=== PATIENT | male | born 1940 | race Caucasian/White ===

== ENCOUNTER → 2016-02-22 | Outpatient (CLI) | payer OTHER, MEDICARE ==
[~2016-02-22] MED LIST: ASP81CT PO; ATEN25TA PO; ATOR80TA PO; CLOP75TA PO; ESZO3TAB30 PO; FENO135C PO; FINA5TAB PO; HYDR-3583 PO; LEVO500T69 PO; LISI20TA PO; METR500T PO; MTF500T PO; MULT1TAB34 PO; OMEP-10 PO; OMEP40CA36 PO; PGLT30T PO
--- OUTSIDE RECORDS SUMMARY | 2016-02-22 10:11 | XMS REPORT | Continuity of Care Document ---
Author Author [facility] Organization [facility] Address Unknown Phone Unavailable Care Team Providers Care Sales Engineer Name Role Phone PCP Unavailable Source Comments Some departments are not documenting in the electronic medical record. If you do not see the information that you expected, contact Release of Information in the Health Information Management department at [phone] for further assistance in locating additional records.[facility] Active Allergies and Adverse Reactions Allergen Noted Date Severity Reactions Comments Lovaza 02/17/2016 Low STOMACH UPSET Motrin 02/17/2016 Low STOMACH UPSET Current Medications Prescription Sig. Disp. Refills Start End Date Status Date atorvastatin (LIPITOR) 80 Take 80 mg by mouth Active mg tablet daily. chlorthalidone (HYGROTON) Take 12.5 mg by mouth Active 25 mg tablet daily. clopiDOGrel (PLAVIX) 75 Take 75 mg by mouth Active mg tablet daily. eszopiclone(+) (LUNESTA) Take by mouth. Active 3 mg tablet glimepiride (AMARYL) 4 mg Take 4 mg by mouth daily Active tablet with breakfast. lisinopril (PRINIVIL; Take 20 mg by mouth Active ZESTRIL) 20 mg tablet daily. metFORMIN (GLUCOPHAGE) Take 1,000 mg by mouth Active 1,000 mg tablet twice daily with meals. nebivolol (BYSTOLIC) 5 mg Take 5 mg by mouth daily. Active tablet nitroglycerin Take 1 [place] by mouth Active (NITROLINGUAL) 400 every 5 minutes as needed mcg/spray translingual (for chest pain). spray omeprazole DR(+) Take 40 mg by mouth daily Active (PRILOSEC) 40 mg capsule before breakfast. tamsulosin (FLOMAX) 0.4 Take 0.4 mg by mouth Active mg capsule daily. Do not crush, chew or open capsules. Take 30 minutes following the same meal each day. vitamins, B complex tab Take 1 Tab by mouth Active daily. aspirin 81 mg chewable Chew 81 mg by mouth Active tablet daily. Take with food. finasteride (PROSCAR) 5 Take 5 mg by mouth daily. Active mg tablet buPROPion XL (WELLBUTRIN Take 150 mg by mouth Active XL) 150 mg tablet every morning. Do not crush or chew. Active Problems Problem Noted Date Weakness 02/17/2016 Most Recent Encounters Date Type Specialty Providers Description 02/17/2016 Clinical Neurology Weakness (Primary Dx); Support Lumbar radiculopathy, chronic 02/17/2016 Office Visit Neurology Evon Hogluin MD Weakness ( Primary Dx) 02/17/2016 Orders Only Neurology Evon Holguin MD Social History Tobacco Use Types Packs/Day Years Used Date Never Smoker Smokeless Tobacco: Never Used Alcohol Use Drinks/Week oz/Week Comments No Last Filed Vital Signs Vital Sign Reading Time Taken Blood Pressure 157/82 02/17/2016 9:52 AM DEVULCANIZER TENDER Pulse 82 02/17/2016 9:52 AM DEVULCANIZER TENDER Temperature - - Respiratory Rate - - Height 1.778 m (5' 10") 02/17/2016 9:52 AM DEVULCANIZER TENDER Weight 95.6 kg (210 lb 12.2 oz) 02/17/2016 9:52 AM DEVULCANIZER TENDER Body Mass Index 30.24 02/17/2016 9:52 AM DEVULCANIZER TENDER Oxygen Saturation - - Plan of Care Date Type Specialty Providers Description 11/09/2016 Appointment Neurology Evon Holguin MD [address] [facility] [address] [place] [address] [phone] (Fax) Health Maintenance Due Date Last Done Comments Physical (Comprehensive) 1947 Exam Pertussis Vaccine 1951 Tetanus Vaccine 04/15/1959 Colorectal Cancer 1992 Screening Shingles Vaccine 2002 Prevnar/Pneumovax (#1) 04/15/2007 Influenza Vaccine 10/07/2015 Results from Last 3 Months QUANTIFERON TB (02/17/2016 1:40 PM) Component Value Range Quantiferon TB NEGATIVEComment: NEGATIVE Negative test result. M. tuberculosis complex infection unlikely. NIL 0.00 IU/mL Mitogen-NIL 7.33 IU/mL TB-NIL 0.00Comment: IU/mL The Nil tube value is used to determine if the patient has a preexisting immune response which could cause a false-positive reading on the test. In order for a test to be valid, the Nil tube must have a value of less than or equal to 8.0 IU/mL. The mitogen control tube is used to assure the patient has a healthy immune status and also serves as a control for correct blood handling and incubation. It is used to detect false-negative readings. The mitogen tube must have a gamma interferon value of greater than or equal to 0.5 IU/mL higher than the value of the Nil tube. The TB antigen tube is coated with the M. tuberculosis specific antigens. For a test to be considered positive, the TB antigen tube value minus the Nil tube value must be greater than or equal to 0.35 IU/mL. For additional information, please refer to http://education.MobGold/faq/QFT (This link is being provided for informational/ educational purposes only.) REPORT COMMENT: FASTING:NO Test Performed at: [facility] [address] [place] [address] ERAN PÉREZ DO,MPH COPPER (02/17/2016 1:40 PM) Component Value Range Copper, Serum 102Comment: 70-175 mcg/dL Test Performed at: [facility] [address] [address] WIL CORTEZ MD,FCAP VITAMIN B12 (02/17/2016 1:40 PM) Component Value Range Vitamin B12 424Comment: 200-1100 pg/mL Test Performed at: [facility] [address] [place] [address] ERAN PÉREZ DO,MPH THYROID STIMULATING HORMONE-TSH (02/17/2016 1:40 PM) Component Value Range TSH 3rd Generation 2.05Comment: 0.40-4.50 mIU/L Test Performed at: [facility] [address] [place] [address] ERAN PÉREZ DO,MPH CBC AND DIFF (02/17/2016 1:40 PM) Component Value Range White Blood Cells 7.2 3.8-10.8 Thousand/uL RBC 4.77 4.20-5.80 Million/uL Hemoglobin 14.6 13.2-17.1 g/dL Hematocrit 43.9 38.5-50.0 % MCV 91.9 80.0-100.0 fL MCH 30.6 27.0-33.0 pg MCHC 33.3 32.0-36.0 g/dL RDW 13.7 11.0-15.0 % Platelet Count 166 140-400 Thousand/uL MPV 9.7 7.5-11.5 fL Absolute Neutrophil Count 5767 4661-2261 cells/uL Absolute Lymph Count 814 (L) 850-3900 cells/uL Absolute Monocyte Count 518 200-950 cells/uL Absolute Eosinophil Count 43 15-500 cells/uL Absolute Basophil Count 58 0-200 cells/uL Neutrophils 80.1 % Lymphocytes 11.3 % Monocytes 7.2 % Eosinophils 0.6 % Basophils 0.8Comment: % Test Performed at: [facility] [place] [address] [place] [address] ERAN PÉREZ DO,MPH ACETYLCHOL HISTORICAL INTERPRETER AB BINDING (02/17/2016 1:40 PM) Component Value Range Acetylcholine binding AB <0.30Comment: nmol/L Reference Ranges for Acetylcholine Receptor Binding Antibody: Negative: < or=0.30 nmol/L Equivocal: 0.31-0.49 nmol/L Positive: > or=0.50 nmol/L Test Performed at: [facility] [address] [place] [address] ANDRE GARDNER MD PHD SYPHILIS AB SCREEN (02/17/2016 1:40 PM) Component Value Range Syphilis AB, Total NegativeComment: Negative No antibodies to T. pallidum (the agent causing syphilis) were detected in the specimen. This result, however, does not exclude very recent T. pallidum infection; testing of a second specimen, collected 2-4 weeks after this specimen, is recommended if the index of suspicion for recent infection is high. Test Performed at: [facility] [address] [address] KESHAV PARKS MD,PHD METHYLMALONIC ACID, SERUM (02/17/2016 1:40 PM) Component Value Range Methylmalonic Acid 215Comment: 87-318 nmol/L Test Performed at: [facility] [address] [place] [address] KESHAV PARKS MD,PHD CREATINE KINASE-CPK (02/17/2016 1:40 PM) Component Value Range Creatine Kinase 376 (H)Comment: 44-196 U/L Test Performed at: [facility] [address] [place] [address] ERAN PÉREZ DO,MPH
--- NOTE | 2016-02-22 11:10 | Diagnostic Imaging Report ---
PROCEDURE: MRI lumbar spine. TECHNIQUE: Multiplanar, multisequence MRI of the lumbar spine was performed without contrast. INDICATION: Bilateral leg weakness. COMPARISON: Comparison made with prior examination from 11/02/2011. FINDINGS: The alignment of the lumbar spine is normal. The vertebral body heights are well maintained. There is no spondylolysis or spondylolisthesis. No fractures are identified. Conus medullaris is seen at L1 and is normal in appearance. The T12-L1 disc is unremarkable. The L1-2 disc is unremarkable. The L2-3 disc is unremarkable. At L3-4, there is loss of disc height and signal intensity. There is broad-based annular bulging, facet disease, and thickening of the ligamentum flavum. There is moderate central spinal stenosis with encroachment upon the lateral recesses bilaterally as well as moderately severe bilateral neural foraminal encroachment. At L4-5, there is almost complete loss of disc height and signal intensity. There is broad-based annular bulging, facet disease, and thickening of the ligamentum flavum. There is moderately severe trefoil spinal stenosis resulting in encroachment upon the lateral recess bilaterally as well as moderately severe bilateral neural foraminal encroachment. At L5-S1, there is broad-based annular bulging resulting in slight effacement of the ventral thecal sac and some mild left neural foraminal encroachment. The abdominal aorta is nonaneurysmal. There are no other focal soft tissue abnormalities. IMPRESSION: Moderately severe lower lumbar spondylosis and degenerative disc disease as described. There is fairly significant spinal stenosis at L3-4 and L4-5 again as discussed above. Dictated by: Dictated on workstation # [id number]
== END ==
LOC: RAD 10:03
PROVIDERS: ATTEND Psychiatry & Neurology Neuromuscular Medicine
DX: M48.06 Spinal stenosis, lumbar region (principal)
CPT/HCPCS: 72148

== ENCOUNTER → 2016-04-19 | Outpatient (CLI) | payer OTHER, MEDICARE ==
--- OUTSIDE RECORDS SUMMARY | 2016-04-19 07:43 | XMS REPORT | Continuity of Care Document ---
Author Author [facility] Organization [facility] Address Unknown Phone Unavailable Care Team Providers Care Bolt Man Name Role Phone PCP Unavailable Source Comments Some departments are not documenting in the electronic medical record. If you do not see the information that you expected, contact Release of Information in the Health Information Management department at [phone] for further assistance in locating additional records.[facility] Active Allergies and Adverse Reactions Allergen Noted [...] mouth daily. Active tablet nitroglycerin Take 1 [place] by mouth Active (NITROLINGUAL) 400 every 5 [...] Recent Encounters Date Type Specialty Providers Description 03/03/2016 Orders Only Neurology Evon Holguin MD Lumbar radiculopathy, chronic (Primary Dx); Weakness; Abnormal MRI, lumbar spine 03/03/2016 Orders Only Neurology Hasmukh Shahid LPN Weakness 02/28/2016 Scan Only Neurology Evon Holguin MD 02/17/2016 Clinical Neurology Weakness (Primary Dx); Support Lumbar radiculopathy, chronic 02/17/2016 Office Visit Neurology Evon Holguin MD Weakness ( Primary Dx) 02/17/2016 Orders Only Neurology Evon Holguin MD Social History Tobacco Use Types Packs/Day Years Used Date Never Smoker Smokeless Tobacco: Never Used Alcohol Use Drinks/Week oz/Week Comments No Last Filed Vital Signs Vital Sign Reading Time Taken Blood Pressure 157/82 02/17/2016 9:52 AM MANAGER MERCHANDISING Pulse 82 02/17/2016 9:52 AM MANAGER MERCHANDISING Temperature - - Respiratory Rate - - Height 1.778 m (5' 10") 02/17/2016 9:52 AM MANAGER MERCHANDISING Weight 95.6 kg (210 lb 12.2 oz) 02/17/2016 9:52 AM MANAGER MERCHANDISING Body Mass Index 30.24 02/17/2016 9:52 AM MANAGER MERCHANDISING Oxygen Saturation - - Plan of Care Date Type Specialty Providers Description 11/09/2016 Appointment Neurology Evon Holguin MD [address] [facility] [address] [place] [address] [phone] (Fax) Health Maintenance Due Date Last Done Comments Physical (Comprehensive) 1947 Exam Pertussis Vaccine 1953 Tetanus Vaccine 04/15/1959 Colorectal Cancer 1992 Screening Shingles Vaccine 2002 Prevnar/Pneumovax (#1) 04/15/2007 Influenza Vaccine 10/06/2016 Results from Last 3 Months MRI L-SPINE WO CONTRAST (02/22/2016)QUANTIFERON TB (02/17/2016 1:40 PM) Component Value Range [...] IU/mL. For additional information, please refer to http://education.[employer]/faq/QFT (This link is being provided for informational/ educational purposes only.) REPORT COMMENT: FASTING:NO Test Performed at: [facility] [address] [place] [address] ERAN PÉREZ DO,MPH COPPER (02/17/2016 1:40 PM) Component Value Range Copper, Serum 102Comment: 70-175 mcg/dL Test Performed at: [facility] [address] [address] WIL CORTEZ MD,FCAP VITAMIN B12 (02/17/2016 1:40 PM) Component Value Range Vitamin B12 424Comment: 200-1100 pg/mL Test Performed at: [facility] [address] [place] [address] ERAN PÉREZ DO,MPH THYROID STIMULATING HORMONE-TSH (02/17/2016 1:40 PM) Component Value Range TSH 3rd Generation 2.05Comment: 0.40-4.50 mIU/L Test Performed at: [facility] [address] [place] [address] ERAN PÉREZ DO,MPH CBC AND DIFF (02/17/2016 1:40 PM) Component Value Range White Blood Cells 7.2 3.8-10.8 Thousand/uL RBC 4.77 4.20-5.80 Million/uL Hemoglobin 14.6 13.2-17.1 g/dL Hematocrit 43.9 38.5-50.0 % MCV 91.9 80.0-100.0 fL MCH 30.6 27.0-33.0 pg MCHC 33.3 32.0-36.0 g/dL RDW 13.7 11.0-15.0 % Platelet Count 166 140-400 Thousand/uL MPV 9.7 7.5-11.5 fL Absolute Neutrophil Count 5767 4600-3724 cells/uL Absolute Lymph Count 814 (L) 850-3900 cells/uL Absolute Monocyte Count 518 200-950 cells/uL Absolute Eosinophil Count 43 15-500 cells/uL Absolute Basophil Count 58 0-200 cells/uL Neutrophils 80.1 % Lymphocytes 11.3 % Monocytes 7.2 % Eosinophils 0.6 % Basophils 0.8Comment: % Test Performed at: [facility] [address] [place] [address] ERAN PÉREZ DO,MPH ACETYLCHOL PER DIEM INTERPRETER AB BINDING (02/17/2016 1:40 PM) Component Value Range Acetylcholine binding AB <0.30Comment: nmol/L Reference Ranges for Acetylcholine Receptor Binding Antibody: Negative: < or=0.30 nmol/L Equivocal: 0.31-0.49 nmol/L Positive: > or=0.50 nmol/L Test Performed at: [facility] [address] [place] [address] ANDRE GARDNER MD PHD SYPHILIS AB SCREEN [...] recent infection is high. Test Performed at: [facility]/[employer] [address] KESHAV PARKS MD,PHD METHYLMALONIC ACID, SERUM (02/17/2016 1:40 PM) Component Value Range Methylmalonic Acid 215Comment: 87-318 nmol/L Test Performed at: [facility] [id number] [place] [address] KESHAV PARKS MD,PHD CREATINE KINASE-CPK (02/17/2016 1:40 PM) Component Value Range Creatine Kinase 376 (H)Comment: 44-196 U/L Test Performed at: [facility] [address] [place] [address] ERAN PÉREZ DO,MPH EMG ORDER (02/17/2016)MISCELLANEOUS LAB TEST (02/17/2016) Specimen Blood
--- NOTE | 2016-04-19 09:26 | Diagnostic Imaging Report ---
CLINICAL INDICATION: Patient has bilateral arm/leg weakness x2 years. No known injury. EXAM: MRI of the cervical spine performed without IV contrast. Sequences include sagittal T1, sagittal T2, sagittal T2 fat-sat, and axial T2. COMPARISON: None. FINDINGS: Cervical spine has normal alignment with no fracture or dislocation. There is normal craniocervical and anterior atlanto-odontoid alignment. Besides the areas of tight central canal stenosis at the C5-C6 and C6-C7 levels, the cervical spinal cord has normal anatomic appearance with no abnormal cord signal. Limited visualization of the posterior fossa is unremarkable. There is no paraspinal soft tissue abnormality. There are hypertrophic and flowing osteophytes seen anteriorly throughout cervical spine which may be related to DISH. C1-C2: There are degenerative spurs involving the atlantoodontoid anteriorly. There is a small periodontal pannus. C2-C3: There is a small posterior disc bulge. C3-C4: There is a mild diffuse disc bulge, minimal ligament flavum buckling and bilateral facet arthropathy. There is moderate central canal narrowing and mild bilateral neural foramen narrowing. C4-C5: There is a diffuse disc bulge and mild bilateral facet arthropathy. There is mild central canal narrowing. There is mild loss of intervertebral disc height. C5-C6: There is a diffuse disc bulge with a moderate sized left paracentral disc osteophyte complex, mild loss of intervertebral disc height, mild bilateral facet arthropathy. There is moderate to severe central canal narrowing and severe bilateral neural foramen narrowing. C6-C7: There is a diffuse disc bulge with a moderate-sized broad posterior disc extrusion/herniation. There is ligamentum flavum buckling and mild facet arthropathy. There is severe central canal narrowing with near complete effacement of the thecal sac. There is severe bilateral neural foramen narrowing. C7-T1: Unremarkable. IMPRESSION: 1: There is multilevel cervical spine degenerative disease including hypertrophic anterior flowing osteophytes which may be seen with DISH. 2: There is kxbnjxoi-ti-vsjjaj multilevel cervical spine degenerative disc disease which is worse at the C5-C6 and C6-C7 levels. 3: There is a diffuse disc bulge with broad posterior disc herniation component, ligamentum flavum buckling, and facet arthropathy which causes severe central canal narrowing and severe bilateral neural foramen narrowing. 4: There is a C5-C6 diffuse disc bulge with moderate left paracentral disc osteophyte complex which causes ibszantq-pd-kvptvw central canal narrowing and severe bilateral neural foramen narrowing. Dictated by: Dictated on workstation # [id number]
== END ==
LOC: RAD 07:39
PROVIDERS: ATTEND Nurse Practitioner
DX: M50.322 Other cervical disc degeneration at C5-C6 level (principal); M62.81 Muscle weakness (generalized); M48.06 Spinal stenosis, lumbar region
CPT/HCPCS: 72141

== ENCOUNTER → 2016-06-19 | Outpatient (CLI) | payer OTHER, MEDICARE ==
--- NOTE | 2016-06-19 09:49 | Diagnostic Imaging Report ---
INDICATION: Followup right renal cell carcinoma. COMPARISON: 06/11/[address] of the abdomen 09/13/2015. DISCUSSION: Status post partial right nephrectomy, stable. The right kidney measures 8.4 cm. The left kidney measures 10.3 cm. No hydronephrosis or suspicious renal mass identified. No shadowing stone identified. The right ureteral jet was visualized during the exam. The left ureteral jet was not visualized. Urinary bladder is unremarkable. The liver parenchyma is hyperechoic, consistent with diffuse fatty infiltration. There is a 2.3 cm hypoechoic nodule within the right hepatic lobe which is indeterminate and malignancy is not excluded. This was not seen with certainty on the previous CT exam. Recommend multiphase contrast-enhanced CT of the abdomen and pelvis for further evaluation and to exclude the presence of metastatic disease. IMPRESSION: 1. Status post partial right nephrectomy. 2. Indeterminate 2.3 cm nodule within the right hepatic lobe. Recommend pre-and postcontrast enhanced CT images of the abdomen and pelvis for further evaluation. 3. Fatty infiltration of liver. Dictated by: Dictated on workstation # [id number]
== END ==
LOC: RAD 09:01
PROVIDERS: ATTEND Specialist
DX: N40.1 Benign prostatic hyperplasia with lower urinary tract symptoms (principal); C64.9 Malignant neoplasm of unspecified kidney, except renal pelvis
CPT/HCPCS: 76770

== ENCOUNTER → 2016-11-03 | Outpatient (CLI) | payer OTHER, MEDICARE ==
--- NOTE | 2016-11-03 17:50 | Diagnostic Imaging Report ---
INDICATION: Neck surgery three months ago. Continued weakness of the upper extremity. FINDINGS: Three views show good alignment of the vertebral bodies. Anterior fusion is present at C5 through C7. Bilateral pedicle screws appear intact in good position. Anterior plate is intact. Interbody bone grafts are in good alignment. There is no encroachment noted upon the canal. Bony spondylosis with anterior bridging is noted at C4 and C5. The atlantoaxial joint appears normal. IMPRESSION: 1. Anterior cervical fusion with interbody bone graft appearing in good alignment and no evidence of hardware complications from C5 through C7. 2. Bony spondylosis with anterior bridging C4 and C5. Dictated by: Dictated on workstation # [id number]
== END ==
LOC: RAD 13:34
PROVIDERS: ATTEND Neurological Surgery
DX: M47.812 Spondylosis without myelopathy or radiculopathy, cervical region (principal); Z98.1 Arthrodesis status
CPT/HCPCS: 72040

== ENCOUNTER → 2017-07-24 | Outpatient (CLI) | payer MEDICARE, OTHER ==
[~2017-07-24] MED LIST changes: +CATHETER FLUSH 10 ML SYR IV PRN; +IOHEXOL 350 MG/ML 100 ML (OMNIPAQUE 350) VIAL IV ONE; +NS 100 ML (IVPB) BAG IV ONE
[2017-07-24 09:54] LABS: CREATININE SERUM 1.29 MG/DL (0.60-1.30)
--- NOTE | 2017-07-24 12:52 | Diagnostic Imaging Report ---
PROCEDURE: CT abdomen and pelvis with contrast. TECHNIQUE: Multiple contiguous axial images were obtained through the abdomen and pelvis after administration of intravenous contrast. INDICATION: Low pelvic pain, right groin pain. History of right renal cell carcinoma. CORRELATION STUDY: 09/13/2015, 06/13/2009. FINDINGS: LOWER THORAX: Minimal dependent atelectasis and/or scarring. Calcified granuloma in the left infrahilar region. There does appear to be likely significant coronary artery calcification with a normal sized heart. EG junction unremarkable. LIVER: Enlarged at greater than 20 cm craniocaudal length and with diffuse hepatic steatosis. GALLBLADDER: Absent with clips in the fossa. No significant bile duct dilatation. SPLEEN: Unremarkable. PANCREAS: Unremarkable. ADRENAL GLANDS: Unremarkable. KIDNEYS: Surgical change of a partial right nephrectomy. Otherwise, normal enhancement of the remaining renal parenchyma. Small nonobstructing stone inferior pole left kidney. Contrast is present in the distal ureters. ABDOMINAL AORTA: Mild to moderate wall calcification. This includes calcification at the origin of bilateral renal arteries as well as celiac trunk. Early, mild narrowing of the renal arteries not excluded. Nonaneurysmal. Moderate calcification of the iliac arteries as well. GASTROINTESTINAL TRACT: Stomach decompressed resulting in likely gastric wall thickening. Few disproportionate areas of small bowel wall thickening and slight distention of low pelvis present. This appears to be likely peristaltic. No transition point or findings to suggest obstruction. Colon relatively decompressed and contains some contrast throughout the entirety. Normal appendix present. Few colon diverticuli are noted. No abdominal ascites or free air. No pathologically enlarged abdominal pelvic lymphadenopathy. URINARY BLADDER: Unremarkable. REPRODUCTIVE: Prostate gland very mildly prominent with a few calcifications. OSSEOUS STRUCTURES: Multilevel decompressive laminectomies at L3-L5. Advanced degenerative changes are present. Marked disc space narrowing at L4-5 and L5-S1 levels. There is some degree of foraminal narrowing at these levels as well as L3-L4 level. No acute bony abnormality or marisol bony destructive change. Degenerative change of bilateral hips. OTHER: Very slight unchanged stranding of the right inguinal region. There does appear to be small fat-containing inguinal hernias. No significant bowel inclusion. IMPRESSION: 1. Negative for acute abnormality of the abdomen or pelvis. Perhaps very small fat-containing inguinal hernias but overall appear unremarkable. 2. Partial right nephrectomy appearing unchanged. 3. Hepatomegaly with hepatic steatosis. Dictated by: Dictated on workstation # [id number]
== END ==
LOC: RAD 09:21
PROVIDERS: ATTEND Surgery
DX: K40.90 Unilateral inguinal hernia, without obstruction or gangrene, not specified as recurrent (principal); K76.0 Fatty (change of) liver, not elsewhere classified; Z90.5 Acquired absence of kidney; Z85.528 Personal history of other malignant neoplasm of kidney
CPT/HCPCS: 36415; 74177; 82565; 84520

== ENCOUNTER → 2017-09-07 | Outpatient (CLI) | payer MEDICARE, OTHER ==
[~2017-09-07] MED LIST changes: -CATHETER FLUSH 10 ML SYR IV PRN; -IOHEXOL 350 MG/ML 100 ML (OMNIPAQUE 350) VIAL IV ONE; -NS 100 ML (IVPB) BAG IV ONE
--- NOTE | 2017-09-07 16:51 | Diagnostic Imaging Report ---
PROCEDURE: US Renal Bilateral. TECHNIQUE: Multiple Real-time grayscale images were obtained over the kidneys in various projections bilaterally. INDICATION: Renal cell carcinoma. FINDINGS: The right kidney measures 8.7 x 4.8 x 4.2 cm. The left kidney measures 11.3 x 6.1 x 4.9 cm. Both kidneys demonstrate normal renal cortical thickness and echogenicity. There is no hydronephrosis, calculus, or mass. Bilateral ureteral jets are seen within the bladder. The bladder is normal. The IVC was not imaged. IMPRESSION: Unremarkable sonographic appearance of both kidneys. Dictated by: Dictated on workstation # [id number]
== END ==
LOC: RAD 14:54
PROVIDERS: ATTEND Specialist
DX: C64.9 Malignant neoplasm of unspecified kidney, except renal pelvis (principal); N40.1 Benign prostatic hyperplasia with lower urinary tract symptoms
CPT/HCPCS: 76770

== ENCOUNTER → 2018-02-01 | Outpatient (CLI) | payer MEDICARE, OTHER ==
--- NOTE | 2018-02-01 20:53 | Diagnostic Imaging Report ---
PROCEDURE: CT head without contrast. TECHNIQUE: Multiple contiguous axial images were obtained through the brain without the use of intravenous contrast. DATE: February 01, 2018. COMPARISON: None. INDICATION: 77-year-old male, altered mental status. Arm and leg weakness. FINDINGS: The ventricles and cerebral spinal fluid spaces are of normal size and configuration for the patient's age. There is no mass effect or midline shift. There is no acute intracranial hemorrhage. There is no abnormal extra-axial fluid collection. There is nonspecific partial opacification of the right sphenoid sinus. The mastoid air cells and middle ears are well aerated bilaterally. IMPRESSION: 1. No identified acute intracranial abnormality. 2. Nonspecific partial opacification within the right sphenoid sinus. Dictated by: Dictated on workstation # [id number]
== END ==
LOC: RAD 15:21
PROVIDERS: ATTEND Family Medicine
DX: J34.89 Other specified disorders of nose and nasal sinuses (principal); R41.82 Altered mental status, unspecified; Z85.528 Personal history of other malignant neoplasm of kidney
CPT/HCPCS: 70450

== ENCOUNTER 2018-05-16 15:00 | Outpatient (CLI) | payer MEDICARE, OTHER ==
[~2018-05-16] VITALS: Ht 177.8 cm; Wt 93.9 kg
[2018-05-16] MEDS ORDERED: ATOR80TA76 PO (15:59)
[2018-05-16] MEDS ORDERED: FINA5TAB6 PO (15:59)
[2018-05-16] MEDS ORDERED: BUPR150T20 PO (15:59)
[2018-05-16] MEDS ORDERED: ESZO3TAB39 PO (15:59)
[2018-05-16] MEDS ORDERED: CLOP75TA69 PO (15:59)
[2018-05-16] MEDS ORDERED: LISI-552 PO (15:59)
[2018-05-16] MEDS ORDERED: NEBI5TAB8 PO (15:59)
[2018-05-16] MEDS ORDERED: GLIM4TAB PO (15:59)
[2018-05-16] MEDS ORDERED: TAMS0.4C98 PO (15:59)
[2018-05-16] MEDS ORDERED: METF-399 PO (15:59)
[2018-05-16] MEDS ORDERED: ASPI-999 PO (15:59)
[2018-05-16] MEDS ORDERED: OMEP40CA36 PO (15:59)
[2018-05-16] MEDS ORDERED: CHLO25TA22 PO (15:59)
== END 2018-05-16 16:00 ==
LOC: PREOP 15:00
PROVIDERS: ATTEND Surgery
DX: Z01.818 Encounter for other preprocedural examination (principal)

== ENCOUNTER 2018-05-22 09:17 | Day surgery (SDC) | payer MEDICARE, OTHER ==
[~2018-05-22] VITALS: Ht 177.8 cm; Wt 93.9 kg
[~2018-05-22 09:17] MED LIST changes: +ASPI-999 PO; +ATOR80TA76 PO; +BUPR150T20 PO; +CHLO25TA22 PO; +CLOP75TA69 PO; +ESZO3TAB39 PO; +FINA5TAB6 PO; +GLIM4TAB PO; +LISI-552 PO; +METF-399 PO; +NEBI5TAB8 PO; +TAMS0.4C98 PO
[2018-05-22] MEDS ORDERED: NS IV 500 ML 500 ML ONE (09:20)
[2018-05-22] MEDS ORDERED: NS IV 500 ML 500 ML IV PRN (09:33)
[2018-05-22 09:35] VITALS: BP 148/77
--- NOTE | 2018-05-22 09:42 | Conscious Sedation/ASA ---
Conscious Sedation Pre-Proced Time 09:30 ASA Score 2 For ASA 3 and 4: Consider anesthesia and medical clearance. Also, for patients with a history of failed moderate sedation consider anesthesia. Airway Lungs Heart ASA score ASA 1: a normal healthy patient ASA 2: a patient with a mild systemic disease (mid diabetes, controlled hypertension, obesity ASA 3: a patient with a severe systemic disease that limits activity (angina , COPD, prior Myocardial infarction) ASA 4: a patient with an incapacitating disease that is a constant threat to life (CHF, renal failure) ASA 5: a moribund patient not expected to survive 24 hrs. (ruptured aneurysm) ASA 6: a declared brain- patient whose organs are being harvested. For emergent operations, add the letter E after the classification Mallampati Classification Grade 2 Sedation Plan Analgesia, Amnesia, Plan communicated to team members, Discussed options with patient/fam, Discussed risks with patient/fam The patient is an appropriate candidate to undergo the planned procedure, sedation, and anesthesia. The patient immediately re-assessed prior to indication. VIINTA SIDDIQI MD May 22, 2018 09:42
--- NOTE | 2018-05-22 09:43 | Progress Note-Pre Operative ---
Pre-Operative Progress Note H&P Reviewed The H&P was reviewed, patient examined and no changes noted. Date Seen by Provider: May 22, 2018 Time Seen by Provider: : Date H&P Reviewed: May 22, 2018 Time H&P Reviewed: :30 Pre-Operative Diagnosis: screening colonoscopy VINITA SIDDIQI MD May 22, 2018 09:43
--- NOTE | 2018-05-22 09:44 | Discharge Inst-Surgical ---
D/C Lap Instructions-NEERU Follow Up Activity as tolerated High Fiber Diet 25g or more per day Avoid Alcohol, Caffeine, Spicy [place] and Acid foods. Drink 64 fluid oz or more of fluids per day. Symptoms to Report: Fever over 101 degree F, Nausea/Vomiting If any problems/questions: Contact your physician or go to Emergency Room VINITA SIDDIQI MD May 22, 2018 09:44
[2018-05-22] MEDS ORDERED: ACETAMINOPHEN 325 MG TABLET PO PRN (09:45)
[2018-05-22] MEDS ORDERED: HYDROcodone/APAP 5 MG/325 MG (LORTAB) TAB PO PRN (09:45)
[2018-05-22] MEDS ORDERED: LIDOCAINE JELLY 2% 6 ML SYRINGE MM PRN (09:45)
[2018-05-22] MEDS ORDERED: MIDAZOLAM 2 MG/2 ML (VERSED) VIAL IVP ONE (09:45)
[2018-05-22] MEDS ORDERED: ONDANSETRON 4 MG/2 ML (SDV) Z0FRAN IV PRN (09:45)
[2018-05-22] MEDS ORDERED: morphine INJ 10 MG/ML 1ML (SYR OR VIAL) IV PRN (09:45)
[2018-05-22] MEDS ORDERED: fentaNYL INJECTION 100 MCG/2 ML AMP IVP ONE (09:45)
[2018-05-22] MEDS ORDERED: fentaNYL INJECTION 100 MCG/2 ML AMP ONE (10:34)
[2018-05-22] MEDS ORDERED: MIDAZOLAM 2 MG/2 ML (VERSED) VIAL ONE ×4 (10:34→10:35)
[2018-05-22] MEDS ORDERED: LIDOCAINE JELLY 2% 6 ML SYRINGE ONE (10:36)
--- NOTE | 2018-05-22 11:22 | Progress Note-Post Operative ---
Post-Operative Progess Note Surgeon (s)/Black Topper (s) Surgeon VINITA SIDDIQI MD Black Topper: none Pre-Operative Diagnosis screening colonoscopy Post-Operative Diagnosis chronic mild stage 1 ext and int hemorrhoids, small pedunculated polyp desc and trans colon. Procedure & Operative Findings Date of Procedure 05/22/18 Procedure Performed/Findings Colonoscopy with bx. Anesthesia Type CS Estimated Blood Loss Estimated blood loss (mL): minimal Specimens/Packing Specimens Removed desc and trans colon polyps VINITA SIDDIQI MD May 22, 2018 11:22
[2018-05-22 11:25] VITALS: BP 115/65
[2018-05-22 11:55] VITALS: BP 124/74
[2018-05-22 12:03] VITALS: BP 124/74
--- NOTE | 2018-05-22 15:12 | OPERATIVE REPORT ---
DATE OF SERVICE: 05/22/2018 ATTENDING PRIMARY CARE PHYSICIAN: Dr. Grant. PREOPERATIVE DIAGNOSIS: Screening colonoscopy. POSTOPERATIVE DIAGNOSES: Mild stage I external and internal hemorrhoids, small polyp of the descending colon and transverse colon, both approximately 2 to 3 mm in size. PROCEDURE: Colonoscopy with biopsy. SURGEON: Vinita Siddiqi MD ANESTHESIA: Conscious sedation. ESTIMATED BLOOD LOSS: Minimal. FINDINGS: Mild chronic stage I external and internal hemorrhoids, not actively edematous nor inflamed and no bleeding. Prostate gland was palpable and appeared normal. There was a small polyp of the descending colon as well as the transverse colon, both pedunculated and small approximately 2 mm in size. These were both biopsied and destroyed using forceps and electrocautery. DISPOSITION: The patient tolerated the procedure well. INDICATIONS: The patient is a 78-year-old male in need of a screening colonoscopy. His last colonoscopy was in 2004 and he believes this to be normal. He states that he is otherwise doing well. Does not report any major issues with diarrhea nor constipation as well as no red blood per rectum nor any dark tarry stools. He also does not report any family history of colon cancer. DESCRIPTION OF PROCEDURE: The patient was brought to the endoscopy suite, laid in the left lateral decubitus position. After adequate IV pain and sedative medications and conscious sedation anesthesia, a digital rectal examination was performed. Mild stage I external and internal hemorrhoids were identified, which were not actively edematous nor inflamed and no bleeding. Normal sphincter tone was felt and there were no palpable masses. Prostate gland was palpable and appeared normal. The endoscope was then intubated to the anus and rectum was gently insufflated. The endoscope was then advanced to the valves of [place] of rectum with no polyps or any neoplasms identified. Through the sigmoid colon, there was no diverticulosis identified. At the level of the descending colon, a small polyp approximately 2 to 3 mm in size was identified, which was pedunculated. This was biopsied and destroyed using forceps and electrocautery with visualization of good hemostasis. The endoscope was then advanced through the transverse colon where a similar polyp was identified, biopsied and destroyed as well. The endoscope was then advanced to the remainder of the descending, transverse, ascending colon and then to the cecum. These segments were normal. The endoscope was then slowly withdrawn while taking a second look and suctioning of residual air with no additional findings. The patient tolerated the procedure well. We will recommend medical management with high fiber diet with at least 30 grams of fiber daily as well as significant amounts of water as well to promote soft stools on a daily basis. We will await the biopsy results. If these are hyperplastic polyps or tubular adenomas, he may wait another 10 years for next colonoscopy. However, if there is a villous component, we will recommend a followup colonoscopy in 3 years. Job ID: [id number] DocumentID: [id number] Dictated Date: 05/22/2018 11:19:48 [employer]els Technology Development Manager Date: 05/22/2018 15:11:27 Dictated By: VINITA SIDDIQI MD
== END 2018-05-22 12:03 | disposition home or self-care (01) ==
LOC: ENDO 09:17
PROVIDERS: ATTEND Surgery
DX: Z12.11 Encounter for screening for malignant neoplasm of colon (principal); D12.4 Benign neoplasm of descending colon; K64.0 First degree hemorrhoids; E11.9 Type 2 diabetes mellitus without complications; E78.00 Pure hypercholesterolemia, unspecified; I25.10 Atherosclerotic heart disease of native coronary artery without angina pectoris; I10 Essential (primary) hypertension; K21.9 Gastro-esophageal reflux disease without esophagitis; N40.0 Benign prostatic hyperplasia without lower urinary tract symptoms; F41.9 Anxiety disorder, unspecified; R53.82 Chronic fatigue, unspecified; Z79.899 Other long term (current) drug therapy; Z79.84 Long term (current) use of oral hypoglycemic drugs; Z79.82 Long term (current) use of aspirin
CPT/HCPCS: 82962

== ENCOUNTER 2018-08-23 18:52 | Observation (INO) | payer MEDICARE, OTHER ==
[~2018-08-23] VITALS: Ht 177.8 cm; Wt 94.5 kg
[2018-08-23 19:11] LABS: BASOPHILS % (AUTO) 0 % (0-10); EOSINOPHILS # (AUTO) 0.1 10^3/uL (0.0-0.3); EOSINOPHILS % (AUTO) 2 % (0-10); HEMATOCRIT 43 % (40-54); HEMOGLOBIN 14.5 G/DL (13.3-17.7); LYMPHOCYTES # (AUTO) 1.1 X 10^3 (1.0-4.0); LYMPHOCYTES % (AUTO) 17 % (12-44); MEAN CORPUSCULAR HEMOGLOBIN 30 PG (25-34); MEAN CORPUSCULAR HGB CONC 34 G/DL (32-36); MEAN CORPUSCULAR VOLUME 89 FL (80-99); MEAN PLATELET VOLUME 10.4 FL (7.4-10.4); MONOCYTES # (AUTO) 0.6 X 10^3 (0.0-1.0); MONOCYTES % (AUTO) 10 % (0-12); NEUTROPHILS # (AUTO) 4.6 X 10^3 (1.8-7.8); NEUTROPHILS % (AUTO) 71 % (42-75); PLATELET COUNT 168 10^3/uL (130-400); RED CELL DISTRIBUTION WIDTH 13.2 % (10.0-14.5); WHITE BLOOD COUNT 6.5 10^3/uL (4.3-11.0)
[2018-08-23] MEDS ORDERED: ASPIRIN 81 MG CHEW (CHILDREN'S ASA) PO ONE (19:15)
[2018-08-23 19:17] LABS: INR 0.9 (0.8-1.4); PROTHROMBIN TIME PATIENT 12.7 SEC (12.2-14.7)
[2018-08-23 19:25] LABS: ALANINE AMINOTRANSFERASE 71 U/L (0-55); ALBUMIN 4.3 GM/DL (3.2-4.5); ALKALINE PHOSPHATASE 66 U/L (40-136); BILIRUBIN,TOTAL 0.4 MG/DL (0.1-1.0); BUN/CREATININE RATIO 11; CALCIUM 9.5 MG/DL (8.5-10.1); CARBON DIOXIDE 27 MMOL/L (21-32); CHLORIDE 99 MMOL/L (98-107); CREATININE SERUM 1.38 MG/DL (0.60-1.30); GFR ESTIMATED 50; GLUCOSE 113 MG/DL (70-105); MAGNESIUM 1.4 MG/DL (1.8-2.4); POTASSIUM 3.7 MMOL/L (3.6-5.0); SODIUM 136 MMOL/L (135-145); TOTAL PROTEIN 7.1 GM/DL (6.4-8.2)
--- NOTE | 2018-08-23 19:43 | Diagnostic Imaging Report ---
Examination: AP upright chest Indication: Chest pain. Comparison: Chest radiograph performed on 11/16/2015. Findings: The lungs are clear and the pulmonary vasculature is normal. No pneumothorax or large pleural effusion. The cardiomediastinal silhouette is unchanged. No acute osseous abnormality is appreciated. Partially visualized cervical fusion hardware is demonstrated. IMPRESSION: No radiographic evidence of acute chest disease. No significant change from prior. Dictated by: Dictated on workstation # [id number]
[2018-08-23] MEDS ORDERED: MAGNESIUM 1 GM/100 ML IVPB 100 ML IV ONE (20:00)
--- NOTE | 2018-08-23 20:11 | ED Chest Pain ---
General Chief Complaint: Chest Pain Stated Complaint: CP Nursing Triage Note: AMBULATORY TO ED ROOM 5 WITH C/O CHEST FULLNESS. STARTED 2 DAYS AGO. DOES NOT RADIATE AND NO PAIN. 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 Nursing Sepsis Screen: No Definite Risk Source: patient, family Exam Limitations: no limitations History of Present Illness Date Seen by Provider: Aug 23, 2018 Time Seen by Provider: 18:53 Initial Comments This 78 gentleman presents to the emergency room with complaints of chest pain intermittently for the past few days. He had chest pain described as a pain and fullness for a few hours this afternoon. He believes his pain might be a little worse with exertion. He denies any pain on arrival. He took aspirin 81 mg one hour prior to arrival. He had a skin lesion removed from his chest on August 19. He has some minor inflammation around this incision and sutures but he denies any pain directly associated with this. Patient has a history of numerous stents placed at [facility] and [place] in [place]. He previously was a patient of Dr. Barbosa but has transferred his care to Dr. Boyd since Dr. Barbosa retired. His primary care provider is Dr. CONTRERAS. He reports having a cardiac angiogram performed about 2 years ago in preparation for back surgery. He reports no abnormal findings at that time. He did not try nitroglycerin spray that he has at home for the most recent episodes of chest pain. He has hypertensive on arrival. Allergies and Home Medications Allergies Coded Allergies: Sulfa (Sulfonamide Antibiotics) (Unverified Allergy, Unknown, 07/24/17) Home Medications Aspirin 81 Mg Tab.chew, 81 MG PO DAILY, (Reported) Atorvastatin Calcium 80 Mg Tablet, 80 MG PO HS, (Reported) Bupropion HCl 150 Mg Tablet.er, 150 MG PO DAILY, (Reported) Chlorthalidone 25 Mg Tablet, 12.5 MG PO DAILY, (Reported) take 1/2 of 25mg tab Clopidogrel Bisulfate 75 Mg Tablet, 75 MG PO DAILY, (Reported) Eszopiclone 3 Mg Tablet, 3 MG PO HS, (Reported) Finasteride 5 Mg Tablet, 5 MG PO DAILY, (Reported) Glimepiride 4 Mg Tablet, 4 MG PO DAILY, (Reported) Lisinopril 20 Mg Tablet, 20 MG PO DAILY, (Reported) Metformin HCl 1,000 Mg Tablet, 1,000 MG PO BID, (Reported) Nebivolol HCl 5 Mg Tablet, 5 MG PO DAILY, (Reported) Omeprazole 40 Mg Capsule.dr, 40 MG PO DAILY, (Reported) Tamsulosin HCl 0.4 Mg Cap, 0.4 MG PO DAILY, (Reported) Patient Home Medication List Home Medication List Reviewed: Yes Review of Systems Review of Systems Constitutional: no symptoms reported EENTM: No Symptoms Reported Respiratory: Shortness of Air (chronic and stated is unchanged) Cardiovascular: See HPI Gastrointestinal: No Symptoms Reported Genitourinary: No Symptoms Reported Musculoskeletal: see HPI Skin: see HPI Psychiatric/Neurological: No Symptoms Reported Endocrine: No Symptoms Reported Hematologic/Lymphatic: No Symptoms Reported Past Bnarpad-Leqiba-Atiftq Hx Past Med/Social Hx: Reviewed and Corrections made Patient Social History Alcohol Use: Occasionally Uses Recreational Drug Use: No Smoking Status: Never a Smoker 2nd Hand Smoke Exposure: No Recent Foreign Travel: No Contact w/Someone Who Travel: No Recent Infectious Disease Expo: No Recent Hopitalizations: No Physical Abuse: No Sexual Abuse: No Mistreated: No Fear: No Immunizations Up To Date Date of Pneumonia Vaccine: May 16, 2012 Date of Influenza Vaccine: Nov 05, 2017 Seasonal Allergies Seasonal Allergies: No Past Medical History Surgeries: Yes (R kidney tumor removed, stents x8 total, neck sx, back sx) Coronary Stent, Gallbladder Respiratory: No Cardiac: Yes (stents x8) Coronary Artery Disease, High Cholesterol, Hypertension, Irregular Heartbeat Neurological: No Reproductive Disorders: No Genitourinary: Yes (hx benign kidney tumor removed) Benign Prostatic Hyperpl Gastrointestinal: Yes Gastroesophageal Reflux Musculoskeletal: Yes (chronic lower extremity weakness) Chronic Back Pain Endocrine: Yes Diabetes, Non-Insulin dep HEENT: Yes Cataract Cancer: Yes Kidney Did You Recieve Any Treatments: Yes What Type of Treatment Did You: Surgical Intervention Psychosocial: Yes (chronic fatique) Anxiety Integumentary: No Blood Disorders: No Physical Exam Vital Signs Vital Signs - First Documented 08/23/18 18:53 Temp 97.5 Pulse 96 Resp 18 B/P (MAP) 195/91 (125) O2 Delivery Room Air Capillary Refill : Less Than 3 Seconds Height, Weight, BMI Height: 5'10.00" Weight: 205lbs. 0oz. 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 Mild erythema. No drainage or evidence of infection. Nontender.) Progress/Results/Core Measures Results/Orders Lab Results Laboratory Tests Test 08/23/18 18:58 08/23/18 21:00 Range/Units White Blood Count 6.5 4.3-11.0 10^3/uL Red Blood Count 4.79 4.35-5.85 10^6/uL Hemoglobin 14.5 13.3-17.7 G/DL Hematocrit 43 40-54 % Mean Corpuscular Volume 89 80-99 FL Mean Corpuscular Hemoglobin 30 25-34 PG Mean Corpuscular Hemoglobin Concent 34 32-36 G/DL Red Cell Distribution Width 13.2 10.0-14.5 % Platelet Count 168 130-400 10^3/uL Mean Platelet Volume 10.4 7.4-10.4 FL Neutrophils (%) (Auto) 71 42-75 % Lymphocytes (%) (Auto) 17 12-44 % Monocytes (%) (Auto) 10 0-12 % Eosinophils (%) (Auto) 2 0-10 % Basophils (%) (Auto) 0 0-10 % Neutrophils # (Auto) 4.6 1.8-7.8 X 10^3 Lymphocytes # (Auto) 1.1 1.0-4.0 X 10^3 Monocytes # (Auto) 0.6 0.0-1.0 X 10^3 Eosinophils # (Auto) 0.1 0.0-0.3 10^3/uL Basophils # (Auto) 0.0 0.0-0.1 10^3/uL Prothrombin Time 12.7 12.2-14.7 SEC INR Comment 0.9 0.8-1.4 Activated Partial Thromboplast Time 27 24-35 SEC Sodium Level 136 135-145 MMOL/L Potassium Level 3.7 3.6-5.0 MMOL/L Chloride Level 99 98-107 MMOL/L Carbon Dioxide Level 27 21-32 MMOL/L Anion Gap 10 5-14 MMOL/L Blood Urea Nitrogen 15 7-18 MG/DL Creatinine 1.38 H 0.60-1.30 MG/DL Estimat Glomerular Filtration Rate 50 BUN/Creatinine Ratio 11 Glucose Level 113 H 70-105 MG/DL Calcium Level 9.5 8.5-10.1 MG/DL Corrected Calcium 9.3 8.5-10.1 MG/DL Magnesium Level 1.4 L 1.8-2.4 MG/DL Total Bilirubin 0.4 0.1-1.0 MG/DL Aspartate Amino Transf (AST/SGOT) 39 H 5-34 U/L Alanine Aminotransferase (ALT/SGPT) 71 H 0-55 U/L Alkaline Phosphatase 66 40-136 U/L Myoglobin 113.0 H 10.0-92.0 NG/ML Troponin I < 0.028 < 0.028 <0.028 NG/ML B-Type Natriuretic Peptide 56.5 <100.0 PG/ML Total Protein 7.1 6.4-8.2 GM/DL Albumin 4.3 3.2-4.5 GM/DL My Orders Orders - ANITHA MORALES MD Cbc With Automated Diff (08/23/18 19:04) Magnesium (08/23/18 19:04) Chest 1 View, Ap/Pa Only (08/23/18 19:04) Ekg Tracing (08/23/18 19:04) Cardiac Profile 1 (08/23/18 19:04) Comprehensive Metabolic Panel (08/23/18 19:04) Myoglobin Serum (08/23/18 19:04) Protime With Inr (08/23/18 19:04) Partial Thromboplastin Time (08/23/18 19:04) O2 (08/23/18 19:04) Monitor-Rhythm Ecg Trace Only (08/23/18 19:04) Lipid Panel (08/24/18 06:00) Ed Iv/Invasive Line Start (08/23/18 19:04) Aspirin Chewable Tablet (Baby Aspirin Ch (08/23/18 19:15) BNP (08/23/18 19:06) Magnesium 1 Gm/100 Ml Ivpb (Magnesium Moreno (08/23/18 20:00) Troponin I (08/23/18 21:00) Magnesium Oxide Tablet (Mag Ox Tablet) (08/23/18 21:00) Cho 60g/M 3snack (16-2000 Cesar) (08/23/18 Dinner) Medications Given in ED Current Medications Medications Dose Ordered Sig/Osbaldo Route Start Time Stop Time Status Last Admin Dose Admin Magnesium Oxide 400 mg ONCE ONCE PO 08/23/18 21:00 08/23/18 21:01 DC 08/23/18 20:59 400 MG Magnesium Sulfate/ Dextrose 100 ml @ 100 mls/hr ONCE ONCE IV 08/23/18 20:00 08/23/18 20:59 DC 08/23/18 20:09 100 MLS/HR Vital Signs/I&O 08/23/18 08/23/18 18:53 18:53 Temp 97.5 Pulse 96 Resp 18 B/P (MAP) 195/91 (125) O2 Delivery Room Air 08/24/18 00:00 Intake Total 1000 ml Balance 1000 ml Blood Pressure Mean: 125 Progress Progress Note #1: Time: 20:09 Progress Note Patient is denying any pain since arrival. Labs were reviewed. Troponin was negative. Magnesium was low at 1.4. We are administering a gram of magnesium sulfate by IV route. This will be followed by an oral dose of mag ox. A 2 hour troponin will be obtained and then we will discuss disposition. He reports jessica ng on magnesium supplementation previously in an attempt to treat chronic leg weakness. He ran out of this medication about 2 weeks ago. Blood pressure has been improving without any particular treatment. Progress Note #2: Progress Note Magnesium was replaced. Repeat troponin was negative. Case was discussed with Dr. Stafford. Although patient has remained free of pain and the repeat troponin was negative, Dr. Stafford has reservations about this patient returning home with having significant coronary artery disease and diabetes. He would like the patient admitted and observed. Case was also discussed with Dr. Funez. Initial ECG Impression Date: Aug 23, 2018 Initial ECG Impression Time: 18:55 Initial ECG Rate: 88 Initial ECG Rhythm: Normal Sinus Initial ECG Impression: Normal Comment Normal sinus rhythm with no ST elevation or depression. No abnormal intervals or axis deviation. Diagnostic Imaging Diagonstic Imaging: Xray Plain Films/CT/US/NM/MRI: chest Comments Chest x-ray viewed by me and report reviewed. See report below: NAME: CHARO FRANCO [facility] REC#: [id number] PT STATUS: REG ER : 1940 PHYSICIAN: ANITHA MORALES MD ADMIT DATE: 08/23/18/ER Draft Date of Exam:08/23/18 CHEST 1 VIEW, AP/PA ONLY Examination: AP upright chest Indication: Chest pain. Comparison: Chest radiograph performed on 11/16/2015. Findings: The lungs are clear and the pulmonary vasculature is normal. No pneumothorax or large pleural effusion. The cardiomediastinal silhouette is unchanged. No acute osseous abnormality is appreciated. Partially visualized cervical fusion hardware is demonstrated. IMPRESSION: No radiographic evidence of acute chest disease. No significant change from prior. Dictated on workstation # [id number] Dict: 08/23/181938 Trans: 08/23/181941 [facility] [id number] Interpreted by: DAMON CHOWDARY DO Departure Communication (Admissions) Time/Spoke to Admitting Phy: 22:10 Dr. Funez Time/Spoke to Consulting Phy: 21:50 Dr. Stafford Impression Primary Impression: Chest pain Qualified Codes: R07.9 - Chest pain, unspecified Disposition: ADMITTED INPATIENT Condition: Improved Admissions Decision to Admit Reason: Admit from ER (General) Decision to Admit/Date: Aug 23, 2018 Time/Decision to Admit Time: 21:50 Departure-Patient Inst. Referrals: MARIA FERNANDA CONTRERAS DO (PCP/Family) Primary Care Physician ANITHA MORALES MD Aug 23, 2018 20:11
[2018-08-23] MEDS ORDERED: MAGNESIUM OXIDE (MAG-OX)400 MG TAB PO ONE (21:00)
--- OUTSIDE RECORDS SUMMARY | 2018-08-23 21:56 | XMS REPORT | Clinical Summary ---
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 If you d o not see the information that you expected, contact Release of Information in [facility] Mobile Multimedia Information Management department at [phone] for further assistan ce in locating additional records.[facility] Allergies Comments Active Allergy Reactions Severity Noted Date Rawson-3 Acid Ethyl Esters STOMACH UPSET Low 02/17/2016 Ibuprofen STOMACH UPSET Low 02/17/2016 Medications End Date Status Medication Sig Dispensed Refills Start Date Active atorvastatin (LIPITOR) 80 Take 80 mg by 0 mg tablet mouth daily. Active chlorthalidone (HYGROTON) Take 12.5 mg 0 25 mg tablet by mouth daily. Active clopiDOGrel (PLAVIX) 75 Take 75 mg by 0 mg tablet mouth daily. Active eszopiclone(+) (LUNESTA) Take by 0 3 mg tablet mouth. Active glimepiride (AMARYL) 4 mg Take 4 mg by 0 tablet mouth daily with breakfast. Active lisinopril (PRINIVIL; Take 20 mg by 0 ZESTRIL) 20 mg tablet mouth daily. Active metFORMIN (GLUCOPHAGE) Take 1,000 mg 0 1,000 mg tablet by mouth twice daily with meals. Active nebivolol (BYSTOLIC) 5 mg Take 5 mg by 0 tablet mouth daily. Active nitroglycerin Take 1 [place] 0 (NITROLINGUAL) 400 by mouth mcg/spray translingual every 5 spray minutes as needed (for chest pain). Active omeprazole DR(+) Take 40 mg by 0 (PRILOSEC) 40 mg capsule mouth daily before breakfast. Active tamsulosin (FLOMAX) 0.4 Take 0.4 mg 0 mg capsule by mouth daily. Do not crush, chew or open capsules. Take 30 minutes following the same meal each day. Active vitamins, B complex tab Take 1 Tab by 0 mouth daily. Active aspirin 81 mg chewable Chew 81 mg by 0 tablet mouth daily. Take with food. Active finasteride (PROSCAR) 5 Take 5 mg by 0 mg tablet mouth daily. Active buPROPion XL (WELLBUTRIN Take 150 mg 0 XL) 150 mg tablet by mouth every morning. Do not crush or chew. Active Problems Problem Noted Date Weakness 02/17/2016 Social History Date Tobacco Use Types Packs/Day Years Used Never Smoker Smokeless Tobacco: Never Used Drinks/Week oz/Week Comments Alcohol Use No Sex Assigned at Date Recorded Not on file Industry Job Start Date Occupation Not on file Not on file Not on file Travel End Travel History Travel Start No recent travel history available. 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
--- OUTSIDE RECORDS SUMMARY | 2018-08-23 21:57 | XMS REPORT | Continuity of Care Document ---
Author Organization Unknown Address Unknown Allergies Active Description Code Type Severity Reaction Onset Reported/Identified Relationship to Patient Clinical Status Yes Sulfa (Sulfonamide Antibiotics) [id number] Drug Allergy Unknown N/A 07/24/2017 Medications There is no data. Problems Date Dx Coded Attending Type Code Diagnosis Diagnosed By 01/25/2010 Ot 250.00 01/25/2010 Ot 272.0 01/25/2010 Ot 401.9 01/25/2010 Ot 414.01 01/25/2010 Ot 530.81 01/25/2010 Ot 574.00 01/25/2010 Ot 724.00 01/25/2010 Ot V45.82 05/12/2015 Ot 722.52 05/12/2015 EMERY CHAND, LINA Garcia Ot 189.0 05/12/2015 LINA LAND MD Ot 189.0 05/18/2015 Ot 722.52 05/18/2015 LINA LAND MD Ot 189.0 05/18/2015 LINA LAND MD Ot 189.0 05/18/2015 JAMEEL BOWSER APRN Ot G47.33 OBSTRUCTIVE SLEEP APNEA (ADULT) (PEDIATR 05/26/2015 JAMEEL BOWSER APRN Ot G47.33 OBSTRUCTIVE SLEEP APNEA (ADULT) (PEDIATR 09/15/2015 ZHANG PHILLIPS MD Ot C64.1 MALIGNANT NEOPLASM OF RIGHT KIDNEY, EXCE 10/21/2015 ZHANG PHILLIPS MD Ot C64.1 MALIGNANT NEOPLASM OF RIGHT KIDNEY, EXCE 11/16/2015 BERTHA ESTEVES MD Ot E11.9 TYPE 2 DIABETES MELLITUS WITHOUT COMPLIC 11/16/2015 BERTHA ESTEVES MD Ot I10 ESSENTIAL (PRIMARY) HYPERTENSION 11/16/2015 BERTHA ESTEVES MD Ot R07.9 CHEST PAIN, UNSPECIFIED 11/16/2015 BERTHA ESTEVES MD Ot Z79.82 CARE HOME (CURRENT) USE OF ASPIRIN 11/16/2015 BERTHA ESTEVES MD Ot Z79.84 CARE HOME (CURRENT) USE OF ORAL HYPOGLYC 11/16/2015 LINN CHAND, BERTHA Parada Ot Z79.899 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 THERAPY 11/16/2015 LINN CHAND, BERTHA Parada Ot Z95.5 PRESENCE OF CORONARY ANGIOPLASTY IMPLANT 11/16/2015 Ot 722.52 LUMB/LUMBOSAC DISC DEGEN 11/16/2015 EMERY CHAND, LINA Garcia Ot 189.0 MALIG NEOPL KIDNEY 11/16/2015 LINA LAND MD Ot 189.0 MALIG NEOPL KIDNEY 11/16/2015 ZHANG PHILLIPS MD Ot D47.2 MONOCLONAL GAMMOPATHY 11/16/2015 ZHANG PHILLIPS MD Ot 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 11/16/2015 ZHANG PHILLIPS MD Ot E66.9 OBESITY, UNSPECIFIED 11/16/2015 ZHANG PHILLIPS MD Ot G47.33 OBSTRUCTIVE SLEEP APNEA (ADULT) (PEDIATR 11/16/2015 ZHANG PHILLIPS MD Ot I12.9 HYPERTENSIVE CHRONIC KIDNEY DISEASE W ST 11/16/2015 ZHANG PHILLIPS MD Ot N18.9 CHRONIC KIDNEY DISEASE, UNSPECIFIED 11/16/2015 ZHANG PHILLIPS MD Ot Z80.51 FAMILY HISTORY OF MALIGNANT NEOPLASM OF 11/16/2015 ZHNAG PHILLIPS MD Ot C64.1 MALIGNANT NEOPLASM OF RIGHT KIDNEY, EXCE 11/16/2015 Ot 722.52 LUMB/LUMBOSAC DISC DEGEN 11/16/2015 EMREY CHAND, LINA Garcia Ot 189.0 MALIG NEOPL KIDNEY 11/16/2015 LINA LAND MD Ot 189.0 MALIG NEOPL KIDNEY 11/16/2015 ZHANG PHILLIPS MD Ot D47.2 MONOCLONAL GAMMOPATHY 11/16/2015 ZHANG PHILLIPS MD Ot 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 11/16/2015 ZHANG PHILLIPS MD Ot E66.9 OBESITY, UNSPECIFIED 11/16/2015 ZHANG PHILLIPS MD Ot G47.33 OBSTRUCTIVE SLEEP APNEA (ADULT) (PEDIATR 11/16/2015 ZHANG PHILLIPS MD Ot I12.9 HYPERTENSIVE CHRONIC KIDNEY DISEASE W ST 11/16/2015 ZHANG PHILLIPS MD Ot N18.9 CHRONIC KIDNEY DISEASE, UNSPECIFIED 11/16/2015 ZHANG PHILLIPS MD Ot Z80.51 FAMILY HISTORY OF MALIGNANT NEOPLASM OF 11/16/2015 ZHANG PHILLIPS MD Ot C64.1 MALIGNANT NEOPLASM OF RIGHT KIDNEY, EXCE 11/17/2015 BERTHA ESTEVES MD, Ot E11.9 TYPE 2 DIABETES MELLITUS WITHOUT COMPLIC 11/17/2015 BERTHA ESTEVES MD, Ot I10 ESSENTIAL (PRIMARY) HYPERTENSION 11/17/2015 BERTHA ESTEVES MD, Ot R07.9 CHEST PAIN, UNSPECIFIED 11/17/2015 BERTHA ESTEVES MD, Ot Z79.82 CARE HOME (CURRENT) USE OF ASPIRIN 11/17/2015 BERTHA ESTEVES MD, Ot Z79.84 CARE HOME (CURRENT) USE OF ORAL HYPOGLYC 11/17/2015 BERTHA ESTEVES MD, Ot Z79.899 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 THERAPY 11/17/2015 BERTHA ESTEVES MD, Ot Z95.5 PRESENCE OF CORONARY ANGIOPLASTY IMPLANT 12/05/2015 ZHANG PHILLIPS MD, Ot D47.2 MONOCLONAL GAMMOPATHY 12/05/2015 ZHANG PHILLIPS MD, Ot 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 12/05/2015 ZHANG PHILLIPS MD, Ot E66.9 OBESITY, UNSPECIFIED 12/05/2015 ZHANG PHILLIPS MD, Ot G47.33 OBSTRUCTIVE SLEEP APNEA (ADULT) (PEDIATR 12/05/2015 ZHANG PHILLIPS MD Ot I12.9 HYPERTENSIVE CHRONIC KIDNEY DISEASE W ST 12/05/2015 ZHANG PHILLIPS MD Ot N18.9 CHRONIC KIDNEY DISEASE, UNSPECIFIED 12/05/2015 ZHANG PHILLIPS MD Ot R53.83 OTHER FATIGUE 12/05/2015 ZHANG PHILLIPS MD Ot Z80.51 FAMILY HISTORY OF MALIGNANT NEOPLASM OF 12/06/2015 ZHANG PHILLIPS MD, Ot D47.2 MONOCLONAL GAMMOPATHY 12/06/2015 ZHANG PHILLIPS MD, Ot 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 12/06/2015 ZHANG PHILLIPS MD, Ot E66.9 OBESITY, UNSPECIFIED 12/06/2015 ZHANG PHILLIPS MD Ot G47.33 OBSTRUCTIVE SLEEP APNEA (ADULT) (PEDIATR 12/06/2015 ZHANG PHILLIPS MD Ot I12.9 HYPERTENSIVE CHRONIC KIDNEY DISEASE W ST 12/06/2015 ZHANG PHILLIPS MD Ot N18.9 CHRONIC KIDNEY DISEASE, UNSPECIFIED 12/06/2015 ZHANG PHILLIPS MD Ot R53.83 OTHER FATIGUE 12/06/2015 ZHANG PHILLIPS MD Ot Z80.51 FAMILY HISTORY OF MALIGNANT NEOPLASM OF 12/11/2015 JACQUELINE MD, ZHANG K Ot D47.2 MONOCLONAL GAMMOPATHY 12/11/2015 ZHANG PHILLIPS MD Ot 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 12/11/2015 ZHANG PHILLIPS MD Ot E66.9 OBESITY, UNSPECIFIED 12/11/2015 ZHANG PHILLIPS MD Ot G47.33 OBSTRUCTIVE SLEEP APNEA (ADULT) (PEDIATR 12/11/2015 ZHANG PHILLIPS MD Ot I12.9 HYPERTENSIVE CHRONIC KIDNEY DISEASE W ST 12/11/2015 ZHANG PHILLIPS MD Ot N18.9 CHRONIC KIDNEY DISEASE, UNSPECIFIED 12/11/2015 ZHANG PHILLIPS MD Ot R53.83 OTHER FATIGUE 12/11/2015 ZHANG PHILLIPS MD Ot Z80.51 FAMILY HISTORY OF MALIGNANT NEOPLASM OF 01/30/2016 Ot 722.52 LUMB/LUMBOSAC DISC DEGEN 01/30/2016 LINA LAND MD Ot 189.0 MALIG NEOPL KIDNEY 01/30/2016 LINA LAND MD Ot 189.0 MALIG NEOPL KIDNEY 01/30/2016 ZHANG PHILLIPS MD Ot C64.1 MALIGNANT NEOPLASM OF RIGHT KIDNEY, EXCE 01/30/2016 ZHANG PHILLIPS MD Ot D47.2 MONOCLONAL GAMMOPATHY 01/30/2016 ZHANG PHILLIPS MD Ot 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 01/30/2016 ZHANG PHILLIPS MD Ot E66.9 OBESITY, UNSPECIFIED 01/30/2016 ZHANG PHILLIPS MD Ot G47.33 OBSTRUCTIVE SLEEP APNEA (ADULT) (PEDIATR 01/30/2016 ZHANG PHILLIPS MD Ot I12.9 HYPERTENSIVE CHRONIC KIDNEY DISEASE W ST 01/30/2016 ZHANG PHILLIPS MD Ot N18.9 CHRONIC KIDNEY DISEASE, UNSPECIFIED 01/30/2016 ZHANG PHILLIPS MD Ot Z80.51 FAMILY HISTORY OF MALIGNANT NEOPLASM OF 02/01/2016 Ot 722.52 LUMB/LUMBOSAC DISC DEGEN 02/01/2016 LINA LAND MD S Ot 189.0 MALIG NEOPL KIDNEY 02/01/2016 LINA LAND MD S Ot 189.0 MALIG NEOPL KIDNEY 02/01/2016 ZHANG PHILLIPS MD Ot C64.1 MALIGNANT NEOPLASM OF RIGHT KIDNEY, EXCE 02/01/2016 ZHANG PHILLIPS MD Ot D47.2 MONOCLONAL GAMMOPATHY 02/01/2016 ZHANG PHILLIPS MD Ot 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 02/01/2016 ZHANG PHILLIPS MD Ot E66.9 OBESITY, UNSPECIFIED 02/01/2016 ZHANG PHILLIPS MD Ot G47.33 OBSTRUCTIVE SLEEP APNEA (ADULT) (PEDIATR 02/01/2016 ZHANG PHILLIPS MD Ot I12.9 HYPERTENSIVE CHRONIC KIDNEY DISEASE W ST 02/01/2016 ZHANG PHILLIPS MD Ot N18.9 CHRONIC KIDNEY DISEASE, UNSPECIFIED 02/01/2016 ZHANG PHILLIPS MD Ot Z80.51 FAMILY HISTORY OF MALIGNANT NEOPLASM OF 02/02/2016 Ot 722.52 LUMB/LUMBOSAC DISC DEGEN 02/02/2016 EMERY HCAND, LINA S Ot 189.0 MALIG NEOPL KIDNEY 02/02/2016 LINA LAND MD S Ot 189.0 MALIG NEOPL KIDNEY 02/02/2016 ZHANG PHILLIPS MD Ot C64.1 MALIGNANT NEOPLASM OF RIGHT KIDNEY, EXCE 02/02/2016 ZHANG PHILLIPS MD Ot D47.2 MONOCLONAL GAMMOPATHY 02/02/2016 ZHANG PHILLIPS MD Ot 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 02/02/2016 ZHANG PHILLIPS MD Ot E66.9 OBESITY, UNSPECIFIED 02/02/2016 ZHANG PHILLIPS MD Ot G47.33 OBSTRUCTIVE SLEEP APNEA (ADULT) (PEDIATR 02/02/2016 ZHANG PHILLIPS MD Ot I12.9 HYPERTENSIVE CHRONIC KIDNEY DISEASE W ST 02/02/2016 ZHANG PHILLIPS MD Ot N18.9 CHRONIC KIDNEY DISEASE, UNSPECIFIED 02/02/2016 ZHANG PHILLIPS MD Ot Z80.51 FAMILY HISTORY OF MALIGNANT NEOPLASM OF 02/21/2016 Ot 722.52 LUMB/LUMBOSAC DISC DEGEN 02/21/2016 LINA LAND MD S Ot 189.0 MALIG NEOPL KIDNEY 02/21/2016 LINA LAND MD Ot 189.0 MALIG NEOPL KIDNEY 02/21/2016 ZHANG PHILLIPS MD Ot C64.1 MALIGNANT NEOPLASM OF RIGHT KIDNEY, EXCE 02/21/2016 ZHANG PHILLIPS MD Ot D47.2 MONOCLONAL GAMMOPATHY 02/21/2016 ZHANG PHILLIPS MD Ot 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 02/21/2016 ZHANG PHILLIPS MD Ot E66.9 OBESITY, UNSPECIFIED 02/21/2016 ZHANG PHILLIPS MD Ot G47.33 OBSTRUCTIVE SLEEP APNEA (ADULT) (PEDIATR 02/21/2016 ZHANG PHILLIPS MD Ot I12.9 HYPERTENSIVE CHRONIC KIDNEY DISEASE W ST 02/21/2016 ZHANG PHILLIPS MD Ot N18.9 CHRONIC KIDNEY DISEASE, UNSPECIFIED 02/21/2016 ZHANG PHILLIPS MD Ot Z80.51 FAMILY HISTORY OF MALIGNANT NEOPLASM OF 02/22/2016 Ot 722.52 LUMB/LUMBOSAC DISC DEGEN 02/22/2016 EMERY CHAND, LINA Garcia Ot 189.0 MALIG NEOPL KIDNEY 02/22/2016 LINA LAND MD Ot 189.0 MALIG NEOPL KIDNEY 02/22/2016 ZHANG PHILLIPS MD Ot C64.1 MALIGNANT NEOPLASM OF RIGHT KIDNEY, EXCE 02/22/2016 ZHANG PHILLIPS MD Ot D47.2 MONOCLONAL GAMMOPATHY 02/22/2016 ZHANG PHILLIPS MD Ot 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 02/22/2016 ZHANG PHILLIPS MD Ot E66.9 OBESITY, UNSPECIFIED 02/22/2016 ZHANG PHILLIPS MD Ot G47.33 OBSTRUCTIVE SLEEP APNEA (ADULT) (PEDIATR 02/22/2016 ZHANG PHILLIPS MD Ot I12.9 HYPERTENSIVE CHRONIC KIDNEY DISEASE W ST 02/22/2016 ZHANG PHILLIPS MD Ot N18.9 CHRONIC KIDNEY DISEASE, UNSPECIFIED 02/22/2016 ZHANG PHILLIPS MD Ot Z80.51 FAMILY HISTORY OF MALIGNANT NEOPLASM OF 02/23/2016 GONZALO CHAND, ERIK Deshpande Ot M48.06 SPINAL STENOSIS, LUMBAR REGION 02/24/2016 Ot 722.52 LUMB/LUMBOSAC DISC DEGEN 02/24/2016 LINA LAND MD Ot 189.0 MALIG NEOPL KIDNEY 02/24/2016 LINA LAND MD Ot 189.0 MALIG NEOPL KIDNEY 02/24/2016 ZHANG PHILLIPS MD Ot C64.1 MALIGNANT NEOPLASM OF RIGHT KIDNEY, EXCE 02/24/2016 ZHANG PHILLIPS MD Ot D47.2 MONOCLONAL GAMMOPATHY 02/24/2016 ZHANG PHILLIPS MD Ot 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 02/24/2016 ZHANG PHILLIPS MD Ot E66.9 OBESITY, UNSPECIFIED 02/24/2016 ZHAGN PHILLIPS MD Ot G47.33 OBSTRUCTIVE SLEEP APNEA (ADULT) (PEDIATR 02/24/2016 ZHANG PHILLIPS MD Ot I12.9 HYPERTENSIVE CHRONIC KIDNEY DISEASE W ST 02/24/2016 ZHANG PHILLIPS MD Ot N18.9 CHRONIC KIDNEY DISEASE, UNSPECIFIED 02/24/2016 JACQUELINE CHAND, ZHANG Parada Ot Z80.51 FAMILY HISTORY OF MALIGNANT NEOPLASM OF 02/24/2016 GONZALO CHAND, ERIK Deshpande Ot M48.06 SPINAL STENOSIS, LUMBAR REGION 03/10/2016 ERIK SÁNCHEZ MD, Ot M48.06 SPINAL STENOSIS, LUMBAR REGION 03/27/2016 JACQUELINE CHAND, ZHANG Parada Ot D47.2 MONOCLONAL GAMMOPATHY 03/27/2016 ZHANG PHILLIPS MD Ot 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 03/27/2016 JACQUELINE CHAND, ZHANG Parada Ot E66.9 OBESITY, UNSPECIFIED 03/27/2016 JACQUELINE CHAND, ZHANG Parada Ot G47.33 OBSTRUCTIVE SLEEP APNEA (ADULT) (PEDIATR 03/27/2016 ZHANG PHILLIPS MD Ot I12.9 HYPERTENSIVE CHRONIC KIDNEY DISEASE W ST 03/27/2016 JACQUELINE CHAND, ZHANG Parada Ot N18.9 CHRONIC KIDNEY DISEASE, UNSPECIFIED 03/27/2016 JACQUELINE CHAND, ZHANG Parada Ot Z80.51 FAMILY HISTORY OF MALIGNANT NEOPLASM OF 04/03/2016 GONZALO CHAND, ERIK Deshpande Ot M48.06 SPINAL STENOSIS, LUMBAR REGION 04/20/2016 ARACELI (BESSY), JOSE RAFAEL Parada Ot M48.06 SPINAL STENOSIS, LUMBAR REGION 04/20/2016 ARACELI (BESSY), JOSE RAFAEL Parada Ot M50.322 OTHER CERVICAL DISC DEGENERATION AT C5-C 04/20/2016 ARACELI (BESSY), JOSE RAFAEL K Ot M62.81 MUSCLE WEAKNESS (GENERALIZED) 04/20/2016 ARACELI (BESSY), JOSE RAFAEL Parada Ot M48.06 SPINAL STENOSIS, LUMBAR REGION 04/20/2016 ARACELI (BESSY), JOSE RAFAEL K Ot M50.322 OTHER CERVICAL DISC DEGENERATION AT C5-C 04/20/2016 ARACELI (BESSY), JOSE RAFAEL K Ot M62.81 MUSCLE WEAKNESS (GENERALIZED) 04/20/2016 JACQUELINE CHAND, ZHANG Parada Ot C64.1 MALIGNANT NEOPLASM OF RIGHT KIDNEY, EXCE 06/14/2016 ARACELI (BESSY), JOSE RAFAEL Parada Ot M48.06 SPINAL STENOSIS, LUMBAR REGION 06/14/2016 ARACELI (BESSY), JOSE RAFAEL Tal Ot M50.322 OTHER CERVICAL DISC DEGENERATION AT C5-C 06/14/2016 ARACELI (BESSY), JOSE RAFAEL Parada Ot M62.81 MUSCLE WEAKNESS (GENERALIZED) 06/25/2016 LINA LAND MD Ot C64.9 MALIGNANT NEOPLASM OF UNSP KIDNEY, EXCEP 06/25/2016 EMERY CHAND, LINA Garcia Ot N40.1 BENIGN PROSTATIC HYPERPLASIA WITH LOWER 11/07/2016 SWEANISHA DOANITHA Ot M47.812 SPONDYLOSIS W/O MYELOPATHY OR RADICULOPA 11/07/2016 PATY DONAITHA C Ot Z98.1 ARTHRODESIS STATUS 12/01/2016 SWEANEY DO, ANITHA C Ot M47.812 SPONDYLOSIS W/O MYELOPATHY OR RADICULOPA 12/01/2016 SWEANETed DOANITHA C Ot Z98.1 ARTHRODESIS STATUS 12/01/2016 PATY DO, ANITHA Pablo Ot M47.812 SPONDYLOSIS W/O MYELOPATHY OR RADICULOPA 12/01/2016 ANITHA NEWMAN DO C Ot Z98.1 ARTHRODESIS STATUS 07/17/2017 EMERY CHAND, LINA Garcia Ot 189.0 MALIG NEOPL KIDNEY 07/17/2017 LINA LAND MD Ot 189.0 MALIG NEOPL KIDNEY 07/17/2017 JACQUELINE CHAND, ZHANG Parada Ot C64.1 MALIGNANT NEOPLASM OF RIGHT KIDNEY, EXCE 07/17/2017 JACQUELINE CHAND, ZHANG Parada Ot D47.2 MONOCLONAL GAMMOPATHY 07/17/2017 JACQUELINE CHAND, ZHANG Parada Ot 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 07/17/2017 JACQUELINE CHAND, ZHANG Parada Ot E66.9 OBESITY, UNSPECIFIED 07/17/2017 JACQUELINE CHAND, ZHANG Parada Ot G47.33 OBSTRUCTIVE SLEEP APNEA (ADULT) (PEDIATR 07/17/2017 JACQUELINE CHAND, ZHANG Parada Ot I12.9 HYPERTENSIVE CHRONIC KIDNEY DISEASE W ST 07/17/2017 ZHANG PHILLIPS MD Ot N18.9 CHRONIC KIDNEY DISEASE, UNSPECIFIED 07/17/2017 JACQUELINE CHAND, ZHANG Parada Ot Z80.51 FAMILY HISTORY OF MALIGNANT NEOPLASM OF 07/17/2017 GONZALO CHAND, ERIK Deshpande Ot M48.06 SPINAL STENOSIS, LUMBAR REGION 07/17/2017 ARACELI (BESSY), JOSE RAFAEL Parada Ot M48.06 SPINAL STENOSIS, LUMBAR REGION 07/17/2017 ARACELI (BESSY), JOSE RAFAEL Parada Ot M50.322 OTHER CERVICAL DISC DEGENERATION AT C5-C 07/17/2017 ARACELI (BESSY), JOSE RAFAEL Parada Ot M62.81 MUSCLE WEAKNESS (GENERALIZED) 07/17/2017 EMERY CHAND, LINA Garcia Ot C64.9 MALIGNANT NEOPLASM OF UNSP KIDNEY, EXCEP 07/17/2017 EMERY CHAND, LINA Garcia Ot N40.1 BENIGN PROSTATIC HYPERPLASIA WITH LOWER 07/17/2017 ANITHA NEWMAN DO Ot M47.812 SPONDYLOSIS W/O MYELOPATHY OR RADICULOPA 07/17/2017 ANITHA NEWMAN DO Ot Z98.1 ARTHRODESIS STATUS 07/20/2017 EMERY CHAND, LINA Garcia Ot 189.0 MALIG NEOPL KIDNEY 07/20/2017 EMERY CHAND, LINA Garcia Ot 189.0 MALIG NEOPL KIDNEY 07/20/2017 JACQUELINE CHAND, ZHANG Parada Ot C64.1 MALIGNANT NEOPLASM OF RIGHT KIDNEY, EXCE 07/20/2017 JACQUELINE CHAND, ZHANG Parada Ot D47.2 MONOCLONAL GAMMOPATHY 07/20/2017 JACQUELINE CHAND, ZHANG Parada Ot 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 07/20/2017 JACQUELINE CHAND, ZHANG Parada Ot E66.9 OBESITY, UNSPECIFIED 07/20/2017 JACQUELINE CHAND, ZHANG Parada Ot G47.33 OBSTRUCTIVE SLEEP APNEA (ADULT) (PEDIATR 07/20/2017 JACQUELINE CHAND, ZHANG Parada Ot I12.9 HYPERTENSIVE CHRONIC KIDNEY DISEASE W ST 07/20/2017 JACQUELINE CHAND, ZHANG Parada Ot N18.9 CHRONIC KIDNEY DISEASE, UNSPECIFIED 07/20/2017 JACQUELINE CHAND, ZHANG Parada Ot Z80.51 FAMILY HISTORY OF MALIGNANT NEOPLASM OF 07/20/2017 GONZALO CHAND, ERIK Deshpande Ot M48.06 SPINAL STENOSIS, LUMBAR REGION 07/20/2017 ARACELI (BESSY), JOSE RAFAEL Parada Ot M48.06 SPINAL STENOSIS, LUMBAR REGION 07/20/2017 ARACELI (BESSY), JOSE RAFAEL Parada Ot M50.322 OTHER CERVICAL DISC DEGENERATION AT C5-C 07/20/2017 ARACELI (BESSY), JOSE RAFAEL Parada Ot M62.81 MUSCLE WEAKNESS (GENERALIZED) 07/20/2017 LINA LAND MD Ot C64.9 MALIGNANT NEOPLASM OF UNSP KIDNEY, EXCEP 07/20/2017 EMERY CHAND, LINA Garcia Ot N40.1 BENIGN PROSTATIC HYPERPLASIA WITH LOWER 07/20/2017 SWEANEY DO, ANITHA Pablo Ot M47.812 SPONDYLOSIS W/O MYELOPATHY OR RADICULOPA 07/20/2017 ANITHA NEWMAN DO Ot Z98.1 ARTHRODESIS STATUS 07/20/2017 EMERY CHAND, LINA Garcia Ot 189.0 MALIG NEOPL KIDNEY 07/20/2017 LINA LAND MD Ot 189.0 MALIG NEOPL KIDNEY 07/20/2017 ZHANG PHILLIPS MD Ot C64.1 MALIGNANT NEOPLASM OF RIGHT KIDNEY, EXCE 07/20/2017 ZHANG PHILLIPS MD Ot D47.2 MONOCLONAL GAMMOPATHY 07/20/2017 ZHANG PHILLIPS MD Ot 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 07/20/2017 ZHANG PHILLIPS MD Ot E66.9 OBESITY, UNSPECIFIED 07/20/2017 ZHANG PHILLIPS MD Ot G47.33 OBSTRUCTIVE SLEEP APNEA (ADULT) (PEDIATR 07/20/2017 ZHANG PHILLIPS MD Ot I12.9 HYPERTENSIVE CHRONIC KIDNEY DISEASE W ST 07/20/2017 ZHANG PHILLIPS MD Ot N18.9 CHRONIC KIDNEY DISEASE, UNSPECIFIED 07/20/2017 ZHANG PHILLIPS MD Ot Z80.51 FAMILY HISTORY OF MALIGNANT NEOPLASM OF 07/20/2017 GONZALO CHAND, ERIK Deshpande Ot M48.06 SPINAL STENOSIS, LUMBAR REGION 07/20/2017 ARACELI (BESSY), JOSE RAFAEL Parada Ot M48.06 SPINAL STENOSIS, LUMBAR REGION 07/20/2017 ARACELI (BESSY), JOSE RAFAEL Parada Ot M50.322 OTHER CERVICAL DISC DEGENERATION AT C5-C 07/20/2017 ARACELI (BESSY), JOSE RAFAEL Parada Ot M62.81 MUSCLE WEAKNESS (GENERALIZED) 07/20/2017 LINA LAND MD Ot C64.9 MALIGNANT NEOPLASM OF UNSP KIDNEY, EXCEP 07/20/2017 LINA LAND MD Ot N40.1 BENIGN PROSTATIC HYPERPLASIA WITH LOWER 07/20/2017 SWEANEY DO, ANITHA Pablo Ot M47.812 SPONDYLOSIS W/O MYELOPATHY OR RADICULOPA 07/20/2017 ANITHA NEWMAN DO Ot Z98.1 ARTHRODESIS STATUS 07/24/2017 ZHANG PHILLIPS MD Ot D47.2 MONOCLONAL GAMMOPATHY 07/24/2017 ZHANG PHILLIPS MD Ot 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 07/24/2017 ZHANG PHILLIPS MD Ot E66.9 OBESITY, UNSPECIFIED 07/24/2017 ZHANG PHILLIPS MD Ot G47.33 OBSTRUCTIVE SLEEP APNEA (ADULT) (PEDIATR 07/24/2017 ZHANG PHILLIPS MD Ot I12.9 HYPERTENSIVE CHRONIC KIDNEY DISEASE W ST 07/24/2017 ZHANG PHILLIPS MD Ot N18.9 CHRONIC KIDNEY DISEASE, UNSPECIFIED 07/24/2017 ZHANG PHILLIPS MD Ot Z80.51 FAMILY HISTORY OF MALIGNANT NEOPLASM OF 07/25/2017 COY DO, ALONDRA Balaji Ot K40.90 UNIL INGUINAL HERNIA, W/O OBST OR GANGR, 07/25/2017 COY DO, ALONDRA B Ot K76.0 FATTY (CHANGE OF) LIVER, NOT ELSEWHERE C 07/25/2017 COY DO, ALONDRA B Ot Z85.528 PERSONAL HISTORY OF OTHER MALIGNANT NEOP 07/25/2017 COY DO, ALONDRA B Ot Z90.5 ACQUIRED ABSENCE OF KIDNEY 08/14/2017 COY DO, ALONDRA B Ot K40.90 UNIL INGUINAL HERNIA, W/O OBST OR GANGR, 08/14/2017 COY DO, ALONDRA B Ot K76.0 FATTY (CHANGE OF) LIVER, NOT ELSEWHERE C 08/14/2017 COY DO, ALONDRA B Ot Z85.528 PERSONAL HISTORY OF OTHER MALIGNANT NEOP 08/14/2017 COY DO, ALONDRA B Ot Z90.5 ACQUIRED ABSENCE OF KIDNEY 09/27/2017 LINA LAND MD Ot C64.9 MALIGNANT NEOPLASM OF UNSP KIDNEY, EXCEP 09/27/2017 LINA LAND MD Ot N40.1 BENIGN PROSTATIC HYPERPLASIA WITH LOWER 02/01/2018 LINA LAND MD Ot 189.0 MALIG NEOPL KIDNEY 02/01/2018 ZHANG PHILLIPS MD Ot C64.1 MALIGNANT NEOPLASM OF RIGHT KIDNEY, EXCE 02/01/2018 ZHANG PHILLIPS MD Ot D47.2 MONOCLONAL GAMMOPATHY 02/01/2018 ZHANG PHILLIPS MD Ot 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 02/01/2018 ZHANG PHILLIPS MD Ot E66.9 OBESITY, UNSPECIFIED 02/01/2018 ZHANG PHILLIPS MD Ot G47.33 OBSTRUCTIVE SLEEP APNEA (ADULT) (PEDIATR 02/01/2018 ZHANG PHILLIPS MD Ot I12.9 HYPERTENSIVE CHRONIC KIDNEY DISEASE W ST 02/01/2018 JACQUELINE CHAND, ZHANG Parada Ot N18.9 CHRONIC KIDNEY DISEASE, UNSPECIFIED 02/01/2018 JACQUELINE CHAND, ZHANG Parada Ot Z80.51 FAMILY HISTORY OF MALIGNANT NEOPLASM OF 02/01/2018 GONZALO CHAND, ERIK Deshpande Ot M48.06 SPINAL STENOSIS, LUMBAR REGION 02/01/2018 ARACELI (BESSY), JOSE RAFAEL Parada Ot M48.06 SPINAL STENOSIS, LUMBAR REGION 02/01/2018 ARACELI (BESSY), JOSE RAFAEL Parada Ot M50.322 OTHER CERVICAL DISC DEGENERATION AT C5-C 02/01/2018 ARACELI (BESSY), JOSE RAFAEL Parada Ot M62.81 MUSCLE WEAKNESS (GENERALIZED) 02/01/2018 LINA LAND MD Ot C64.9 MALIGNANT NEOPLASM OF UNSP KIDNEY, EXCEP 02/01/2018 LINA LAND MD Ot N40.1 BENIGN PROSTATIC HYPERPLASIA WITH LOWER 02/01/2018 ANITHA NEWMAN DO Ot M47.812 SPONDYLOSIS W/O MYELOPATHY OR RADICULOPA 02/01/2018 ANITHA NEWMAN DO Ot Z98.1 ARTHRODESIS STATUS 02/01/2018 ALONDRA CHRISTENSEN DO Ot K40.90 UNIL INGUINAL HERNIA, W/O OBST OR GANGR, 02/01/2018 ALONDRA CHRISTENSEN DO Ot K76.0 FATTY (CHANGE OF) LIVER, NOT ELSEWHERE C 02/01/2018 ALONDRA CHRISTENSEN DO Ot Z85.528 PERSONAL HISTORY OF OTHER MALIGNANT NEOP 02/01/2018 ALONDRA CHRISTENSEN DO Ot Z90.5 ACQUIRED ABSENCE OF KIDNEY 02/01/2018 LINA LAND MD Ot C64.9 MALIGNANT NEOPLASM OF UNSP KIDNEY, EXCEP 02/01/2018 LINA LAND MD Ot N40.1 BENIGN PROSTATIC HYPERPLASIA WITH LOWER 02/04/2018 ORENDER DOCATERINA Ot J34.89 OTHER SPECIFIED DISORDERS OF NOSE AND NA 02/04/2018 ZACHNDCATERINA BECK DO Ot R41.82 ALTERED MENTAL STATUS, UNSPECIFIED 02/04/2018 ZACHNDER CATERINA WOODRUFF Ot Z85.528 PERSONAL HISTORY OF OTHER MALIGNANT NEOP 02/22/2018 CATERINA GRANT DO Ot J34.89 OTHER SPECIFIED DISORDERS OF NOSE AND NA 02/22/2018 CATERINA GRANT DO S Ot R41.82 ALTERED MENTAL STATUS, UNSPECIFIED 02/22/2018 CATERINA GRANT DO Ot Z85.528 PERSONAL HISTORY OF OTHER MALIGNANT NEOP 05/16/2018 VINITA SIDDIQI MD, Ot Z01.818 ENCOUNTER FOR OTHER PREPROCEDURAL EXAMIN 05/16/2018 VINITA SIDDIQI MD, Ot Z01.818 ENCOUNTER FOR OTHER PREPROCEDURAL EXAMIN 05/22/2018 VINITA SIDDIQI MD, Ot Z01.818 ENCOUNTER FOR OTHER PREPROCEDURAL EXAMIN 05/22/2018 VINITA SIDDIQI MD, Ot D12.4 BENIGN NEOPLASM OF DESCENDING COLON 05/22/2018 VINITA SIDDIQI MD, Ot E11.9 TYPE 2 DIABETES MELLITUS WITHOUT COMPLIC 05/22/2018 VINITA SIDDIQI MD, Ot E78.00 PURE HYPERCHOLESTEROLEMIA, UNSPECIFIED 05/22/2018 VINITA SIDDIQI MD, Ot F41.9 ANXIETY DISORDER, UNSPECIFIED 05/22/2018 VINITA SIDDIQI MD Ot I10 ESSENTIAL (PRIMARY) HYPERTENSION 05/22/2018 VINITA SIDDIQI MD, Ot I25.10 ATHSCL HEART DISEASE OF [place] CORONARY 05/22/2018 VINITA SIDDIQI MD, Ot K21.9 GASTRO-ESOPHAGEAL REFLUX DISEASE WITHOUT 05/22/2018 VINITA SIDDIQI MD, Ot K64.0 FIRST DEGREE HEMORRHOIDS 05/22/2018 VINITA SIDDIQI MD, Ot N40.0 BENIGN PROSTATIC HYPERPLASIA WITHOUT LOW 05/22/2018 VINITA SIDDIQI MD, Ot R53.82 CHRONIC FATIGUE, UNSPECIFIED 05/22/2018 VINITA SIDDIQI MD, Ot Z12.11 ENCOUNTER FOR SCREENING FOR MALIGNANT NE 05/22/2018 VINITA SIDDIQI MD, Ot Z79.82 REHABILITATION SERVICES COUNSELOR (CURRENT) USE OF ASPIRIN 05/22/2018 VINITA SIDDIQI MD, Ot Z79.84 REHABILITATION SERVICES COUNSELOR (CURRENT) USE OF ORAL HYPOGLYC 05/22/2018 VINITA SIDDIQI MD, Ot Z79.899 OTHER CARE HOME (CURRENT) DRUG THERAPY 05/24/2018 VINITA SIDDIQI MD, Ot D12.4 BENIGN NEOPLASM OF DESCENDING COLON 05/24/2018 KIDO MD, TAKAAKI Ot E11.9 TYPE 2 DIABETES MELLITUS WITHOUT COMPLIC 05/24/2018 VINITA SIDDIQI MD Ot E78.00 PURE HYPERCHOLESTEROLEMIA, UNSPECIFIED 05/24/2018 VINITA SIDDIQI MD Ot F41.9 ANXIETY DISORDER, UNSPECIFIED 05/24/2018 VINITA SIDDIQI MD Ot I10 ESSENTIAL (PRIMARY) HYPERTENSION 05/24/2018 VINIAT SIDDIQI MD Ot I25.10 ATHSCL HEART DISEASE OF [place] CORONARY 05/24/2018 IVNITA SIDDIQI MD Ot K21.9 GASTRO-ESOPHAGEAL REFLUX DISEASE WITHOUT 05/24/2018 VINITA SIDDIQI MD Ot K64.0 FIRST DEGREE HEMORRHOIDS 05/24/2018 VINITA SIDDIQI MD, Ot N40.0 BENIGN PROSTATIC HYPERPLASIA WITHOUT LOW 05/24/2018 VINITA SIDDIQI MD, Ot R53.82 CHRONIC FATIGUE, UNSPECIFIED 05/24/2018 VINITA SIDDIQI MD Ot Z12.11 ENCOUNTER FOR SCREENING FOR MALIGNANT NE 05/24/2018 VINITA SIDDIQI MD Ot Z79.82 CARE HOME (CURRENT) USE OF ASPIRIN 05/24/2018 VINITA SIDDIQI MD Ot Z79.84 REHABILITATION SERVICES COUNSELOR (CURRENT) USE OF ORAL HYPOGLYC 05/24/2018 VINITA SIDDIQI MD Ot Z79.899 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 THERAPY 05/24/2018 VINITA SIDDIQI MD Ot D12.4 BENIGN NEOPLASM OF DESCENDING COLON 05/24/2018 VINITA SIDDIQI MD Ot E11.9 TYPE 2 DIABETES MELLITUS WITHOUT COMPLIC 05/24/2018 VINITA SIDDIQI MD Ot E78.00 PURE HYPERCHOLESTEROLEMIA, UNSPECIFIED 05/24/2018 VINITA SIDDIQI MD Ot F41.9 ANXIETY DISORDER, UNSPECIFIED 05/24/2018 VINITA SIDDIQI MD Ot I10 ESSENTIAL (PRIMARY) HYPERTENSION 05/24/2018 VINITA SIDDIQI MD Ot I25.10 ATHSCL HEART DISEASE OF [place] CORONARY 05/24/2018 VINITA SIDDIQI MD Ot K21.9 GASTRO-ESOPHAGEAL REFLUX DISEASE WITHOUT 05/24/2018 VINITA SIDDIQI MD Ot K64.0 FIRST DEGREE HEMORRHOIDS 05/24/2018 VINITA SIDDIQI MD Ot N40.0 BENIGN PROSTATIC HYPERPLASIA WITHOUT LOW 05/24/2018 VINITA SIDDIQI MD Ot R53.82 CHRONIC FATIGUE, UNSPECIFIED 05/24/2018 VINITA SIDDIQI MD, Ot Z12.11 ENCOUNTER FOR SCREENING FOR MALIGNANT NE 05/24/2018 VINITA SIDDIQI MD, Ot Z79.82 CARE HOME (CURRENT) USE OF ASPIRIN 05/24/2018 VINITA SIDDIQI MD, Ot Z79.84 REHABILITATION SERVICES COUNSELOR (CURRENT) USE OF ORAL HYPOGLYC 05/24/2018 VINITA SIDDIQI MD, Ot Z79.899 OTHER CARE HOME (CURRENT) DRUG THERAPY 05/27/2018 VINITA SIDDIQI MD, Ot D12.4 BENIGN NEOPLASM OF DESCENDING COLON 05/27/2018 VINITA SIDDIQI MD, Ot E11.9 TYPE 2 DIABETES MELLITUS WITHOUT COMPLIC 05/27/2018 VINITA SIDDIQI MD, Ot E78.00 PURE HYPERCHOLESTEROLEMIA, UNSPECIFIED 05/27/2018 VINITA SIDDIQI MD, Ot F41.9 ANXIETY DISORDER, UNSPECIFIED 05/27/2018 VINITA SIDDIQI MD Ot I10 ESSENTIAL (PRIMARY) HYPERTENSION 05/27/2018 VINITA SIDDIQI MD, Ot I25.10 ATHSCL HEART DISEASE OF [place] CORONARY 05/27/2018 VINITA SIDDIQI MD, Ot K21.9 GASTRO-ESOPHAGEAL REFLUX DISEASE WITHOUT 05/27/2018 VINITA SIDDIQI MD, Ot K64.0 FIRST DEGREE HEMORRHOIDS 05/27/2018 VINITA SIDDIQI MD, Ot N40.0 BENIGN PROSTATIC HYPERPLASIA WITHOUT LOW 05/27/2018 VINITA SIDDIQI MD, Ot R53.82 CHRONIC FATIGUE, UNSPECIFIED 05/27/2018 VINITA SIDDIQI MD, Ot Z12.11 ENCOUNTER FOR SCREENING FOR MALIGNANT NE 05/27/2018 VINITA SIDDIQI MD, Ot Z79.82 CARE HOME (CURRENT) USE OF ASPIRIN 05/27/2018 VINITA SIDDIQI MD, Ot Z79.84 REHABILITATION SERVICES COUNSELOR (CURRENT) USE OF ORAL HYPOGLYC 05/27/2018 VINITA SIDDIQI MD, Ot Z79.899 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 THERAPY Procedures There is no data. Results Test Result Range Complete blood count (CBC) with automated white blood cell (WBC) differential - 11/16/15 14:18 Blood leukocytes automated count (number/volume) 8.5 10*3/uL 4.3-11.0 Blood erythrocytes automated count (number/volume) 4.62 10*6/uL 4.35-5.85 Venous blood hemoglobin measurement (mass/volume) 14.6 g/dL 13.3-17.7 Blood hematocrit (volume fraction) 42 % 40-54 Automated erythrocyte mean corpuscular volume 92 [foz_us] 80-99 Automated erythrocyte mean corpuscular hemoglobin (mass per erythrocyte) 32 pg 25-34 Automated erythrocyte mean corpuscular hemoglobin concentration measurement (mass/volume) 35 g/dL 32-36 Automated erythrocyte distribution width ratio 12.8 % 10.0- 14.5 Automated blood platelet count (count/volume) 151 10*3/uL 130-400 Automated blood platelet mean volume measurement 10.9 [foz_us] 7.4-10.4 Automated blood neutrophils/100 leukocytes 73 % 42-75 Automated blood lymphocytes/100 leukocytes 15 % 12-44 Blood monocytes/100 leukocytes 10 % 0-12 Automated blood eosinophils/100 leukocytes 1 % 0-10 Automated blood basophils/100 leukocytes 1 % 0-10 Blood neutrophils automated count (number/volume) 6.2 10*3 1.8-7.8 Blood lymphocytes automated count (number/volume) 1.3 10*3 1.0-4.0 Blood monocytes automated count (number/volume) 0.9 10*3 0.0- 1.0 Automated eosinophil count 0.1 10*3/uL 0.0-0.3 Automated blood basophil count (count/volume) 0.0 10*3/uL 0.0-0.1 Comprehensive metabolic panel - 11/16/15 14:18 Serum or plasma sodium measurement (moles/volume) 136 mmol/L 135-145 Serum or plasma potassium measurement (moles/volume) 4.2 mmol/L 3.6-5.0 Serum or plasma chloride measurement (moles/volume) 102 mmol/L 98-107 Carbon dioxide 19 mmol/L 21-32 Serum or plasma anion gap determination (moles/volume) 15 mmol/L 5-14 Serum or plasma urea nitrogen measurement (mass/volume) 27 mg/dL 7-18 Serum or plasma creatinine measurement (mass/volume) 1.63 mg/dL 0.60-1.30 Serum or plasma urea nitrogen/creatinine mass ratio 17 NRG Serum or plasma creatinine measurement with calculation of estimated glomerular filtration rate 42 NRG Serum or plasma glucose measurement (mass/volume) 168 mg/dL 70-105 Serum or plasma calcium measurement (mass/volume) 9.5 mg/dL 8.5-10.1 Serum or plasma total bilirubin measurement (mass/volume) 0.6 mg/dL 0.1-1.0 Serum or plasma alkaline phosphatase measurement (enzymatic activity/volume) 71 U/L 40-136 Serum or plasma aspartate aminotransferase measurement (enzymatic activity/volume) 36 U/L 5-34 Serum or plasma alanine aminotransferase measurement (enzymatic activity/volume) 56 U/L 0-55 Serum or plasma protein measurement (mass/volume) 6.5 g/dL 6.4-8.2 Serum or plasma albumin measurement (mass/volume) 4.1 g/dL 3.2-4.5 Serum or plasma troponin i.cardiac measurement (mass/volume) - 11/16/15 14:18 Serum or plasma troponin i.cardiac measurement (mass/volume) < ng/mL <0.30 [id number] - 07/24/17 09:29 Serum or plasma urea nitrogen measurement (mass/volume) 16 mg/dL 7-18 Serum or plasma creatinine measurement (mass/volume) 1.29 mg/dL 0.60-1.30 Serum or plasma urea nitrogen/creatinine mass ratio 12 NRG Serum or plasma creatinine measurement with calculation of estimated glomerular filtration rate 54 NRG Capillary blood glucose measurement by glucometer (mass/volume) - 05/22/18 09:43 Capillary blood glucose measurement by glucometer (mass/volume) 253 mg/dL 70-110 Complete blood count (CBC) with automated white blood cell (WBC) differential - 08/23/18 18:58 Blood leukocytes automated count (number/volume) 6.5 10*3/uL 4.3-11.0 Blood erythrocytes automated count (number/volume) 4.79 10*6/uL 4.35-5.85 Venous blood hemoglobin measurement (mass/volume) 14.5 g/dL 13.3-17.7 Blood hematocrit (volume fraction) 43 % 40-54 Automated erythrocyte mean corpuscular volume 89 [foz_us] 80-99 Automated erythrocyte mean corpuscular hemoglobin (mass per erythrocyte) 30 pg 25-34 Automated erythrocyte mean corpuscular hemoglobin concentration measurement (mass/volume) 34 g/dL 32-36 Automated erythrocyte distribution width ratio 13.2 % 10.0- 14.5 Automated blood platelet count (count/volume) 168 10*3/uL 130-400 Automated blood platelet mean volume measurement 10.4 [foz_us] 7.4-10.4 Automated blood neutrophils/100 leukocytes 71 % 42-75 Automated blood lymphocytes/100 leukocytes 17 % 12-44 Blood monocytes/100 leukocytes 10 % 0-12 Automated blood eosinophils/100 leukocytes 2 % 0-10 Automated blood basophils/100 leukocytes 0 % 0-10 Blood neutrophils automated count (number/volume) 4.6 10*3 1.8-7.8 Blood lymphocytes automated count (number/volume) 1.1 10*3 1.0-4.0 Blood monocytes automated count (number/volume) 0.6 10*3 0.0- 1.0 Automated eosinophil count 0.1 10*3/uL 0.0-0.3 Automated blood basophil count (count/volume) 0.0 10*3/uL 0.0-0.1 PT panel in platelet poor plasma by coagulation assay - 08/23/18 18:58 Prothrombin time (PT) in platelet poor plasma by coagulation assay 12.7 s 12.2-14.7 INR in platelet poor plasma or blood by coagulation assay 0.9 0.8-1.4 Activated partial thromboplastin time (aPTT) in platelet poor plasma bycoagulation assay - 08/23/18 18:58 Activated partial thromboplastin time (aPTT) in platelet poor plasma bycoagulation assay 27 s 24-35 Comprehensive metabolic panel - 08/23/18 18:58 Serum or plasma sodium measurement (moles/volume) 136 mmol/L 135-145 Serum or plasma potassium measurement (moles/volume) 3.7 mmol/L 3.6-5.0 Serum or plasma chloride measurement (moles/volume) 99 mmol/L 98-107 Carbon dioxide 27 mmol/L 21-32 Serum or plasma anion gap determination (moles/volume) 10 mmol/L 5-14 Serum or plasma urea nitrogen measurement (mass/volume) 15 mg/dL 7-18 Serum or plasma creatinine measurement (mass/volume) 1.38 mg/dL 0.60-1.30 Serum or plasma urea nitrogen/creatinine mass ratio 11 NRG Serum or plasma creatinine measurement with calculation of estimated glomerular filtration rate 50 NRG Serum or plasma glucose measurement (mass/volume) 113 mg/dL 70-105 Serum or plasma calcium measurement (mass/volume) 9.5 mg/dL 8.5-10.1 Serum or plasma total bilirubin measurement (mass/volume) 0.4 mg/dL 0.1-1.0 Serum or plasma alkaline phosphatase measurement (enzymatic activity/volume) 66 U/L 40-136 Serum or plasma aspartate aminotransferase measurement (enzymatic activity/volume) 39 U/L 5-34 Serum or plasma alanine aminotransferase measurement (enzymatic activity/volume) 71 U/L 0-55 Serum or plasma protein measurement (mass/volume) 7.1 g/dL 6.4-8.2 Serum or plasma albumin measurement (mass/volume) 4.3 g/dL 3.2-4.5 CALCIUM CORRECTED 9.3 mg/dL 8.5-10.1 Magnesium - 08/23/18 18:58 Magnesium 1.4 mg/dL 1.8-2.4 Serum or plasma troponin i.cardiac measurement (mass/volume) - 08/23/18 18:58 Serum or plasma troponin i.cardiac measurement (mass/volume) < ng/mL <0.028 Myoglobin, serum - 08/23/18 18:58 Myoglobin, serum 113.0 ng/mL 10.0-92.0 Serum or plasma lithium measurement (moles/volume) - 08/23/18 18:58 BNP PT 56.5 pg/mL <100.0 Serum or plasma troponin i.cardiac measurement (mass/volume) - 08/23/18 21:00 Serum or plasma troponin i.cardiac measurement (mass/volume) < ng/mL <0.028 Encounters ACCT No. Visit Date/Time Discharge Status Pt. Type Provider Facility Loc./Unit Complaint 09/201608/15/2018 16:38:15 08/15/2018 23:59:59 CLS Outpatient Caterina Grant [id number] 05/22/2018 09:17:00 05/22/2018 12:03:00 DIS Outpatient VINITA SIDDIQI MD [facility] ENDO SCREENING [id number] 05/16/2018 15:00:00 05/16/2018 16:00:00 DIS Outpatient VINITA SIDDIQI MD [facility] PREOP COLONOSCOPY [id number] 02/01/2018 15:21:00 02/01/2018 23:59:59 CLS Outpatient CATERINA GRANT DO [facility] RAD MENTAL STATUS CHANGE,HX OF RENAL CANCER [id number] 08/21/2017 16:46:00 08/21/2017 23:59:59 CLS Outpatient LINA LAND MD [facility] RAD BENIGN PROSTATE HYPERTROPHY WITH OBSTRUCTION [id number] 07/24/2017 09:21:00 07/24/2017 23:59:59 CLS Outpatient ALONDRA CHRISTENSEN DO Bal[facility] RAD GROIN PAIN, RIGHT [id number] 11/03/2016 13:34:00 11/03/2016 23:59:59 CLS Outpatient PATY WOODRUFF ANITHA C [facility] RAD M47.12 [id number] 06/12/2016 11:17:00 06/12/2016 23:59:59 CLS Outpatient LINA LAND MD [facility] RAD N40.1, C64.9 [id number] 04/19/2016 07:39:00 04/19/2016 23:59:59 CLS Outpatient ARACELI (BESSY)JOSE RAFAEL [facility] RAD M48.06 [id number] 02/22/2016 10:03:00 02/22/2016 23:59:59 CLS Outpatient ERIK SÁNCHEZ MD [facility] RAD WEAKNESS [id number] 12/06/2015 00:10:00 12/06/2015 23:59:59 CLS Preadmit ZHANG PHILLIPS MD [facility] ONC [id number] 09/20/2015 16:59:00 12/05/2015 00:01:00 DIS Outpatient ZHANG PHILLIPS MD [facility] ONC [id number] 11/16/2015 14:13:00 11/16/2015 16:40:00 DIS Emergency BERTHA ESTEVES MD [facility] ER FATIGUE CHEST TIGHTNESS [id number] 09/13/2015 08:52:00 09/13/2015 23:59:59 CLS Outpatient ZHANG PHILLIPS MD [facility] RAD RENAL CELL CANCER [id number] 05/17/2015 20:59:00 05/18/2015 06:05:00 DIS Outpatient JAMEEL BOWSER APRN [facility] SLEEP ABNORMAL LIMB MOVEMENT, DAYTIME SLEEPINESS [id number] 06/11/2013 09:29:00 06/11/2013 23:59:59 CLS Outpatient LINA LAND MD [facility] RAD KIDNEY [place] [id number] 06/14/2012 12:08:00 06/14/2012 23:59:59 CLS Outpatient LINA LAND MD [facility] 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
--- OUTSIDE RECORDS SUMMARY | 2018-08-23 22:46 | XMS REPORT | Clinical Summary ---
Author Author [facility] Organization [facility] Address Unknown Phone Unavailable Care Team Providers Care Senior Python Developer Name Role Phone PCP Unavailable Source Comments Some departments are not documenting in the electronic medical record. If you d o not see the information that you expected, contact Release of Information in [facility] [employer] Information Management department at [phone] for further assistan ce in locating additional records.[facility] Allergies Comments Active Allergy Reactions Severity Noted Date Mona-3 Acid Ethyl Esters STOMACH UPSET Low 02/17/2016 [...] tablet mouth daily. Active nitroglycerin Take 1 [place] 0 (NITROLINGUAL) 400 by mouth mcg/spray translingual [...] Comments Vital Sign 157/82 02/17/2016 9:52 AM [facility] Blood Pressure 82 02/17/2016 9:52 AM [facility] Pulse - - Temperature - - Respiratory Rate - - Oxygen Saturation - - Inhaled Oxygen Concentration 95.6 kg (210 lb 12.2 oz) 02/17/2016 9:52 AM [facility] Weight 177.8 cm (5' 10") 02/17/2016 9:52 AM [facility] Height 30.24 02/17/2016 9:52 AM [facility] Body Mass Index Plan of Treatment Health Maintenance Due Date Last Done Comments PHYSICAL (COMPREHENSIVE) 1947 EXAM DTAP/TDAP VACCINES (1 - 1960 Tdap) SHINGLES RECOMBINANT 1992 VACCINE (1 of 2) PNEUMONIA (PCV13/PPSV23) 04/15/2007 VACCINES (1 of 2 - PCV13) INFLUENZA VACCINE 11/05/2018 Results Not on filefrom Last 3 Months
--- OUTSIDE RECORDS SUMMARY | 2018-08-23 22:47 | XMS REPORT | Continuity of Care Document ---
Author Organization Unknown Address Unknown Allergies Active Description Code Type Severity Reaction Onset Reported/Identified Relationship to Patient Clinical Status Yes Sulfa (Sulfonamide Antibiotics) [id number] Drug Allergy Unknown N/A 07/24/2017 Medications There [...] UNSPECIFIED 11/16/2015 BERTHA ESTEVES MD Ot Z79.82 FPC (CURRENT) USE OF ASPIRIN 11/16/2015 BERTHA ESTEVES MD Ot Z79.84 FPC (CURRENT) USE OF ORAL HYPOGLYC 11/16/2015 LINN CHAND, BERTHA Parada Ot Z79.899 OTHER PIPE INSPECTOR (CURRENT) DRUG THERAPY 11/16/2015 LINN CHAND, BERTHA Parada Ot Z95.5 PRESENCE OF CORONARY ANGIOPLASTY IMPLANT 11/16/2015 Ot 722.52 LUMB/LUMBOSAC DISC DEGEN 11/16/2015 EMERY CHAND, LINA Garcia Ot 189.0 MALIG NEOPL KIDNEY 11/16/2015 LINA LAND MD Ot 189.0 MALIG NEOPL KIDNEY 11/16/2015 ZHANG PHILLIPS MD Ot D47.2 MONOCLONAL GAMMOPATHY 11/16/2015 ZHANG PHILLIPS MD Ot 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 11/16/2015 ZHANG PHILLIPS MD Ot E66.9 OBESITY, [...] 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 11/16/2015 ZHANG PHILLIPS MD Ot E66.9 OBESITY, [...] UNSPECIFIED 11/17/2015 BERTHA ESTEVES MD, Ot Z79.82 FPC (CURRENT) USE OF ASPIRIN 11/17/2015 BERTHA ESTEVES MD, Ot Z79.84 FPC (CURRENT) USE OF ORAL HYPOGLYC 11/17/2015 BERTHA ESTEVES MD, Ot Z79.899 OTHER PIPE INSPECTOR (CURRENT) DRUG THERAPY 11/17/2015 BERTHA ESTEVES MD, Ot Z95.5 PRESENCE OF CORONARY ANGIOPLASTY IMPLANT 12/05/2015 ZHANG PHILLIPS MD, Ot D47.2 MONOCLONAL GAMMOPATHY 12/05/2015 ZHANG PHILLIPS MD, Ot 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 12/05/2015 ZHANG PHILLIPS MD, Ot E66.9 OBESITY, [...] 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 12/06/2015 ZHANG PHILLIPS MD, Ot E66.9 OBESITY, [...] 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 12/11/2015 ZHANG PHILLIPS MD Ot E66.9 OBESITY, [...] 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 01/30/2016 ZHANG PHILLIPS MD Ot E66.9 OBESITY, [...] 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 02/01/2016 ZHANG PHILLIPS MD Ot E66.9 OBESITY, UNSPECIFIED 02/01/2016 ZHANG PHILLIPS MD Ot G47.33 OBSTRUCTIVE SLEEP APNEA (ADULT) (PEDIATR 02/01/2016 ZHANG PHILLIPS MD Ot I12.9 HYPERTENSIVE CHRONIC KIDNEY DISEASE W ST 02/01/2016 ZHANG PHILLIPS MD Ot N18.9 CHRONIC KIDNEY DISEASE, UNSPECIFIED 02/01/2016 ZHANG PHILLIPS MD Ot Z80.51 FAMILY HISTORY OF MALIGNANT NEOPLASM OF 02/02/2016 Ot 722.52 LUMB/LUMBOSAC DISC DEGEN 02/02/2016 EMERY CHAND, LINA S Ot 189.0 MALIG NEOPL KIDNEY 02/02/2016 LINA LAND MD S Ot 189.0 MALIG NEOPL KIDNEY 02/02/2016 ZHANG PHILLIPS MD Ot C64.1 MALIGNANT NEOPLASM OF RIGHT KIDNEY, EXCE 02/02/2016 ZHANG PHILLIPS MD Ot D47.2 MONOCLONAL GAMMOPATHY 02/02/2016 ZHANG PHILLIPS MD Ot 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 02/02/2016 ZHANG PHILLIPS MD Ot E66.9 OBESITY, [...] 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 02/21/2016 ZHANG PHILLIPS MD Ot E66.9 OBESITY, [...] 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 02/22/2016 ZHANG PHILLIPS MD Ot E66.9 OBESITY, [...] 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 02/24/2016 ZHANG PHILLIPS MD Ot E66.9 OBESITY, UNSPECIFIED 02/24/2016 ZHANG PHILLIPS MD Ot G47.33 OBSTRUCTIVE SLEEP APNEA (ADULT) (PEDIATR 02/24/2016 ZHANG PHILLIPS MD Ot I12.9 HYPERTENSIVE CHRONIC KIDNEY DISEASE W ST 02/24/2016 ZHAGN PHILLIPS MD Ot N18.9 CHRONIC KIDNEY DISEASE, UNSPECIFIED 02/24/2016 JACQUELINE CHAND, ZHANG Parada Ot Z80.51 FAMILY HISTORY OF MALIGNANT NEOPLASM OF 02/24/2016 GONZALO CHAND, ERIK Deshpande Ot M48.06 SPINAL STENOSIS, LUMBAR REGION 03/10/2016 ERIK SÁNCHEZ MD, Ot M48.06 SPINAL STENOSIS, LUMBAR REGION 03/27/2016 JACQUELINE CHAND, ZHANG Parada Ot D47.2 MONOCLONAL GAMMOPATHY 03/27/2016 ZHANG PHILLIPS MD Ot 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 03/27/2016 JACQUELINE CHAND, ZHANG Parada Ot E66.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 11/07/2016 PATY DOANITHA C Ot Z98.1 ARTHRODESIS STATUS 12/01/2016 SWEANEY [...] 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 07/17/2017 JACQUELINE CHAND, ZHANG Parada Ot E66.9 [...] 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 07/20/2017 JACQUELINE CHAND, ZHANG Parada Ot E66.9 [...] 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 07/20/2017 ZHANG PHILLIPS MD Ot E66.9 OBESITY, [...] 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 07/24/2017 ZHANG PHILLIPS MD Ot E66.9 OBESITY, UNSPECIFIED 07/24/2017 ZHANG PHILLIPS MD Ot G47.33 OBSTRUCTIVE SLEEP APNEA (ADULT) (PEDIATR 07/24/2017 ZHANG PHILLIPS MD Ot I12.9 HYPERTENSIVE CHRONIC KIDNEY DISEASE W ST 07/24/2017 ZHANG PIHLLIPS MD Ot N18.9 CHRONIC KIDNEY DISEASE, UNSPECIFIED [...] 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 02/01/2018 ZHANG PHILLIPS MD Ot E66.9 OBESITY, UNSPECIFIED 02/01/2018 ZHANG PHILLIPS MD Ot G47.33 OBSTRUCTIVE SLEEP APNEA (ADULT) (PEDIATR 02/01/2018 ZHANG PHILLIPS MD Ot I12.9 HYPERTENSIVE CHRONIC KIDNEY DISEASE W ST 02/01/2018 JACQUELINE CHAND, ZHANG Parada Ot N18.9 CHRONIC KIDNEY DISEASE, UNSPECIFIED 02/01/2018 JACQUELINE CHAND, ZHANG Parada Ot Z80.51 FAMILY HISTORY OF MALIGNANT NEOPLASM OF 02/01/2018 GONZALO CAHND, ERIK Deshpande Ot M48.06 SPINAL STENOSIS, LUMBAR [...] MD, Ot I25.10 ATHSCL HEART DISEASE OF [place] CORONARY 05/22/2018 VINITA SIDDIQI MD, Ot K21.9 GASTRO-ESOPHAGEAL REFLUX DISEASE WITHOUT 05/22/2018 VINITA SIDDIQI MD, Ot K64.0 FIRST DEGREE HEMORRHOIDS 05/22/2018 VINITA SIDDIQI MD, Ot N40.0 BENIGN PROSTATIC HYPERPLASIA WITHOUT LOW 05/22/2018 VINITA SIDDIQI MD, Ot R53.82 CHRONIC FATIGUE, UNSPECIFIED 05/22/2018 VINITA SIDDIQI MD, Ot Z12.11 ENCOUNTER FOR SCREENING FOR MALIGNANT NE 05/22/2018 VINITA SIDDIQI MD, Ot Z79.82 PIPE INSPECTOR (CURRENT) USE OF ASPIRIN 05/22/2018 VINITA SIDDIQI MD, Ot Z79.84 PIPE INSPECTOR (CURRENT) USE OF ORAL HYPOGLYC 05/22/2018 VINITA SIDDIQI MD, Ot Z79.899 OTHER FPC (CURRENT) DRUG THERAPY 05/24/2018 VINITA SIDDIQI MD, Ot D12.4 BENIGN NEOPLASM OF DESCENDING COLON 05/24/2018 KIDO MD, TAKAAKI Ot E11.9 TYPE 2 DIABETES MELLITUS WITHOUT COMPLIC 05/24/2018 VINITA SIDDIQI MD Ot E78.00 PURE HYPERCHOLESTEROLEMIA, UNSPECIFIED 05/24/2018 VINITA SIDDIQI MD Ot F41.9 ANXIETY DISORDER, UNSPECIFIED 05/24/2018 VINITA SIDDIQI MD Ot I10 ESSENTIAL (PRIMARY) HYPERTENSION 05/24/2018 VINITA SIDDIQI MD Ot I25.10 ATHSCL HEART DISEASE OF [place] CORONARY 05/24/2018 VINITA SIDDIQI MD Ot K21.9 GASTRO-ESOPHAGEAL REFLUX DISEASE WITHOUT 05/24/2018 VINITA SIDDIQI MD Ot K64.0 FIRST DEGREE HEMORRHOIDS 05/24/2018 VINITA SIDDIQI MD, Ot N40.0 BENIGN PROSTATIC HYPERPLASIA WITHOUT LOW 05/24/2018 VINITA SIDDIQI MD, Ot R53.82 CHRONIC FATIGUE, UNSPECIFIED 05/24/2018 VINITA SIDDIQI MD Ot Z12.11 ENCOUNTER FOR SCREENING FOR MALIGNANT NE 05/24/2018 VINITA SIDDIQI MD Ot Z79.82 FPC (CURRENT) USE OF ASPIRIN 05/24/2018 VINITA SIDDIQI MD Ot Z79.84 PIPE INSPECTOR (CURRENT) USE OF ORAL HYPOGLYC 05/24/2018 VINITA SIDDIQI MD Ot Z79.899 OTHER PIPE INSPECTOR (CURRENT) DRUG THERAPY 05/24/2018 VINITA SIDDIQI MD Ot D12.4 BENIGN NEOPLASM OF DESCENDING COLON 05/24/2018 VINITA SIDDIQI MD Ot E11.9 TYPE 2 DIABETES MELLITUS WITHOUT COMPLIC 05/24/2018 VINITA SIDDIQI MD Ot E78.00 PURE HYPERCHOLESTEROLEMIA, UNSPECIFIED 05/24/2018 VINITA SIDDIQI MD Ot F41.9 ANXIETY DISORDER, UNSPECIFIED 05/24/2018 VINITA SIDDIQI MD Ot I10 ESSENTIAL (PRIMARY) HYPERTENSION 05/24/2018 VINITA SIDDIQI MD Ot I25.10 ATHSCL HEART DISEASE OF [place] CORONARY 05/24/2018 VINITA SIDDIQI MD Ot K21.9 GASTRO-ESOPHAGEAL REFLUX DISEASE WITHOUT 05/24/2018 VINITA SIDDIQI MD Ot K64.0 FIRST DEGREE HEMORRHOIDS 05/24/2018 VINITA SIDDIQI MD Ot N40.0 BENIGN PROSTATIC HYPERPLASIA WITHOUT LOW 05/24/2018 VINITA SIDDIQI MD Ot R53.82 CHRONIC FATIGUE, UNSPECIFIED 05/24/2018 VINITA SIDDIQI MD, Ot Z12.11 ENCOUNTER FOR SCREENING FOR MALIGNANT NE 05/24/2018 VINITA SIDDIQI MD, Ot Z79.82 FPC (CURRENT) USE OF ASPIRIN 05/24/2018 VINITA SIDDIQI MD, Ot Z79.84 PIPE INSPECTOR (CURRENT) USE OF ORAL HYPOGLYC 05/24/2018 VINITA SIDDIQI MD, Ot Z79.899 OTHER FPC (CURRENT) DRUG THERAPY 05/27/2018 VINITA SIDDIQI MD, Ot D12.4 BENIGN NEOPLASM OF DESCENDING COLON 05/27/2018 VINITA SIDDIQI MD, Ot E11.9 TYPE 2 DIABETES MELLITUS WITHOUT COMPLIC 05/27/2018 VINITA SIDDIQI MD, Ot E78.00 PURE HYPERCHOLESTEROLEMIA, UNSPECIFIED 05/27/2018 VINITA SIDDIQI MD, Ot F41.9 ANXIETY DISORDER, UNSPECIFIED 05/27/2018 VINITA SIDDIQI MD Ot I10 ESSENTIAL (PRIMARY) HYPERTENSION 05/27/2018 VINITA SIDDIQI MD, Ot I25.10 ATHSCL HEART DISEASE OF [place] CORONARY 05/27/2018 VINITA SIDDIQI MD, Ot K21.9 GASTRO-ESOPHAGEAL REFLUX DISEASE WITHOUT 05/27/2018 VINITA SIDDIQI MD, Ot K64.0 FIRST DEGREE HEMORRHOIDS 05/27/2018 VINITA SIDDIQI MD, Ot N40.0 BENIGN PROSTATIC HYPERPLASIA WITHOUT LOW 05/27/2018 VINITA SIDDIQI MD, Ot R53.82 CHRONIC FATIGUE, UNSPECIFIED 05/27/2018 VINITA SIDDIQI MD, Ot Z12.11 ENCOUNTER FOR SCREENING FOR MALIGNANT NE 05/27/2018 VINITA SIDDIQI MD, Ot Z79.82 FPC (CURRENT) USE OF ASPIRIN 05/27/2018 VINITA SIDDIQI MD, Ot Z79.84 PIPE INSPECTOR (CURRENT) USE OF ORAL HYPOGLYC 05/27/2018 VINITA SIDDIQI MD, Ot Z79.899 OTHER PIPE INSPECTOR (CURRENT) DRUG THERAPY Procedures There is no [...] troponin i.cardiac measurement (mass/volume) < ng/mL <0.30 [id number] - 07/24/17 09:29 Serum or plasma urea [...] 16:38:15 08/15/2018 23:59:59 CLS Outpatient Caterina Grant [id number] 05/22/2018 09:17:00 05/22/2018 12:03:00 DIS Outpatient VINITA SIDDIQI MD [facility] ENDO SCREENING [id number] 05/16/2018 15:00:00 05/16/2018 16:00:00 DIS Outpatient VINITA SIDDIQI MD [facility] PREOP COLONOSCOPY [id number] 02/01/2018 15:21:00 02/01/2018 23:59:59 CLS Outpatient CATERINA GRANT DO [facility] RAD MENTAL STATUS CHANGE,HX OF RENAL CANCER [id number] 08/21/2017 16:46:00 08/21/2017 23:59:59 CLS Outpatient LINA LAND MD [facility] RAD BENIGN PROSTATE HYPERTROPHY WITH OBSTRUCTION [id number] 07/24/2017 09:21:00 07/24/2017 23:59:59 CLS Outpatient ALONDRA CHRISTENSEN DO Bal[facility] RAD GROIN PAIN, RIGHT [id number] 11/03/2016 13:34:00 11/03/2016 23:59:59 CLS Outpatient PATY WOODRUFF ANITHA C [facility] RAD M47.12 [id number] 06/12/2016 11:17:00 06/12/2016 23:59:59 CLS Outpatient LINA LAND MD [facility] RAD N40.1, C64.9 [id number] 04/19/2016 07:39:00 04/19/2016 23:59:59 CLS Outpatient ARACELI (BESSY)JOSE RAFAEL [facility] RAD M48.06 [id number] 02/22/2016 10:03:00 02/22/2016 23:59:59 CLS Outpatient ERIK SÁNCHEZ MD [facility] RAD WEAKNESS [id number] 12/06/2015 00:10:00 12/06/2015 23:59:59 CLS Preadmit ZHANG PHILLIPS MD [facility] ONC [id number] 09/20/2015 16:59:00 12/05/2015 00:01:00 DIS Outpatient ZHANG PHILLIPS MD [facility] ONC [id number] 11/16/2015 14:13:00 11/16/2015 16:40:00 DIS Emergency BERTHA ESTEVES MD [facility] ER FATIGUE CHEST TIGHTNESS [id number] 09/13/2015 08:52:00 09/13/2015 23:59:59 CLS Outpatient ZHANG PHILLIPS MD [facility] RAD RENAL CELL CANCER [id number] 05/17/2015 20:59:00 05/18/2015 06:05:00 DIS Outpatient JAMEEL BOWSER APRN [facility] SLEEP ABNORMAL LIMB MOVEMENT, DAYTIME SLEEPINESS [id number] 06/11/2013 09:29:00 06/11/2013 23:59:59 CLS Outpatient LINA LAND MD [facility] RAD KIDNEY [place] [id number] 06/14/2012 12:08:00 06/14/2012 23:59:59 CLS Outpatient LINA LAND MD [facility] RAD 189.0,MAGILANT NEOPLASM OF KIDNEY [id number] 08/23/2018 19:12:00 Document Registration [id number] 11/02/2011 14:59:00 Document Registration [id number] 01/24/2010 15:30:00 Document Registration
[2018-08-23 23:30] VITALS: BP 185/72
[2018-08-23] MEDS ORDERED: morphine INJ 4 MG/ML 1 ML (VIAL/SYRINGE) IV PRN (23:30)
[2018-08-23] MEDS ORDERED: CATHETER FLUSH 10 ML SYR IV PRN (23:30)
[2018-08-23] MEDS ORDERED: NITROGLYCERIN 0.4 MG SL TABS BTL 25'S SL PRN (23:30)
[2018-08-23 23:45] VITALS: BP 170/83
[2018-08-24] VITALS (10 sets, daily range): BP systolic 133–171; BP diastolic 80–100
[2018-08-24] MEDS ORDERED: PATIENT MAY USE OWN MEDS, ALL MC SCH (00:15)
[2018-08-24] MEDS ORDERED: CATHETER FLUSH 10 ML SYR IV SCH (06:00)
[2018-08-24 06:43] LABS: BUN/CREATININE RATIO 10; CALCIUM 9.4 MG/DL (8.5-10.1); CARBON DIOXIDE 24 MMOL/L (21-32); CHLORIDE 101 MMOL/L (98-107); CREATINE KINASE 144 U/L (30-200); CREATININE SERUM 1.27 MG/DL (0.60-1.30); GFR ESTIMATED 55; GLUCOSE 125 MG/DL (70-105); MAGNESIUM 1.6 MG/DL (1.8-2.4); POTASSIUM 3.7 MMOL/L (3.6-5.0); SODIUM 139 MMOL/L (135-145)
[2018-08-24 06:44] LABS: CHOLESTEROL 218 MG/DL (< 200); HDL CHOLESTEROL 29 MG/DL (40-60); TRIGLYCERIDES 297 MG/DL (<150); VLDL CHOLESTEROL 59 MG/DL (5-40)
[2018-08-24] MEDS ORDERED: ASPIRIN E.C. 81 MG (ECOTRIN) TAB PO SCH (09:00)
[2018-08-24] MEDS ORDERED: MAGNESIUM OXIDE (MAG-OX)400 MG TAB PO SCH (09:00)
--- NOTE | 2018-08-24 10:30 | Short Stay Summary-Hospitalist ---
History of Present Illness HPI/Chief Complaint Patient is a 78-year-o male with a past medical history of coronary artery disease status post stenting x8, non insulin dependent diabetes, HTN, and hyperlipidemia who presented to the [facility] department with complaint of chest pain. He reports this has been going on or a few days and has been worse with exertion. He describes it as a fullness in his chest and it comes and goes. He denies any precipitating factors or alleviating factors. He does state it feels like when pain he had when he needed stents previously. He state since he arrived his pain as resolved. He ecently switched senior solutions consultant to Dr. Boyd. He states he has a nuclear stress test scheduled for February. Source: patient Date Seen 08/24/18 Time Seen by a Provider: 10:29 Attending Physician Caterina Grant DO PCP Caterina Grant DO Referring Physician Date of Admission Aug 23, 2018 at 22:09 Home Medications & Allergies Home Medications Reviewed patient Home Medication Reconciliation performed by pharmacy medication reconciliations brewery technician and/or nursing. Patients Allergies have been reviewed. Allergies Allergies Coded Allergies Sulfa (Sulfonamide Antibiotics) (Unverified Allergy, Unknown, 07/24/17) Past Dtcbcyz-Qbcgrm-Ipdzpl Hx Past Med/Social Hx: Reviewed and Corrections made Patient Social History Alcohol Use: Occasionally Uses Recreational Drug Use: No Smoking Status: Never a Smoker 2nd Hand Smoke Exposure: No Recent Foreign Travel: No Contact w/other who traveled: No Recent Hopitalizations: No Recent Infectious Disease Expo: No Immunizations Up To Date Date of Pneumonia Vaccine: May 16, 2012 Date of Influenza Vaccine: Nov 05, 2017 Seasonal Allergies Seasonal Allergies: No Past Medical History Surgeries: Coronary Stent, Gallbladder Cardiac: Coronary Artery Disease, High Cholesterol, Hypertension, Irregular Heartbeat Reproductive: No Genitourinary: Benign Prostatic Hyperpl Gastrointestinal: Gastroesophageal Reflux Musculoskeletal: Chronic Back Pain Endocrine: Diabetes, Non-Insulin dep HEENT: Cataract Cancer: Kidney Did You Recieve Any Treatments: Yes What Type of Treatment Did You: Surgical Intervention Psychosocial: Anxiety History of Blood Disorders: No Review of Systems Constitutional: weakness (chronic x5 years) EENTM: no symptoms reported Respiratory: No cough, No orthopnea; short of breath (chronic) Cardiovascular: chest pain; No edema; Hx of Intervention; No palpitations Gastrointestinal: No abdominal pain, No nausea, No vomiting Genitourinary: no symptoms reported Musculoskeletal: muscle weakness Skin: no symptoms reported Psychiatric/Neurological: No Symptoms Reported Physical Exam Physical Exam Vital Signs Vital Signs - First Documented 08/23/18 08/23/18 18:53 22:58 Temp 97.5 Pulse 96 Resp 18 B/P (MAP) 195/91 (125) Pulse Ox 100 O2 Delivery Room Air Capillary Refill : Less Than 3 Seconds Height, Weight, BMI Height: 5'10.00" Weight: 208lbs. 4.0oz. 94.810849qn; 29.9 BMI Method:Stated General Appearance: No Apparent Distress, WD/WN HEENT: Moist Mucous Membranes; No Scleral Icterus (L), No Scleral Icterus (R) Neck: Normal Inspection, Supple; No Thyromegaly Respiratory: Lungs Clear, No Accessory Muscle Use, No Respiratory Distress Cardiovascular: Regular Rate, Rhythm, No Edema, No Murmur Gastrointestinal: Normal Bowel Sounds, Non Tender, Soft Extremity: Non Tender, No Calf Tenderness, No Pedal Edema Neurologic/Psychiatric: Alert, Oriented x3, Normal Mood/Affect; No Aphasia, No Facial Droop Skin: Normal Color, Warm/Dry, Other (incision over the upper sternal area with sutures intact) Results Results/Procedures Labs Laboratory Tests 08/23/18 18:58 08/24/18 05:15 Patient resulted labs reviewed. Imaging: Reviewed Imaging Report Short Stay Diagnosis Discharge Diagnosis-Short Stay Admission Diagnosis Chest Pain Final Discharge Diagnosis Chest Pain Conclusion Plan Chest Pain with history of CAD Dr Stafford consulted Serial troponins were negative Nuclear stress diversion so unable to do today Can DC home if ok with cardiology as serial troponins were negative and no further chest pain Will need to follow up with Dr Grant and his senior solutions consultant (he did say he may switch to cardiology here so will leave that to his discretion) Plan for outpatient stress with Dr Stafford on Diagnosis/Problems Diagnosis/Problems (1) Chest pain Status: Acute Qualifiers: Qualified Codes: R07.9 - Chest pain, unspecified (2) CAD (coronary artery disease) Status: Chronic Qualifiers: Qualified Codes: I25.10 - Atherosclerotic heart disease of [place] coronary artery without angina pectoris (3) HLD (hyperlipidemia) Qualifiers: Qualified Codes: E78.5 - Hyperlipidemia, unspecified (4) Essential (primary) hypertension Status: Chronic (5) Non-insulin dependent type 2 diabetes mellitus Status: Chronic (6) Hypomagnesemia Clinical Quality Measures AMI/AHF: ASA po Prior to arrival: Yes (81 ASA) DVT/VTE Risk/Contraindication: Risk Factor Score Per Nursin RFS Level Per Nursing on Admit: 3=High DASIA LÓPEZ MD Aug 24, 2018 10:30
--- NOTE | 2018-08-24 12:38 | Discharge Inst-Simple/Standard ---
Discharge Inst-Standard Patient Instructions/Follow Up Plan of Care/Instructions/FU: Please continue to take care or medications as written. Please follow-up with Dr. CONTRERAS and with your preformer impregnated fabrics in the 1 next 1-2 weeks. Activity as Tolerated: Yes Discharge Diet: Cardiac Diet Return to The Hospital For: chest pain, short of breath, palpitations, if you feel you are getting worse. DASIA LÓPEZ MD Aug 24, 2018 12:38
--- NOTE | 2018-08-24 14:05 | NUR ---
CHARO FRANCO demonstrates understanding of discharge instructions and accurately returns instructions upon questioning. Copy of Post-Discharge Instructions and Medication Discharge Instructions given to PATIENT. CHARO FRANCO is able to manage continuing needs after discharge. Patients belongings returned to [facility]. Skin dry and intact; no breakdown noted. Patient discharged from [facility] on 08/24/18 at 1405. CHARO FRANCO left floor via WHEELCHAIR, accompanied by STAFF AND .
--- NOTE | 2018-08-24 14:19 | Consultation-Cardiology ---
HPI-Cardiology Cardiology Consultation: Date of Consultation 08/24/18 Date of Admission Attending Physician Anjali Carroll MD Admitting Physician Caterina Grant DO Consulting Physician Jeramy STAFFORD MD HPI: Time Seen by a Provider: 11:00 Chief Complaint: Chest pain This is a 78-year-old gentleman who presents with complain of intermittent chest pain for the last few days. Chest pain is more like fullness. Worse with exertion. No radiation. No exacerbating or relieving factors. Mild to moderate intensity. Patient follows with Dr. Barbosa previously who has since retired. He has seen Dr. Boyd in [place] and had an angiogram 2 years ago which according to the patient did not require any further stents. He does have history of CAD with numerous stents in the past. Review of Systems-Cardiology Review of Systems Constitutional: As described under HPI; No As described under HPI, No no symptoms reported, No chills, No fever, No lightheadedness Eyes: No As described under HPI, No no symptoms reported, No blindness, No blurred vision, No contact lenses, No drainage, No decreased acuity, No foreign body sensation, No pain, No vision change Ears/Nose/Throat: No As described under HPI, No no symptoms reported, No chronic hearing loss, No ear discharge, No ear pain, No nasal drainage, No ulcerations Respiratory: No no symptoms reported; As described under HPI; No As described under HPI, No cough, No orthopnea, No shortness of breath, No SOB with excertion Cardiovascular: No no symptoms reported; As described under HPI; No As described under HPI; chest pain; No edema, No irregular heart rate, No lightheadedness, No palpitations Gastrointestinal: No no symptoms reported, No As described under HPI, No abdomen distended, No abdominal pain, No blood streaked bowels, No constipation, No diarrhea, No nausea, No vomiting, No stool coloration changes Genitourinary: No As described under HPI, No burning, No dysuria, No discharge, No frequency, No flank pain, No hematuria, No urgency Skin: No rash, No skin related problems, No ulcerations Psychiatric/Neurological: No anxiety, No depression, No seizure, No focal weakness, No syncope Hematologic: No bleeding abnormalities [id number]-Smavtx Hx Patient Social History Alcohol Use: Occasionally Uses Recreational Drug Use: No Smoking Status: Never a Smoker 2nd Hand Smoke Exposure: No Recent Foreign Travel: No Recent Infectious Disease Expo: No Hospitalization with Isolation: Denies Immunizations Up To Date Date of Pneumonia Vaccine: May 16, 2012 Date of Influenza Vaccine: Nov 05, 2017 Past Medical History PMH As described under Assessment. Allergies and Home Medications Allergies Coded Allergies: Sulfa (Sulfonamide Antibiotics) (Unverified Allergy, Unknown, 07/24/17) Home Medications Aspirin 81 Mg Tab.chew, 81 MG PO DAILY, (Reported) Atorvastatin Calcium 80 Mg Tablet, 80 MG PO HS, (Reported) Bupropion HCl 150 Mg Tablet.er, 150 MG PO DAILY, (Reported) Chlorthalidone 25 Mg Tablet, 12.5 MG PO DAILY, (Reported) take 1/2 of 25mg tab Clopidogrel Bisulfate 75 Mg Tablet, 75 MG PO DAILY, (Reported) Eszopiclone 3 Mg Tablet, 3 MG PO HS, (Reported) Finasteride 5 Mg Tablet, 5 MG PO DAILY, (Reported) Glimepiride 4 Mg Tablet, 4 MG PO DAILY, (Reported) Lisinopril 20 Mg Tablet, 20 MG PO DAILY, (Reported) Metformin HCl 1,000 Mg Tablet, 1,000 MG PO BID, (Reported) Nebivolol HCl 5 Mg Tablet, 5 MG PO DAILY, (Reported) Omeprazole 40 Mg Capsule.dr, 40 MG PO DAILY, (Reported) Tamsulosin HCl 0.4 Mg Cap, 0.4 MG PO DAILY, (Reported) Patient Home Medication List Home Medication List Reviewed: Yes Physical Exam-Cardiology Physical Exam Vital Signs/I&O Capillary Refill : Less Than 3 Seconds Constitutional: appears stated age, AAO x 3; No apparent distress; well- developed, well-nourished HEENT: PERRL; No normal ENT inspection, No TMs normal, No pharynx normal, No scleral icterus (R), No scleral icterus (L), No pale conjunctivae (R), No pale conjunctivae (L), No photophobia, No TM abnormal (R), No TM abnormal (L), No pharyngeal erythema, No tonsillar exudate, No other, No discharge, No EOMI; hearing is well preserved; No hard of hearing; oral hygience is good; No ulceration, No xanthelasmas are seen Neck: No non-tender, No full range of motion, No supple, No normal inspection, No carotid bruit, No limited range of motion, No lymphadenopathy (R), No lymphadenopathy (L), No tender lateral, No tender midline, No thyromegaly, No other; carotid pulses are 2 + bilaterally; No with good upstrokes Respiratory: No accessory muscle use, No respiratory distress, No chest tender, No chest expansion is symmetric; chest is bilaterally symmetric; No lungs clear to percussion; lungs clear to auscultation; No crackles, No rhonchi, No rales, No stridor, No wheezing, No pleural rub, No other Cardiovascular: regular rate-rhythm; No irregularly irregular, No extra beats, No parasternal heave is noted, No JVD, No edema, No bradycardia, No tachycardia, No point of maximal impulse, No cardiac thrills are palpable; S1 and S2; No gallop/S3, No gallop/S4, No diastolic murmur, No systolic murmur, No friction rub, No click, No other Gastrointestinal: No tender, No soft, No round, No distended, No pulsatile mass, No organomegaly, No guarding, No rebound, No tenderness, No hernia, No mass, No audible bowel sounds, No abnormal bowel sounds, No abdominal bruits, No spleenomegaly, No other Rectal: deferred Extremities: No normal range of motion, No non-tender, No normal inspection, No pedal edema, No calf tenderness, No normal capillary refill, No pelvis stable, No calf tenderness, No inflammation, No pedal edema, No slow capillary refill, No swelling, No other, No abrasion, No clubbing, No cyanosis, No ecchymosis, No laceration, No no lower extremity edema bilateral, No significant edema, No tenderness, No wound Neurologic/Psychiatric: no motor/sensory deficits, alert, normal mood/affect, oriented x 3, power is 5/5 both on sides Skin: No normal color, No warm/dry, No cyanosis, No cool, No diaphoresis, No damp, No ecchymosis, No jaundice, No mottled, No pallor, No rash, No tattoos/piercings, No ulcerations, No rash on exposed areas, No ulcerations on exposed areas, No other Data Review Labs ECG Impression ECG Initial ECG Rhythm: Normal Sinus A/P-Cardiology Assessment/Admission Diagnosis Chest pain, CAD, Diabetes, Hypertension, Hyperlipidemia Plan Acute coronary syndrome ruled out with serial negative troponin and EKG. I'll perform a nuclear stress test on . If abnormal we will have a low threshold to perform coronary angiography. The patient will like to switch his cardiology care to [place]. I also educated him to seek immediate medical attention if he has recurrent chest pain. CAD: Continue dual antiplatelet therapy. Hypertension: Continue outpatient medical therapy. Hyperlipidemia: Continue statin therapy. Diabetes: Defer to the primary team. Thank you for your consultation. Please call me if you have any questions. Jose Stafford MD, FACP, FACC, FSCAI, FHRS, CCDS Interventional Cardiology Cardiac Electrophysiology Vascular Medicine and Endovascular Interventions Clinical Quality Measures AMI/AHF: ASA po Prior to arrival: Yes (81 ASA) DVT/VTE Risk/Contraindication: Risk Factor Score Per Nursin RFS Level Per Nursing on Admit: 3=High Jeramy STAFFORD MD Aug 24, 2018 14:19
== END 2018-08-24 12:35 | disposition home or self-care (01) ==
LOC: EDUNIT# 18:52 → ER 18:53 → 4TH 22:09 → UNDOADMOB 22:09 → 4TH 23:15 → UNDODISOB 08-24 14:05
PROVIDERS: ADMIT Internal Medicine; ATTEND Family Medicine
DX: R07.9 Chest pain, unspecified (principal); I25.10 Atherosclerotic heart disease of native coronary artery without angina pectoris; E11.9 Type 2 diabetes mellitus without complications; I10 Essential (primary) hypertension; E78.5 Hyperlipidemia, unspecified; E78.00 Pure hypercholesterolemia, unspecified; I49.9 Cardiac arrhythmia, unspecified; N40.0 Benign prostatic hyperplasia without lower urinary tract symptoms; K21.9 Gastro-esophageal reflux disease without esophagitis; M54.9 Dorsalgia, unspecified; F41.9 Anxiety disorder, unspecified; Z85.528 Personal history of other malignant neoplasm of kidney; Z79.82 Long term (current) use of aspirin; Z79.899 Other long term (current) drug therapy; Z79.84 Long term (current) use of oral hypoglycemic drugs; Z95.5 Presence of coronary angioplasty implant and graft
CPT/HCPCS: 36415; 71045; 80048; 80053; 80061; 82550; 83735; 83874; 83880; 84484; 85025; 85610; 85730; 93005; 93041; 93306; 96365

== ENCOUNTER → 2018-08-29 | Outpatient (CLI) | payer MEDICARE, OTHER ==
[~2018-08-29] VITALS: Ht 177.8 cm; Wt 93.0 kg
[~2018-08-29] MED LIST changes: +CATHETER FLUSH 10 ML SYR IV PRN; +REGADENOSON 0.4 MG/5 ML SYR (LEXISCAN) IV ONE
[2018-08-29 09:27] VITALS: BP 177/84
[2018-08-29 09:28] VITALS: BP 161/70
--- NOTE | 2018-08-31 14:01 | Cardiology Stress Test Report ---
Stress Test Report Type of NM Stress Test: Test Type: LEXISCAN 0.4MG/5ML Date of Procedure/Referring: Date of Procedure: Aug 29, 2018 PCP Jeramy Stafford MD Admitting Physician Caetrina Grant DO Indications: Chest pain Baseline Heart Rate: 85 Baseline Blood Pressure: Blood Pressure Systolic: 161 Blood Pressure Diastolic: 70 Baseline EKG: Baseline EKG: sinus rhythm Summary & Conclusion: Summary: The patient was brought to the stress lab after informed consent was taken. Stress test was performed according to the Lexiscan protocol. 0.4 mg of IV Lexiscan was given. Low-grade exercise was performed. Baseline EKG showed sinus rhythm at 85 BPM. Initial blood pressure was 177/84 mmHg. Maximum heart rate was 123 bpm and blood pressure 170/87 mmHg. Patient did not have any chest pain, arrhythmias or ST segment changes during the stress test. 10.86 mCi of Myoview were given for rest imaging and 31.7 mCi of Myoview given for stress imaging. Transient ischemic dilatation score 1.02, EF 48 percent. Normal wall motion. Fixed inferior defect moderate size. Mild inferior apical reversible defect. Conclusion: Pharmacological stress test was negative for ischemia. Normal LV function with no wall motion abnormalities. 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 Coronary angiography is recommended. Jeramy STAFFORD MD Aug 31, 2018 2:01 pm
== END ==
LOC: CARD 07:27
PROVIDERS: ATTEND Internal Medicine Interventional Cardiology
DX: I25.10 Atherosclerotic heart disease of native coronary artery without angina pectoris (principal)
CPT/HCPCS: 78452; 93017

== ENCOUNTER → 2018-08-29 | Outpatient (CLI) | payer MEDICARE, OTHER ==
[~2018-08-29] MED LIST changes: -CATHETER FLUSH 10 ML SYR IV PRN; -REGADENOSON 0.4 MG/5 ML SYR (LEXISCAN) IV ONE
--- NOTE | 2018-08-29 13:59 | Diagnostic Imaging Report ---
CLINICAL INDICATION: Patient with history of right renal cell carcinoma with partial nephrectomy. EXAM: Bilateral renal ultrasound and bladder ultrasound with pre-and post void imaging. COMPARISON: Renal ultrasound dated 09/07/2017. FINDINGS: Slightly small right kidney likely due to partial nephrectomy. The left kidney is normal in size. Otherwise, both kidneys are normal in shape, echogenicity and cortical thickness without hydronephrosis, stones, or focal lesions with the right and left kidneys measuring 8.2 cm and 10.9 cm in their craniocaudal dimensions. The pre-void bladder volume is 202 cc. The post void bladder volume is elevated at 123 cc. Otherwise, bladder shows no significant abnormality. IMPRESSION: 1: Right partial nephrectomy with no developing mass seen. Both kidneys are otherwise unremarkable. There is no hydronephrosis. 2: Elevated postvoid bladder residual of 123 cc. Otherwise, bladder is unremarkable. Dictated by: Dictated on workstation # [id number]
== END ==
LOC: RAD 10:26
PROVIDERS: ATTEND Specialist
DX: C64.9 Malignant neoplasm of unspecified kidney, except renal pelvis (principal); N40.1 Benign prostatic hyperplasia with lower urinary tract symptoms; Z90.5 Acquired absence of kidney
CPT/HCPCS: 76770

== ENCOUNTER 2018-10-02 15:47 | Observation (INO) | payer MEDICARE, OTHER | END 2018-10-04 14:25 | disposition home or self-care (01) | LOC: ICU 10-03 15:10 → ER 15:47 → 4TH 18:00 ==

== ENCOUNTER 2018-12-16 21:27 | Observation (INO) | payer MEDICARE, OTHER ==
[~2018-12-16] VITALS: Ht 177 cm; Wt 90.2 kg
[~2018-12-16 21:27] MED LIST changes: +ASPI-983 PO; +BUPR150T7 PO; +CHOL10007 PO; +CLOP75TA28 PO; +CNC1KV PO; +ERGO50006 PO; +MAGN400T39 PO; +METO-387 PO; +PANT40TA3 PO; +TICA90TA PO
[2018-12-16] MEDS ORDERED: ONDANSETRON 4 MG/2 ML (SDV) Z0FRAN ONE (21:47)
[2018-12-16 21:54] LABS: BASOPHILS % (AUTO) 0 % (0-10); EOSINOPHILS # (AUTO) 0.2 10^3/uL (0.0-0.3); EOSINOPHILS % (AUTO) 3 % (0-10); HEMATOCRIT 44 % (40-54); HEMOGLOBIN 14.9 G/DL (13.3-17.7); LYMPHOCYTES # (AUTO) 1.3 X 10^3 (1.0-4.0); LYMPHOCYTES % (AUTO) 17 % (12-44); MEAN CORPUSCULAR HEMOGLOBIN 31 PG (25-34); MEAN CORPUSCULAR HGB CONC 34 G/DL (32-36); MEAN CORPUSCULAR VOLUME 91 FL (80-99); MEAN PLATELET VOLUME 10.8 FL (7.4-10.4); MONOCYTES # (AUTO) 0.7 X 10^3 (0.0-1.0); MONOCYTES % (AUTO) 10 % (0-12); NEUTROPHILS # (AUTO) 5.4 X 10^3 (1.8-7.8); NEUTROPHILS % (AUTO) 70 % (42-75); PLATELET COUNT 186 10^3/uL (130-400); RED CELL DISTRIBUTION WIDTH 13.6 % (10.0-14.5); WHITE BLOOD COUNT 7.7 10^3/uL (4.3-11.0)
--- NOTE | 2018-12-16 21:54 | ED Neurological Problem ---
General Chief Complaint: Neurological Problems Stated Complaint: CP Source: patient, family ( and 2 sons) Exam Limitations: no limitations History of Present Illness Date Seen by Provider: Dec 16, 2018 Time Seen by Provider: 21:30 Initial Comments Patient presents to ER by private conveyance with his and chief complaint that she called him about an hour ago when he was very confused and slurring speech not making any sense. She went home and picked him up with her son and brought him to the ER. He is diabetic and they did not check his blood sugar. He is a vasculopath with [address] Stafford and Dr. Grant but no CABG and no history of CVA. He is on Brilinta. He does not take a blood thinner. Patient says he was just very confused and had a hard time remembering people's names or what was going on. He is on metformin, glimepiride, atorvastatin, metoprolol etc. He does not smoke but he has high blood pressure. For the past several days he has been having difficulty keeping his blood pressure down and he did follow up with his primary care doctor and she recently increased his blood pressure medicine. Allergies and Home Medications Allergies Coded Allergies: Sulfa (Sulfonamide Antibiotics) (Unverified Allergy, Unknown, 07/24/17) Home Medications Aspirin 81 Mg Tablet.dr, 81 MG PO HS, (Reported) Atorvastatin Calcium 80 Mg Tablet, 40 MG PO HS, (Reported) TAKES 1/2 (80MG) TABLET Bupropion HCl 150 Mg Tab.er.24h, 150 MG PO DAILY, (Reported) Cholecalciferol (Vitamin D3) 1,000 Unit Capsule, 1,000 UNIT PO [facility], (Reported) Cyanocobalamin 1,000 Mcg/Ml Inj, 1,000 MCG PO EVERY 2 WEEKS, (Reported) Ergocalciferol (Vitamin D2) 50,000 Unit Capsule, 50,000 UNITS PO Sa, (Reported) Eszopiclone 3 Mg Tablet, 3 MG PO HS, (Reported) Finasteride 5 Mg Tablet, 5 MG PO HS, (Reported) Glimepiride 4 Mg Tablet, 4 MG PO BID Prescribed by: MARIA FERNANDA GRANT on 10/04/18 1302 Lisinopril 20 Mg Tablet, 20 MG PO HS, (Reported) Magnesium Oxide 400 Mg Tablet, 400 MG PO HS, (Reported) Metformin HCl 1,000 Mg Tablet, 1,000 MG PO 1200,2100 Hold until October 06 Prescribed by: MARIA FERNANDA GRANT on 10/04/18 1300 Metoprolol Succinate 25 Mg Tab.er.24h, 25 MG PO DAILY, (Reported) Pantoprazole Sodium 40 Mg Tablet.dr, 40 MG PO HS, (Reported) Tamsulosin HCl 0.4 Mg Cap, 0.4 MG PO HS, (Reported) Ticagrelor 90 Mg Tablet, 90 MG PO BID Prescribed by: JANELLE CARRIZALES on 10/04/18 1117 Patient Home Medication List Home Medication List Reviewed: Yes Review of Systems Review of Systems Constitutional: No chills, No diaphoresis Eyes: Denies Blindness, Denies Drainage Ears, Nose, Mouth, Throat: denies ear pain, denies ear discharge Respiratory: No cough, No short of breath Cardiovascular: No chest pain, No edema Gastrointestinal: No abdominal pain, No constipation, No diarrhea; nausea, vomiting Genitourinary: No discharge, No dysuria Musculoskeletal: No back pain, No joint pain Skin: No pruritus, No rash Psychiatric/Neurological: See HPI, Cognitive Dysfunction; Denies Headache All Other Systems Reviewed Negative Unless Noted: Yes Past Hdivvsj-Kxyryo-Fozdih Hx Patient Social History Alcohol Use: Denies Use Recreational Drug Use: No Smoking Status: Never a Smoker 2nd Hand Smoke Exposure: No Recent Foreign Travel: No Contact w/Someone Who Travel: No Recent Hopitalizations: No Immunizations Up To Date Date of Pneumonia Vaccine: Oct 03, 2016 Date of Influenza Vaccine: Nov 05, 2017 Seasonal Allergies Seasonal Allergies: No Past Medical History Surgeries: Yes (R kidney tumor removed, stents x8 total, neck sx, back sx) Coronary Stent, Gallbladder Respiratory: No Cardiac: Yes (stents x8) Coronary Artery Disease, High Cholesterol, Hypertension, Irregular Heartbeat Neurological: No Reproductive Disorders: No Genitourinary: Yes (hx benign kidney tumor removed) Benign Prostatic Hyperpl Gastrointestinal: Yes Gastroesophageal Reflux Musculoskeletal: Yes (chronic lower extremity weakness) Chronic Back Pain Endocrine: Yes Diabetes, Non-Insulin dep HEENT: Yes Cataract Cancer: Yes Kidney Did You Recieve Any Treatments: Yes What Type of Treatment Did You: Surgical Intervention Psychosocial: Yes (chronic fatique) Anxiety Integumentary: No Blood Disorders: No Family Medical History No Pertinent Family Hx Physical Exam Vital Signs Vital Signs - First Documented Capillary Refill : Height, Weight, BMI Height: 5'10.00" Weight: 205lbs. 0.0oz. [id number]; 29.4 BMI Method:Stated General Appearance: WD/WN, no apparent distress HEENT: PERRL/EOMI, normal ENT inspection, TMs normal, pharynx normal Neck: full range of motion, normal inspection Respiratory: lungs clear, normal breath sounds, no respiratory distress, no accessory muscle use Cardiovascular: normal peripheral pulses, regular rate, rhythm Peripheral Pulses: 2+ Dorsalis Pedis (R), 2+ Left Dors-Pedis (L), 2+ Radial Pulses (R), 2+ Radial Pulses (L) Gastrointestinal: normal bowel sounds, non tender, soft Extremities: normal range of motion, non-tender, normal capillary refill Neurologic/Psychiatric: kidney puller II-XII nml as tested, no motor/sensory deficits, alert, normal mood/affect, oriented x 3 Crainal Nerves: normal hearing, normal speech, PERRL Coordination/Gait: normal finger to nose Motor/Sensory: no motor deficit, no sensory deficit, no pronator drift Skin: normal color, warm/dry Stroke Onset of Symptoms Date of Onset of Symptoms: Dec 16, 2018 Time of Symptom Onset: 20:30 Onset of Symptoms: Yes Symptoms onset unknown: No NIH Stroke Scale Assessment Select: Initial Level of Consciousness: 0=Alert (0), Level of Consciousness- Questions: 0=Answers both month/age (0), LOC Commands: 0=Performs both tasks (0), Gaze: Normal (0), Visual Hawk: 0=No visual loss (0), Facial Movement (Facial Paresis): 0=Normal symmetrical mnt (0), Motor Function-Arms Right: 0=No drift (0), Motor Function-Arms Left: 0=No drift (0), Motor Function-Legs Right: 0=No drift (0), Motor Function-Legs Left: 0=No drift (0), Limb Ataxia: 0=Absent (0), Sensory: 0=Normal:no loss (0), Best Language: 0=No aphasia (0), Dysarthria: 0=Normal (0), Extinction & Inattention: 0=No abnormality (0), Total: 0 Stroke Thrombolytic Exclusion Age 18 or Over: Yes Acute intenal hemorrhage: No History of CVA: No Uncontrolled Coagulation Defec: No Intracranial Hemorrhage: No Severe Hypertension: No GI or Bleed: No Subarachnoid Hemorrhage: No Intracranial Neoplasm/Aneurysm: No Oral Anticoagulants: No Surgery or Trauma: No Puncture of Non-Compressible V: No Recent CPR: No Diabetic Hemorrhagic Retinopat: No Organ Biopsy: No Recent Obstetric Delivery: No Glucose: No Significant Hepatic Dysfunctio: No NIH Stoke Scale >22: No Bacterial Endocarditis: No Pericarditis: No Improving Symptoms: Yes Platelets: No TPA Contraindication: Yes (inadequate NIH) IV - TPa Received IV - TPa Procedure Performed?: No Progress/Results/Core Measures Results/Orders Lab Results Laboratory Tests Test 12/16/18 21:35 12/16/18 21:36 12/16/18 23:50 Range/Units White Blood Count 7.7 4.3-11.0 10^3/uL Red Blood Count 4.89 4.35-5.85 10^6/uL Hemoglobin 14.9 13.3-17.7 G/DL Hematocrit 44 40-54 % Mean Corpuscular Volume 91 80-99 FL Mean Corpuscular Hemoglobin 31 25-34 PG Mean Corpuscular Hemoglobin Concent 34 32-36 G/DL Red Cell Distribution Width 13.6 10.0-14.5 % Platelet Count 186 130-400 10^3/uL Mean Platelet Volume 10.8 H 7.4-10.4 FL Neutrophils (%) (Auto) 70 42-75 % Lymphocytes (%) (Auto) 17 12-44 % Monocytes (%) (Auto) 10 0-12 % Eosinophils (%) (Auto) 3 0-10 % Basophils (%) (Auto) 0 0-10 % Neutrophils # (Auto) 5.4 1.8-7.8 X 10^3 Lymphocytes # (Auto) 1.3 1.0-4.0 X 10^3 Monocytes # (Auto) 0.7 0.0-1.0 X 10^3 Eosinophils # (Auto) 0.2 0.0-0.3 10^3/uL Basophils # (Auto) 0.0 0.0-0.1 10^3/uL Prothrombin Time 12.9 12.2-14.7 SEC INR Comment 0.9 0.8-1.4 Activated Partial Thromboplast Time 28 24-35 SEC D-Dimer 0.47 0.00-0.49 UG/ML Sodium Level 140 135-145 MMOL/L Potassium Level 4.0 3.6-5.0 MMOL/L Chloride Level 104 98-107 MMOL/L Carbon Dioxide Level 19 L 21-32 MMOL/L Anion Gap 17 H 5-14 MMOL/L Blood Urea Nitrogen 21 H 7-18 MG/DL Creatinine 1.73 H 0.60-1.30 MG/DL Estimat Glomerular Filtration Rate 39 BUN/Creatinine Ratio 12 Glucose Level 128 H 70-105 MG/DL Calcium Level 9.6 8.5-10.1 MG/DL Corrected Calcium 9.4 8.5-10.1 MG/DL Total Bilirubin 0.4 0.1-1.0 MG/DL Aspartate Amino Transf (AST/SGOT) 29 5-34 U/L Alanine Aminotransferase (ALT/SGPT) 45 0-55 U/L Alkaline Phosphatase 73 40-136 U/L Troponin I < 0.028 <0.028 NG/ML Total Protein 7.0 6.4-8.2 GM/DL Albumin 4.3 3.2-4.5 GM/DL Glucometer 126 H 70-110 MG/DL Urine Color YELLOW Urine Clarity CLEAR Urine pH 6.0 5-9 Urine Specific [place] 1.010 L 1.016-1.022 Urine Protein NEGATIVE NEGATIVE Urine Glucose (UA) NEGATIVE NEGATIVE Urine Ketones NEGATIVE NEGATIVE Urine Nitrite NEGATIVE NEGATIVE Urine Bilirubin NEGATIVE NEGATIVE Urine Urobilinogen 0.2 < = 1.0 MG/DL Urine Leukocyte Esterase NEGATIVE NEGATIVE Urine RBC (Auto) NEGATIVE NEGATIVE Urine RBC NONE /HPF Urine WBC NONE /HPF Urine Squamous Epithelial Cells RARE /HPF Urine Crystals NONE /LPF Urine Bacteria TRACE /HPF Urine Casts NONE /LPF Urine Mucus NEGATIVE /LPF Urine Culture Indicated NO My Orders Orders - SOURAV GRANADOS Ct Head Wo (12/16/18 ) Ondansetron Injection (Zofran Injectio (12/16/18 21:47) Cbc With Automated Diff (12/16/18 21:49) Protime With Inr (12/16/18 21:49) Partial Thromboplastin Time (12/16/18 21:49) Comprehensive Metabolic Panel (12/16/18 21:49) Fibrin Degradation Products (12/16/18 21:49) Troponin I (12/16/18 21:49) Ua Culture If Indicated (12/16/18 21:49) Chest 1 View, Ap/Pa Only (12/16/18 21:49) Ekg Tracing (12/16/18 21:49) Accucheck Stat ONCE (12/16/18 21:49) Ed Iv/Invasive Line Start (12/16/18 21:49) Ed Iv/Invasive Line Start (12/16/18 21:49) Vital Signs Stroke Patient Q15M (12/16/18 21:49) O2 (12/16/18 21:49) Intake & Output 06,14,22 (12/16/18 21:49) Monitor-Rhythm Ecg Trace Only (12/16/18 21:49) Dysphagia Screening Tool (12/16/18 21:49) Ondansetron Injection (Zofran Injectio (12/16/18 22:00) Ct Angio Head/Neck (12/16/18 22:15) Ed Iv/Invasive Line Start (12/16/18 22:15) Ns Iv 500 Ml (Sodium Chloride 0.9%) (12/16/18 22:15) Iohexol Injection (Omnipaque 350 Mg/Ml 1 (12/16/18 23:00) Received Contrast (Hold Metformin- Contr (12/16/18 23:00) Ns (Ivpb) (Sodium Chloride 0.9% Ivpb Bag (12/16/18 23:00) Medications Given in ED Current Medications Medications Dose Ordered Sig/Osbaldo Route Start Time Stop Time Status Last Admin Dose Admin Iohexol 75 ml ONCE ONCE IV 12/16/18 23:00 12/16/18 23:01 DC 12/16/18 23:01 75 ML Ondansetron HCl 8 mg ONCE ONCE IVP 12/16/18 22:00 12/16/18 22:01 DC 12/16/18 21:51 8 MG Sodium Chloride 100 ml ONCE ONCE IV 12/16/18 23:00 12/16/18 23:01 DC 12/16/18 23:01 80 ML Sodium Chloride 500 ml @ 0 mls/hr Q0M ONCE IV 12/16/18 22:15 12/16/18 22:16 DC 12/16/18 22:45 500 MLS/HR Vital Signs/I&O 12/16/18 12/16/18 21:29 21:29 Pulse 80 Resp 18 B/P (MAP) 198/118 (144) Pulse Ox 97 97 O2 Delivery Room Air Room Air Progress Progress Note #1: Time: 22:01 Progress Note Initial blood sugar 126, EKG doesn't show any clear ST elevation VA but does have some [address] elevation in leads V1 and V2. Findings are unchanged from September 2018. Progress Note #2: Time: 23:30 Progress Note Patient still has an NIH of 0 without neurologic findings. No confusion. He is oriented 4. He had a conversation about the risks, benefits and alternatives to doing a contrasted CT of his head and neck to rule out a active vessel lesion in his head and after he had a discussion with his family he elected to do the CT angiogram of his head and neck. Initial ECG Impression Date: Dec 16, 2018 Initial ECG Impression Time: 21:35 Initial ECG Rate: 83 Initial ECG Rhythm: Normal Sinus Initial ECG Intervals: Normal Initial ECG Impression: Normal Initial ECG Comparisson: Unchanged Comment No ST elevation or depression. Findings unchanged from September 2018. Diagnostic Imaging Diagonstic Imaging: Xray Plain Films/CT/US/NM/MRI: chest (1v) Comments No acute cardiopulmonary processes noted on one view portable chest x-ray. Reviewed: Reviewed by Me Diagonstic Imaging: CT (No IV Contrast) Plain Films/CT/US/NM/MRI: head Comments NAME: CHARO FRANCO [facility] REC#: [id number] PT STATUS: REG ER : 1940 PHYSICIAN: SOURAV GRANADOS MD ADMIT DATE: 12/16/18/ER Draft POSDate of Exam:12/16/18 CT HEAD WO PROCEDURE: CT head without contrast. TECHNIQUE: Multiple contiguous axial images were obtained through the brain without the use of intravenous contrast. Auto Exposure Controls were utilized during the CT exam to meet ALARA standards for radiation dose reduction. INDICATION: Evaluate for stroke. COMPARISON: 02/01/2018 FINDINGS: No large acute territorial ischemia, mass, or hemorrhage. Chronic microvascular disease is seen in the periventricular and subcortical white matter. The ventricles and cortical sulci are prominent, consistent with generalized volume loss. The basilar cisterns are patent and unremarkable. The calvarium is intact. Retained secretions are seen in the bilateral sphenoid sinuses. IMPRESSION: 1. No large acute territorial ischemia, mass, or hemorrhage. 2. Chronic microvascular disease. 3. Generalized volume loss. 4. Paranasal sinus disease involving the sphenoid sinuses. Dictated on workstation # [id number] Dict: 12/16/188 Trans: 12/16/182152 [facility] [id number] Interpreted by: KESHAV GA DO Electronically signed by: Reviewed: Reviewed by Me Diagonstic Imaging: CT (angiogram) Plain Films/CT/US/NM/MRI: head (neck) Comments CT angiogram of the head: No vessel cutoff, flow significant stenosis or aneurysm identified. left [employer], anatomic variant. CT angiogram neck: No flow significant stenosis or dissection. Dominant left vertebral artery anatomic variant. Gilbert artifact from the cervical fusion. Reviewed: Reviewed Night Tonny Study, Reviewed by Me Consults : Consults Notes Dr Quintero, Stroke Neurologist, [facility]: 2200; We discussed the case EKG labs sugar and CT scan and story. The neurologist agrees that this favors a TIA. She would be permissible with blood pressure 180/[address] angiogram rules out significant stenosis. Then she would do a typical TIA workup with statins, blood pressure management and nonemergent echo and MRI. She also would recommend that he would be on dual antiplatelet if there is significant atherosclerotic disease in the head or neck. Departure Communication (Admissions) Time/Spoke to Admitting Phy: 00:18 Discussed case lab imaging findings with Dr. Grant and she agrees to observe the patient overnight for TIA workup. Time/Spoke to Consulting Phy: 00:20 Discussed case lab imaging findings with Dr. Stafford. Impression Primary Impression: TIA (transient ischemic attack) Additional Impression: Unstable angina Disposition: ADMITTED INPATIENT Condition: Stable Admissions Decision to Admit Reason: Admit from ER (General) Decision to Admit/Date: Dec 17, 2018 Time/Decision to Admit Time: 00:10 Departure-Patient Inst. Referrals: MARIA FERNANDA GRANT DO (PCP/Family) Primary Care Physician SOURAV GRANADOS Dec 16, 2018 21:54 POS
[2018-12-16] MEDS ORDERED: ONDANSETRON 4 MG/2 ML (SDV) Z0FRAN IVP ONE (22:00)
[2018-12-16 22:08] LABS: FIBRIN DEGRADATION PRODUCTS 0.47 UG/ML (0.00-0.49); INR 0.9 (0.8-1.4); PROTHROMBIN TIME PATIENT 12.9 SEC (12.2-14.7)
[2018-12-16 22:09] LABS: ALANINE AMINOTRANSFERASE 45 U/L (0-55); ALBUMIN 4.3 GM/DL (3.2-4.5); ALKALINE PHOSPHATASE 73 U/L (40-136); BILIRUBIN,TOTAL 0.4 MG/DL (0.1-1.0); BUN/CREATININE RATIO 12; CALCIUM 9.6 MG/DL (8.5-10.1); CARBON DIOXIDE 19 MMOL/L (21-32); CHLORIDE 104 MMOL/L (98-107); CREATININE SERUM 1.73 MG/DL (0.60-1.30); GFR ESTIMATED 39; GLUCOSE 128 MG/DL (70-105); SODIUM 140 MMOL/L (135-145)
[2018-12-16] MEDS ORDERED: NS IV 500 ML 500 ML IV ONE (22:15)
[2018-12-16] MEDS ORDERED: IOHEXOL 350 MG/ML 100 ML (OMNIPAQUE 350) VIAL IV ONE (23:00)
[2018-12-16] MEDS ORDERED: NS 100 ML (IVPB) BAG IV ONE (23:00)
[2018-12-16] MEDS ORDERED: HOLD METFORMIN - RECEIVED CONTRAST 20 ML VIAL IV SCH (23:00)
[2018-12-17] VITALS (10 sets, daily range): BP systolic 132–200; BP diastolic 74–104
[2018-12-17 00:04] LABS: BILIRUBIN,URINE NEGATIVE (NEGATIVE); CLARITY,URINE CLEAR; COLOR,URINE YELLOW; GLUCOSE, URINE (UA) NEGATIVE (NEGATIVE); KETONES,URINE NEGATIVE (NEGATIVE); LEUKOCYTE ESTERASE ,URINE NEGATIVE (NEGATIVE); NITRITE,URINE NEGATIVE (NEGATIVE); PROTEIN,URINE NEGATIVE (NEGATIVE)
--- NOTE | 2018-12-17 00:08 | NUR ---
PT REQUESTED ICE CHIPS, THIS NURSE WILL CONSULT PROVIDER.
[2018-12-17 00:31] LABS: BACTERIA,URINE TRACE /HPF; SQUAMOUS EPITHELIAL CELL,UR RARE /HPF
[2018-12-17] MEDS ORDERED: BISACODYL 10 MG SUPP (DULCOLAX) PR PRN (02:00)
[2018-12-17] MEDS ORDERED: ZOLPIDEM 5 MG (AMBIEN) TAB PO PRN (02:00)
[2018-12-17] MEDS ORDERED: ONDANSETRON 4 MG/2 ML (SDV) Z0FRAN IV PRN (02:00)
[2018-12-17] MEDS ORDERED: ACETAMINOPHEN 325 MG TABLET PO PRN (02:00)
[2018-12-17] MEDS ORDERED: MILK OF MAGNESIA 400 MG/5 ML 30 ML UDC PO PRN (02:00)
[2018-12-17 03:29] LABS: BASOPHILS % (AUTO) 0 % (0-10); EOSINOPHILS # (AUTO) 0.1 10^3/uL (0.0-0.3); EOSINOPHILS % (AUTO) 2 % (0-10); HEMATOCRIT 42 % (40-54); HEMOGLOBIN 13.9 G/DL (13.3-17.7); LYMPHOCYTES # (AUTO) 1.1 X 10^3 (1.0-4.0); LYMPHOCYTES % (AUTO) 12 % (12-44); MEAN CORPUSCULAR HEMOGLOBIN 31 PG (25-34); MEAN CORPUSCULAR HGB CONC 33 G/DL (32-36); MEAN CORPUSCULAR VOLUME 91 FL (80-99); MEAN PLATELET VOLUME 11.2 FL (7.4-10.4); MONOCYTES # (AUTO) 0.8 X 10^3 (0.0-1.0); MONOCYTES % (AUTO) 8 % (0-12); NEUTROPHILS # (AUTO) 7.2 X 10^3 (1.8-7.8); NEUTROPHILS % (AUTO) 78 % (42-75); PLATELET COUNT 155 10^3/uL (130-400); RED CELL DISTRIBUTION WIDTH 13.6 % (10.0-14.5); WHITE BLOOD COUNT 9.3 10^3/uL (4.3-11.0)
[2018-12-17 03:52] LABS: ALBUMIN 3.8 GM/DL (3.2-4.5); BILIRUBIN,TOTAL 0.4 MG/DL (0.1-1.0); CALCIUM 8.9 MG/DL (8.5-10.1); CREATININE SERUM 1.62 MG/DL (0.60-1.30); POTASSIUM 4.3 MMOL/L (3.6-5.0); TOTAL PROTEIN 6.2 GM/DL (6.4-8.2)
[2018-12-17] MEDS: inSUlin ASPART (NovoLOG) 1 UNIT/0.01 ML (CHARGE PER UNIT) SC SCH ×4 (04:58→21:08)
--- NOTE | 2018-12-17 05:19 | Diagnostic Imaging Report ---
INDICATION: Chest pain COMPARISON: 10/02/2018 FINDINGS: Single frontal view of the chest demonstrates normal heart size and pulmonary vascularity. The lungs are well aerated and clear. No large pleural effusion or pneumothorax is seen. The visualized osseous structures show no acute abnormalities. IMPRESSION: 1. No acute cardiopulmonary process. Dictated by: Dictated on workstation # [id number]
[2018-12-17] MEDS: lisINopril 20 MG (PRINIVIL) TABLET PO SCH (08:07)
[2018-12-17] MEDS: amLODIPine 5 MG (NORVASC) TAB PO SCH (08:07)
[2018-12-17] MEDS: PANTOPRAZOLE 40 MG (PROTONIX) TAB PO SCH (08:07)
[2018-12-17] MEDS: meTOprolol SUCCINATE 100 MG (TOPROL XL) TAB PO SCH (08:07)
[2018-12-17] MEDS: TICAGRELOR 90 MG TABLET (BRILINTA) PO SCH ×2 (08:08→19:49)
[2018-12-17] MEDS: ASPIRIN 81 MG CHEW (CHILDREN'S ASA) PO SCH (08:08)
[2018-12-17] MEDS: DOCUSATE SODIUM 100 MG (COLACE) CAP PO SCH (08:08)
--- NOTE | 2018-12-17 08:49 | Consultation-Cardiology ---
HPI-Cardiology Cardiology Consultation: Date of Consultation 12/17/18 Date of Admission Attending Physician Caterina Grant DO Admitting Physician Caterina Grant DO Consulting Physician Jeramy STAFFORD MD HPI: Time Seen by a Provider: 09:00 Chief Complaint: TIA, chest pressure This is a 78-year-old gentleman who is a patient on mine from the office. He has previous history of CAD and PCI. Most recent PCI was to the mid RCA, in- stent restenosis and possible stent fracture in September 2018 with a drug-eluting stent. He has history of diabetes, hypertension and hyperlipidemia. He presented yesterday after being confused and having slurred speech. He also had mild chest pressure. When I saw him this morning he was not complaining of any cardiac symptoms. His speech was much better. Working diagnosis is TIA. 2 sets of cardiac enzymes are negative. Review of Systems-Cardiology Review of Systems Constitutional: As described under HPI; No As described under HPI, No no symptoms reported, No chills, No fever, No lightheadedness Eyes: No As described under HPI, No no symptoms reported, No blindness, No blurred vision, No contact lenses, No drainage, No decreased acuity, No foreign body sensation, No pain, No vision change Ears/Nose/Throat: No As described under HPI, No no symptoms reported, No chronic hearing loss, No ear discharge, No ear pain, No nasal drainage, No ulcerations Respiratory: No no symptoms reported; As described under HPI; No As described under HPI, No cough, No orthopnea, No shortness of breath, No SOB with excertion Cardiovascular: No no symptoms reported; As described under HPI; No As described under HPI; chest pain; No edema, No irregular heart rate, No lightheadedness, No palpitations Gastrointestinal: No no symptoms reported, No As described under HPI, No abdomen distended, No abdominal pain, No blood streaked bowels, No constipation, No diarrhea, No nausea, No vomiting, No stool coloration changes Genitourinary: No As described under HPI, No burning, No dysuria, No discharge, No frequency, No flank pain, No hematuria, No urgency Skin: No rash, No skin related problems, No ulcerations Psychiatric/Neurological: As described under HPI; No anxiety, No depression, No seizure, No focal weakness, No syncope Hematologic: No bleeding abnormalities All Other Systems Reviewed Negative Unless Noted: Yes AFH-Yfeqxz-Qcaeai Hx Patient Social History Alcohol Use: Denies Use Recreational Drug Use: No Smoking Status: Never a Smoker 2nd Hand Smoke Exposure: No Recent Foreign Travel: No Recent Infectious Disease Expo: No Hospitalization with Isolation: Denies Immunizations Up To Date Tetanus Booster (TDap): Unknown Date of Pneumonia Vaccine: Oct 03, 2016 Date of Influenza Vaccine: Nov 05, 2017 Past Medical History PMH As described under Assessment. Allergies and Home Medications Allergies Coded Allergies: Sulfa (Sulfonamide Antibiotics) (Unverified Allergy, Unknown, 07/24/17) Home Medications Aspirin 81 Mg Tablet.dr, 81 MG PO HS, (Reported) Atorvastatin Calcium 80 Mg Tablet, 40 MG PO HS, (Reported) TAKES 1/2 (80MG) TABLET Bupropion HCl 150 Mg Tab.er.24h, 150 MG PO DAILY, (Reported) Eszopiclone 3 Mg Tablet, 3 MG PO HS, (Reported) Finasteride 5 Mg Tablet, 5 MG PO HS, (Reported) Glimepiride 4 Mg Tablet, 4 MG PO BID, (Reported) Lisinopril 20 Mg Tablet, 20 MG PO HS, (Reported) Metformin HCl 1,000 Mg Tablet, 1,000 MG PO 1200,2100, (Reported) Metoprolol Succinate 100 Mg Tab.er.24h, 100 MG PO BID, (Reported) Pantoprazole Sodium 40 Mg Tablet.dr, 40 MG PO HS, (Reported) Tamsulosin HCl 0.4 Mg Cap, 0.4 MG PO HS, (Reported) Ticagrelor 90 Mg Tablet, 90 MG PO BID, (Reported) Patient Home Medication List Home Medication List Reviewed: Yes Physical Exam-Cardiology Physical Exam Vital Signs/I&O 12/17/18 12/17/18 12/17/18 12/17/18 01:16 01:32 01:45 02:00 Temp 37.0 36.0 Pulse 76 77 78 83 Resp 21 14 15 B/P (MAP) 167/89 (144) 200/104 187/91 (123) Pulse Ox 96 97 97 O2 Delivery Room Air Room Air Room Air 12/17/18 12/17/18 12/17/18 12/17/18 02:00 02:30 04:00 04:00 Pulse 72 87 Resp 20 17 B/P (MAP) 152/74 (100) 132/81 (98) Pulse Ox 97 95 O2 Delivery Room Air Room Air Room Air Room Air 12/17/18 12/17/18 12/17/18 12/17/18 06:56 07:52 08:00 08:00 Temp 36.0 Pulse 86 80 Resp 24 B/P (MAP) 143/83 (103) Pulse Ox 95 O2 Delivery Room Air Room Air 12/17/18 09:00 Pulse Ox 95 O2 Delivery Room Air Capillary Refill : Less Than 3 Seconds Constitutional: appears stated age, AAO x 3; No apparent distress; well-devel oped, well-nourished HEENT: PERRL; No discharge; hearing is well preserved, oral hygience is good; No ulceration, No xanthelasmas are seen Neck: No carotid bruit; carotid pulses are 2 + bilaterally Respiratory: chest is bilaterally symmetric, lungs clear to auscultation Cardiovascular: regular rate-rhythm, S1 and S2 Gastrointestinal: soft, audible bowel sounds; No spleenomegaly Rectal: deferred Extremities: normal range of motion, non-tender, normal inspection; No clubbing, No cyanosis; no lower extremity edema bilateral; No significant edema Neurologic/Psychiatric: alert, normal mood/affect, oriented x 3, power is 5/5 both on sides Skin: No rash, No ulcerations Data Review Labs Laboratory Tests 12/16/18 21:35: White Blood Count 7.7, Red Blood Count 4.89, Hemoglobin 14.9, Hematocrit 44, Mean Corpuscular Volume 91, Mean Corpuscular Hemoglobin 31, Mean Corpuscular Hemoglobin Concent 34, Red Cell Distribution Width 13.6, Platelet Count 186, Mean Platelet Volume 10.8H, Neutrophils (%) (Auto) 70, Lymphocytes (%) (Auto) 17, Monocytes (%) (Auto) 10, Eosinophils (%) (Auto) 3, Basophils (%) (Auto) 0, Neutrophils # (Auto) 5.4, Lymphocytes # (Auto) 1.3, Monocytes # (Auto) 0.7, Eosinophils # (Auto) 0.2, Basophils # (Auto) 0.0, Prothrombin Time 12.9, INR Comment 0.9, Activated Partial Thromboplast Time 28, D-Dimer 0.47, Sodium Level 140, Potassium Level 4.0, Chloride Level 104, Carbon Dioxide Level 19L, Anion Gap 17H, Blood Urea Nitrogen 21H, Creatinine 1.73H, Estimat Glomerular Filtration Rate 39, BUN/Creatinine Ratio 12, Glucose Level 128H, Calcium Level 9.6, Corrected Calcium 9.4, Total Bilirubin 0.4, Aspartate Amino Transf (AST/SGOT) 29, Alanine Aminotransferase (ALT/SGPT) 45, Alkaline Phosphatase 73, Troponin I < 0.028, Total Protein 7.0, Albumin 4.3 12/16/18 21:36: Glucometer 126H 12/16/18 23:50: Urine Color YELLOW, Urine Clarity CLEAR, Urine pH 6.0, Urine Specific [place] 1. 010L, Urine Protein NEGATIVE, Urine Glucose (UA) NEGATIVE, Urine Ketones NEGATIVE, Urine Nitrite NEGATIVE, Urine Bilirubin NEGATIVE, Urine Urobilinogen 0.2, Urine Leukocyte Esterase NEGATIVE, Urine RBC (Auto) NEGATIVE, Urine RBC NONE, Urine WBC NONE, Urine Squamous Epithelial Cells RARE, Urine Crystals NONE, Urine Bacteria TRACE, Urine Casts NONE, Urine Mucus NEGATIVE, Urine Culture Indicated NO 12/17/18 03:20: White Blood Count 9.3, Red Blood Count 4.56, Hemoglobin 13.9, Hematocrit 42, Mean Corpuscular Volume 91, Mean Corpuscular Hemoglobin 31, Mean Corpuscular Hemoglobin Concent 33, Red Cell Distribution Width 13.6, Platelet Count 155, Mean Platelet Volume 11.2H, Neutrophils (%) (Auto) 78H, Lymphocytes (%) (Auto) 12, Monocytes (%) (Auto) 8, Eosinophils (%) (Auto) 2, Basophils (%) (Auto) 0, Neutrophils # (Auto) 7.2, Lymphocytes # (Auto) 1.1, Monocytes # (Auto) 0.8, Eosinophils # (Auto) 0.1, Basophils # (Auto) 0.0, Sodium Level 137, Potassium Level 4.3, Chloride Level 103, Carbon Dioxide Level 22, Anion Gap 12, Blood Urea Nitrogen 20H, Creatinine 1.62H, Estimat Glomerular Filtration Rate 42, BUN/Creatinine Ratio 12, Glucose Level 174H, Calcium Level 8.9, Corrected Calcium 9.1, Total Bilirubin 0.4, Aspartate Amino Transf (AST/SGOT) 24, Alanine Aminotransferase (ALT/SGPT) 36, Alkaline Phosphatase 61, Troponin I < 0.028, Total Protein 6.2L, Albumin 3.8, Triglycerides Level 192H, Cholesterol Level 132, LDL Cholesterol Direct 73, VLDL Cholesterol 38, HDL Cholesterol 29L 12/17/18 11:10: Glucometer 188H ECG Impression ECG Initial ECG Rhythm: Normal Sinus Initial ECG Impression: Nonspecific Changes A/P-Cardiology Assessment/Admission Diagnosis TIA, Chest pressure, History of CAD, Diabetes, Hypertension, Hyperlipidemia Plan TIA, already on dual antiplatelet therapy. Telemetry 48 [address]. Carotid ultrasound or CT angiography to rule out significant carotid disease. Echocardiogram with bubble study to rule out intracardiac shunting. If all of the above is negative, consider working diagnosis is cryptogenic stroke and may require implantable loop recorder. Chest pressure, troponin 2 is negative. EKG on admission did not show any acute ST-T wave abnormalities. Nuclear stress test this afternoon. History of CAD, recent PCI to mid RCA with drug-eluting stent in September 2018. Continue dual antiplatelet therapy. Diabetes, deferred to the primary team area Hypertension, continue outpatient medications. Hyperlipidemia, continue high-dose statin therapy. Thank you for your consultation. Please call me if you have any questions. Jose Stafford MD, FACP, FACC, FSCAI, FHRS, CCDS Interventional Cardiology Cardiac Electrophysiology Vascular Medicine and Endovascular Interventions Clinical Quality Measures DVT/VTE Risk/Contraindication: Risk Factor Score Per Nursin RFS Level Per Nursing on Admit: 2=Moderate Stroke: Date of last known well: Dec 16, 2018 Time of last known well: 20:30 Symptoms onset unknown: Jeramy Quan MD Dec 17, 2018 08:49 POS
[2018-12-17] MEDS ORDERED: GLIM4TAB PO (08:59)
[2018-12-17] MEDS ORDERED: METO-395 PO (08:59)
[2018-12-17] MEDS ORDERED: TICA90TA PO (08:59)
[2018-12-17] MEDS ORDERED: METF-399 PO (08:59)
--- NOTE | 2018-12-17 09:05 | NUR ---
SPOKE WITH THE PATIENT ABOUT HIS MEDICATIONS. HE HAD HIS BOTTLE WITH HIM AND WE WENT OVER THE EXT MED HX. HIS METOPROLOL WAS RECENTLY INCREASED TO 100MG BID. HE STATES HE HAS BEEN TAKING TWO OF THE 50MG BID UNTIL HE GETS THE NEW ONE PICKED UP. HE FILLED LIPITOR #90 09-09-18 HOWEVER HE STATES HE ONLY TAKES 1/2 TABLET DAILY. HE TAKES ASPIRIN 81MG DAILY OTC. HE DID NOT HAVE HIS BRILINTA OR BUPROPION WITH HIM BUT, HE STATES HE NEEDS TO PICK THEM UP FROM THE PHARMACY. HE HAS A BOTTLE OF MAGNESIUM BUT STATES HE IS NOT TAKING IT. HE STOPPED THAT AND VITAMIN B 12 AND VITAMIN D BECAUSE THEY WERE NOT HELPING.
[2018-12-17] MEDS ORDERED: REGADENOSON 0.4 MG/5 ML SYR (LEXISCAN) IV ONE ×2 (10:00→11:51)
--- NOTE | 2018-12-17 10:19 | NUR ---
Pt is Hindu. Doormaker offered prayer..
[2018-12-17] MEDS ORDERED: CATHETER FLUSH 10 ML SYR IV PRN (11:00)
--- NOTE | 2018-12-17 11:08 | Diagnostic Imaging Report ---
PROCEDURE: CT angiography of the head and CT angiography of the neck with and without contrast. TECHNIQUE: Contiguous noncontrast images were obtained from the skull base through the vertex. After intravenous contrast administration, helical CT angiography of the neck was performed. Source data was reformatted into 3D MIP projections. Delayed post contrast acquisition was also obtained. Auto Exposure Controls were utilized during the CT exam to meet ALARA standards for radiation dose reduction. INDICATION: Acute onset balance disorder. Dysarthria. COMPARISON: Noncontrast CT head from earlier this same day. FINDINGS: CTA NECK: The included portions of the aortic arch are unremarkable. The origins of the major arch vessels are unremarkable. There is borderline moderate narrowing at the origin of the right common carotid artery. This, however, may be artifactual and related to tortuosity at its origin. The bilateral common carotid arteries are otherwise normal in course and caliber. There is mild to moderate calcified atherosclerosis of the bilateral carotid bulbs extending into the bilateral internal carotid arteries. This results in relative narrowing of the proximal left internal carotid artery but no focal hemodynamically significant stenosis is identified. Mild to moderate calcified atherosclerosis of the distal intracranial portions of the bilateral intracarotid arteries is also identified but there is no focal significant stenosis. Within the posterior circulation, the left vertebral artery appears to be slightly dominant. There is mild obscuration of the bilateral proximal vertebral arteries secondary to metallic beam hardening artifact from the patient's cervical fusion hardware but the vertebral arteries are otherwise patent without evidence of dissection or intraluminal thrombosis. The osseous structures of the cervical spine show age-related degenerative changes and post surgical changes of previous anterior fusion. No acute osseous abnormalities are identified. The included portions of the lung apices are clear. 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 This, however, is likely on a congenital or developmental basis. Otherwise, the bilateral anterior and middle cerebral arteries show normal enhancement. There is no evidence of aneurysm, vascular malformation, or intraluminal thrombosis. Within the posterior circulation, there is normal appearance of the basilar artery. There also appears to be absence of the left P1 segment. The left posterior communicating artery, however, is patent. The findings are consistent with persistent origin of the left [employer]. There is otherwise normal opacification of the bilateral superior cerebellar and posterior cerebral arteries without evidence of intraluminal thrombosis, aneurysm, or vascular malformation. CT HEAD: Post contrast images show no abnormal areas of enhancement. There is no new mass effect or midline shift. The ventricles and cortical sulci are otherwise diffusely prominent, consistent with underlying age related parenchymal volume loss. There are scattered and confluent areas of decreased attenuation within the periventricular and subcortical deep white matter, consistent with chronic small vessel ischemic changes. There is no new loss of esteban/white matter junction differentiation to suggest new acute territorial infarct. The bony calvarium is intact. The paranasal sinuses show moderate mucosal thickening of the right sphenoid sinus. The mastoid air cells are clear. IMPRESSION: 1. Mild to moderate scattered calcified atherosclerosis of the bilateral carotid bulbs and internal carotid arteries but no evidence of dissection, thrombosis, or hemodynamically significant stenosis. 2. 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 Again, these findings are likely on a congenital or developmental basis. 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 3. No evidence of intraluminal thrombosis, aneurysm, or vascular malformation involving the intracranial circulation. 4. No new acute intracranial abnormality. No CT evidence of acute infarct, mass, or hemorrhage. 5. Redemonstration of background chronic small vessel ischemic changes and age-related parenchymal volume loss. Dictated by: Dictated on workstation # [id number]
--- NOTE | 2018-12-17 11:22 | Physical Therapy Evaluation ---
PT Evaluation-General Medical Diagnosis Admission Date Dec 17, 2018 at 00:40 Medical Diagnosis: TIA Onset Date: Dec 17, 2018 Therapy Diagnosis Therapy Diagnosis: weakness, debility Height/Weight Height (Feet): 5 Height (Inches): 10.00 Weight (Pounds): 205 Weight (Ounces): 0.0 Precautions Precautions/Isolations: Standard Precautions Referral Physician: Rudy Reason for Referral: Evaluation/Treatment Medical History Pertinent Medical History: CAD, DM, HTN Current History ER secondary to confusion and slurring speech Reviewed History: Yes Social History Home: Single Level Current Living Status: Spouse PT Steps Into Home: 3 Prior Prior Level of Function SCALE: Activities may be completed with or without assistive devices. 9-Ekgdbgklya-zvumjpy completes the activity by him/herself with no assistance from a helper. 5-Set-up or Clean-up Assistance-helper sets up or cleans up; patient completes activity. [place] assists only prior to or following the activity. 4-Supervision or Touching Assistance-helper provides verbal cues and/or touching/steadying and/or contact guard assistance as patient completes activity. Assistance may be provided throughout the activity or intermittently. 3-Partial/Moderate Assistance-helper does LESS THAN HALF the effort. [place] lifts, holds or supports trunk or limbs, but provides less than half the effort. 2-Substantial/Maximal Assistance-helper does MORE THAN HALF the effort. [place] lifts or holds trunk or limbs and provides more than half the effort. 3-Fgjoaphrs-lgeptl does ALL the effort. Patient does none of the effort to complete the activity. Or, the assistance of 2 or more helpers is required for the patient to complete the activity. If activity was not attempted, code reason: 7-Patient Refused. 9-Not Applicable-not attempted and the patient did not perform the activity before the current illness, exacerbation or injury. 10-Not Attempted due to Environmental Limitations-(lack of equipment, weather restraints, etc.). 88-Not Attempted due to Medical Conditions or Safety Concerns. Bed Mobility: 6 Transfers (B,C,W/C): 6 Gait: 6 Stairs: 6 Indoor Mobility (Ambulation): Independent Stairs: Independent Prior Devices Use: None PT Evaluation-Current Subjective Patient agrees to PT at this time. Reports a headache but no other significant pain. Pain Numeric Pain Scale: 4 Location Body Site: Head Pain Description: Ache Objective Patient Orientation: Normal For Age Problem Solving: Good ROM/Strength ROM Lower Extremities WFL Strength Lower Extremities Grossly 4/5 Integumentary/Posture Integumentary See nursing notes Bowel Incontinence: No Bladder Incontinence: No Posture WFL Neuromuscular (Tone, Coordination, Reflexes) Grossly intact Sensory Vision: Functional Hearing: Functional Transfers Roll Left to Right (QC): 6 Lying to Sitting/Side of Bed(Q: 6 Sit to Stand (QC): 6 Gait Does the Patient Walk?: Yes Mode of Locomotion: Walk Anticipated Mode of Locomotion: Walk Walk 10 feet (QC): 6 Walk 50 ft with 2 Turns(QC): 4 Walk 150 ft (QC): 4 Distance: 200' Gait Assistive Device: FWW Comments/Gait Description CGA for longer distance, normal pace and pattern, slightly stiff gait. Balance Sitting Static: Normal Sitting Dynamic: Normal Standing Static: Normal Standing Dynamic: Normal Assessment/Needs Patient able to perform bed mobility and standing independently. Patient amb ulated with FWW CGA 200'. Nursing previously stated patient was sometimes unsteady on feet; unsteadiness not noted with CGA. Patient seated in recliner with legs elevated, reporting decreased headache with ambulation and position change. Rehab Potential: Fair PT Prison Goals Prison Goals PT Prison Goals Time Frame: Dec 24, 2018 Sit to Lying (QC): 6 Lying-Sitting on Side/Bed(QC): 6 Sit to Stand (QC): 6 Roll Left to Right (QC): 6 Chair/Mpa-we-Fnigh Xfer(QC): 6 Car Transfer (QC): 6 Does the Patient Walk: Yes Distance: 500' Walk 10 feet (QC): 6 Walk 10ft-Uneven Surface(QC): 6 Walk 50ft with 2 Turns (QC): 6 Walk 150 ft (QC): 6 Gait Assistive Device: FWW PT Plan Problem List Problem List: Activity Tolerance, Functional Strength, Safety, Balance, Gait, Transfer, Bed Mobility Treatment/Plan Treatment Plan: Continue Plan of Care Treatment Plan: Bed Mobility, Education, Functional Activity [place], Functional Strength, Gait, Safety, Therapeutic Exercise, Transfers Frequency: 6 times per week Estimated Hrs Per Day: .25 hour per day Patient and/or Family Agrees t: Yes Time/GCodes Time In: 953 Time Out: 1008 Total Billed Treatment Time: 15 Total Billed Treatment 1 visit EVL 15min KEEGAN,TRE PT Dec 17, 2018 11:21 POS
--- NOTE | 2018-12-17 13:15 | Diagnostic Imaging Report ---
PROCEDURE: MR imaging of the brain without contrast. TECHNIQUE: Multiplanar, multisequence MR imaging of the brain was performed without contrast. INDICATION: Memory problems. COMPARISON: CTA head and neck 12/16/2018. FINDINGS: Advanced generalized cerebral and cerebellar parenchymal volume loss. Advanced confluent T2 hyperintensities in the supratentorial white matter. No restricted water diffusion or hemosiderin deposition. Normal morphology of the major midline structures, sella, posterior fossa and cerebellopontine angle. No hydrocephalus or extra-axial fluid collections. Normal intracranial flow voids. The orbits are negative on this nondedicated exam. Marked mucosal thickening in the right sphenoid. The mastoids are clear. Normal bone marrow signal. IMPRESSION: 1. Advanced generalized parenchymal volume loss and chronic small vessel ischemic change. 2. No acute intracranial MRI findings. 3. Marked mucosal thickening in the right sphenoid sinus. Dictated by: Dictated on workstation # [id number]
--- NOTE | 2018-12-17 14:40 | Occupational Therapy Eval ---
OT Evaluation-General/PLF Medical Diagnosis Admission Date Dec 17, 2018 at 00:40 Medical Diagnosis: TIA Onset Date: Dec 17, 2018 Therapy Diagnosis Therapy Diagnosis: debility Height/Weight Height (Feet): 5 Height (Inches): 10.00 Weight (Pounds): 205 Weight (Ounces): 0.0 Precautions Precautions/Isolations: Standard Precautions Safety Interventions: None Referral Physician: Rudy Medical History Pertinent Medical History: CAD, DM, HTN Additional Medical History coronary stent, high cholesterol, irregular heartbeat, kidney tumor removal, neck surgery, back surgery, BPH, GERD, chronic back pain, chronic LE weakness, anxiety Reviewed History: Yes Social History Home: Single Level Current Living Status: Spouse Steps Into Home: 3 ADL-Prior Level of Function SCALE: Activities may be completed with or without assistive devices. 3-Mvlaavbnqd-qhhzxds completes the activity by him/herself with no assistance from a helper. 5-Set-up or Clean-up Assistance-helper sets up or cleans up; patient completes activity. [place] assists only prior to or following the activity. 4-Supervision or Touching Assistance-helper provides verbal cues and/or touching/steadying and/or contact guard assistance as patient completes activity. Assistance may be provided throughout the activity or intermittently. 3-Partial/Moderate Assistance-helper does LESS THAN HALF the effort. [place] lifts, holds or supports trunk or limbs, but provides less than half the effort. 2-Substantial/Maximal Assistance-helper does MORE THAN HALF the effort. [place] lifts or holds trunk or limbs and provides more than half the effort. 8-Tkjmzggat-cwpvnq does ALL the effort. Patient does none of the effort to complete the activity. Or, the assistance of 2 or more helpers is required for the patient to complete the activity. If activity was not attempted, code reason: 7-Patient Refused. 9-Not Applicable-not attempted and the patient did not perform the activity before the current illness, exacerbation or injury. 10-Not Attempted due to Environmental Limitations-(lack of equipment, weather restraints, etc.). 88-Not Attempted due to Medical Conditions or Safety Concerns. ADL PLOF Comments Pt reports being independent with self care and mobility. Does not use any assistive devices for mobility. Self Care: Independent DME/Equipment: Bath Chair, Shower Drive Self: Yes OT Current Status Subjective Pt sitting in chair, agrees to therapy. Pt does not report pain. Mental Status/Objective Patient Orientation: Person, Place Current Glasses/Contacts: No Hand Dominance: Left Upper Extremity ROM Grossly WFL Upper Extremity Coordination Intact Upper Extremity Sensation Intact per pt report ADL-Treatment ADL-Current Pt participated in UE assessment while seated. Pt demonstrated ability to doff/don socks with out assist while seated. Pt performed sit to stand without assist. Pt slightly unsteady with mobility, requiring CGA for safety during transfer. Pt sitting in chair with needs met and spouse present after session. Eating (QC): 6 (per pt report) Education OT Patient Education: Rehab process Teaching Recipient: Patient Teaching Methods: Discussion Response to Teaching: Verbalize Understanding OT Short Term Goals Short Term Goals 1=Demonstrate adherence to instructed precautions during ADL tasks. 2=Patient will verbalize/demonstrate understanding of assistive devices/modifications for ADL. 3=Patient will improve strength/tolerance for activity to enable patient to perform ADL's. OT Intermediate Goals Intermediate Goals Time Frame: Dec 24, 2018 Oral Hygiene (QC): 6 Shower/Bathe Self (QC): 5 Upper Body Dressing (QC): 6 Lower Body Dressing (QC): 6 On/Off Footwear (QC): 6 Toileting Hygiene (QC): 6 Toilet/Commode Transfer (QC): 6 Additional Goals: 1-Demonstrate ADL Tasks, 2-Verbalize Understanding, 3-Impr oveStrength/[place] 1=Demonstrate adherence to instructed precautions during ADL tasks. 2=Patient will verbalize/demonstrate understanding of assistive devices/modifications for ADL. 3=Patient will improve strength/tolerance for activity to enable patient to perform ADL's. OT Education/Plan Problem List/Assessment Assessment: Decreased Activ Tolerance, Decreased UE Strength, Impaired Self- Care Skills Pt to benefit from skilled OT intervention while hospitalized to increase ADL performance, mobility, and safety. Discharge Recommendations Plan/Recommendations: Continue POC Treatment Plan/Plan of Care Treatment,Training & Education: Yes Patient would benefit from OT for education, treatment and training to promote independence in ADL's, mobility, safety and/or upper extremity function for ADL's. Plan of Care: ADL Retraining, Functional Mobility, UE Funct Exercise/Act Treatment Duration: Dec 24, 2018 Frequency: 5 times per week Estimated Hrs Per Day: .25 hour per day Rehab Potential: Good Time/GCodes Start Time: 14:20 Stop Time: 14:32 Total Time Billed (hr/min): 12 Billed Treatment Time 1 visit, EVSanty(12minutes) CEDRIC MOCTEZUMA OT Dec 17, 2018 14:40 POS
--- NOTE | 2018-12-17 18:41 | History & Physical ---
History of Present Illness History of Present Illness Reason for visit/HPI This is a 78 year old male with a history of coronary artery disease, hypertension and uncontrolled diabetes mellitus who was brought to the emergency room by his family due to confusion and slurred speech. He was improved in the emergency room but it was felt that he had suffered a TIA. He did complain of some mild substernal chest pain while in the emergency room as well. Due to his history it was decided to admit him for further evaluation. Date of Admission Dec 17, 2018 at 00:40 Date Seen by a Provider: Dec 17, 2018 Time Seen by a Provider: 18:36 I consulted on this patient on 12/17/18 18:34 Attending Physician Caterina Grant DO Admitting Physician Caterina Grant DO Consult Allergies and Home Medications Allergies Coded Allergies: Sulfa (Sulfonamide Antibiotics) (Unverified Allergy, Unknown, 07/24/17) Home Medications Aspirin 81 Mg Tablet.dr, 81 MG PO HS, (Reported) Atorvastatin Calcium 80 Mg Tablet, 40 MG PO HS, (Reported) TAKES 1/2 (80MG) TABLET Bupropion HCl 150 Mg Tab.er.24h, 150 MG PO DAILY, (Reported) Eszopiclone 3 Mg Tablet, 3 MG PO HS, (Reported) Finasteride 5 Mg Tablet, 5 MG PO HS, (Reported) Glimepiride 4 Mg Tablet, 4 MG PO BID, (Reported) Lisinopril 20 Mg Tablet, 20 MG PO HS, (Reported) Metformin HCl 1,000 Mg Tablet, 1,000 MG PO 1200,2100, (Reported) Metoprolol Succinate 100 Mg Tab.er.24h, 100 MG PO BID, (Reported) Pantoprazole Sodium 40 Mg Tablet.dr, 40 MG PO HS, (Reported) Tamsulosin HCl 0.4 Mg Cap, 0.4 MG PO HS, (Reported) Ticagrelor 90 Mg Tablet, 90 MG PO BID, (Reported) Patient Home Medication List Home Medication List Reviewed: Yes Past Ryzqksi-Uvfhuz-Fciazn Hx Past Med/Social Hx: Reviewed Nursing Past Med/Soc Hx Patient Social History Alcohol Use: Denies Use Recreational Drug Use: No Smoking Status: Never a Smoker 2nd Hand Smoke Exposure: No Recent Foreign Travel: No Contact w/other who traveled: No Recent Hopitalizations: No Recent Infectious Disease Expo: No Immunizations Up To Date Tetanus Booster (TDap): Unknown Pediatric: Yes Date of Pneumonia Vaccine: Oct 03, 2016 Date of Influenza Vaccine: Nov 05, 2017 Seasonal Allergies Seasonal Allergies: No Past Medical History Surgeries: Coronary Stent, Gallbladder Cardiac: Coronary Artery Disease, High Cholesterol, Hypertension, Irregular Heartbeat Reproductive: No Genitourinary: Benign Prostatic Hyperpl Gastrointestinal: Gastroesophageal Reflux Musculoskeletal: Chronic Back Pain Endocrine: Diabetes, Non-Insulin dep HEENT: Cataract Cancer: Kidney Did You Recieve Any Treatments: Yes What Type of Treatment Did You: Surgical Intervention Psychosocial: Anxiety History of Blood Disorders: No Family History No Pertinent Family Hx Review of Systems Constitutional: weakness EENTM: No see HPI, No no symptoms reported, No ear discharge, No hearing loss, No ear pain, No blurred vision, No double vision, No eye pain, No tearing, No vision loss, No dental problems, No hoarseness, No mouth pain, No mouth swelling, No epistaxis, No nose congestion, No nose pain, No throat pain, No throat swelling, No other Respiratory: No no symptoms reported, No see HPI, No cough, No dyspnea on exertion, No hemoptysis, No orthopnea, No phlegm, No short of breath, No stridor, No wheezing, No other Cardiovascular: chest pain Gastrointestinal: No RUQ, No LUQ, No RLQ, No LLQ, No no symptoms reported, No see HPI, No abdominal pain, No constipation, No diarrhea, No dysphagia, No hematemesis, No heartburn, No jaundice, No loss of appetite, No melena, No nausea, No vomiting, No other Genitourinary: No no symptoms reported, No see HPI, No decreased output, No discharge, No dysuria, No frequency, No hematuria, No hesitancy, No incontinence, No nocturia, No pain, No other Musculoskeletal: muscle weakness Skin: No no symptoms reported, No see HPI, No change in color, No change in hair/nails, No dryness, No hx of skin cancer, No lesions, No lumps, No pruritus, No rash, No other Psychiatric/Neurological: Weakness, Other (confusion/slurred speech) Physical Exam Vital Signs Vital Signs - First Documented 12/17/18 01:16 Temp 37.0 Capillary Refill : Less Than 3 Seconds Height, Weight, BMI Height: 5'10.00" Weight: 205lbs. 0.0oz. [id number]; 28.91 BMI Method:Stated General Appearance: No Apparent Distress HEENT: Normal ENT Inspection Neck: Supple Cardiovascular: Regular Rate, Rhythm, Systolic Murmur Gastrointestinal: Normal Bowel Sounds, Non Tender, Soft Rectal: Deferred Back: No CVA Tenderness Extremity: Non Tender, No Calf Tenderness, No Pedal Edema Neurologic/Psychiatric: Alert, Oriented x3, No Motor/Sensory Deficits, Normal Mood/Affect, adult ministries director II-XII Norm as Tested Skin: Warm/Dry Comments Laboratory Tests 12/16/18 21:35: White Blood Count 7.7, Red Blood Count 4.89, Hemoglobin 14.9, Hematocrit 44, Mean Corpuscular Volume 91, Mean Corpuscular Hemoglobin 31, Mean Corpuscular Hemoglobin Concent 34, Red Cell Distribution Width 13.6, Platelet Count 186, Mean Platelet Volume 10.8H, Neutrophils (%) (Auto) 70, Lymphocytes (%) (Auto) 17, Monocytes (%) (Auto) 10, Eosinophils (%) (Auto) 3, Basophils (%) (Auto) 0, Neutrophils # (Auto) 5.4, Lymphocytes # (Auto) 1.3, Monocytes # (Auto) 0.7, Eosinophils # (Auto) 0.2, Basophils # (Auto) 0.0, Prothrombin Time 12.9, INR Comment 0.9, Activated Partial Thromboplast Time 28, D-Dimer 0.47, Sodium Level 140, Potassium Level 4.0, Chloride Level 104, Carbon Dioxide Level 19L, Anion Gap 17H, Blood Urea Nitrogen 21H, Creatinine 1.73H, Estimat Glomerular Filtration Rate 39, BUN/Creatinine Ratio 12, Glucose Level 128H, Calcium Level 9.6, Corrected Calcium 9.4, Total Bilirubin 0.4, Aspartate Amino Transf (AST/SGOT) 29, Alanine Aminotransferase (ALT/SGPT) 45, Alkaline Phosphatase 73, Troponin I < 0.028, Total Protein 7.0, Albumin 4.3 12/16/18 21:36: Glucometer 126H 12/16/18 23:50: Urine Color YELLOW, Urine Clarity CLEAR, Urine pH 6.0, Urine Specific [place] 1.010L, Urine Protein NEGATIVE, Urine Glucose (UA) NEGATIVE, Urine Ketones NEGATIVE, Urine Nitrite NEGATIVE, Urine Bilirubin NEGATIVE, Urine Urobilinogen 0.2, Urine Leukocyte Esterase NEGATIVE, Urine RBC (Auto) NEGATIVE, Urine RBC NONE, Urine WBC NONE, Urine Squamous Epithelial Cells RARE, Urine Crystals NONE, Urine Bacteria TRACE, Urine Casts NONE, Urine Mucus NEGATIVE, Urine Culture Indicated NO 12/17/18 03:20: White Blood Count 9.3, Red Blood Count 4.56, Hemoglobin 13.9, Hematocrit 42, Mean Corpuscular Volume 91, Mean Corpuscular Hemoglobin 31, Mean Corpuscular Hemoglobin Concent 33, Red Cell Distribution Width 13.6, Platelet Count 155, Mean Platelet Volume 11.2H, Neutrophils (%) (Auto) 78H, Lymphocytes (%) (Auto) 12, Monocytes (%) (Auto) 8, Eosinophils (%) (Auto) 2, Basophils (%) (Auto) 0, Neutrophils # (Auto) 7.2, Lymphocytes # (Auto) 1.1, Monocytes # (Auto) 0.8, Eosinophils # (Auto) 0.1, Basophils # (Auto) 0.0, Sodium Level 137, Potassium Level 4.3, Chloride Level 103, Carbon Dioxide Level 22, Anion Gap 12, Blood Urea Nitrogen 20H, Creatinine 1.62H, Estimat Glomerular Filtration Rate 42, BUN/Creatinine Ratio 12, Glucose Level 174H, Calcium Level 8.9, Corrected Calcium 9.1, Total Bilirubin 0.4, Aspartate Amino Transf (AST/SGOT) 24, Alanine Aminotransferase (ALT/SGPT) 36, Alkaline Phosphatase 61, Troponin I < 0.028, Total Protein 6.2L, Albumin 3.8, Triglycerides Level 192H, Cholesterol Level 132, LDL Cholesterol Direct 73, VLDL Cholesterol 38, HDL Cholesterol 29L 12/17/18 11:10: Glucometer 188H 12/17/18 16:00: Glucometer 270H Assessment/Plan Assessment and Plan 1. TIA--admit to Cardiac Stepdown on telemetry, Check MRI of brain in AM, add aspirin 2. History of CAD with chest pain--admit and monitor on telemetry and recheck cardiac enzymes 3. Hypertension--resume home meds 4. Acute on Chronic Renal Insufficiency--hydrate and repeat BUN/Cr 5. Diabetes mellitus II--accuchecks with SSI Admission Diagnosis Admission Status: Observation Clinical Quality Measures DVT/VTE Risk/Contraindication: Risk Factor Score Per Nursin RFS Level Per Nursing on Admit: 2=Moderate Stroke: Date of last known well: Dec 16, 2018 Time of last known well: 20:30 Symptoms onset unknown: CATERINA Burnett DO Dec 17, 2018 18:41 POS
[2018-12-17] MEDS ORDERED: FINASTERIDE (PROSCAR) 5 MG TAB PO SCH (21:00)
[2018-12-17] MEDS ORDERED: TAMSULOSIN 0.4 MG (FLOMAX) CAP PO SCH (21:00)
[2018-12-18] VITALS: BP 110/74
[2018-12-18 04:51] VITALS: BP 105/70
[2018-12-18] MEDS: inSUlin ASPART (NovoLOG) 1 UNIT/0.01 ML (CHARGE PER UNIT) SC SCH ×2 (05:06→11:38)
[2018-12-18 08:00] VITALS: BP 140/83
--- NOTE | 2018-12-18 09:28 | Cardiology Progress Note ---
Cardiology SOAP Progress Note Subjective: Improved speech. No cardiac symptoms. No further chest discomfort. Objective: I&O/Vital Signs 12/17/18 12/17/18 12/18/18 12/18/18 23:10 23:51 00:00 01:34 Temp 36.7 Pulse 83 79 B/P (MAP) 110/74 (86) Pulse Ox 94 O2 Delivery Room Air Room Air 12/18/18 12/18/18 12/18/18 12/18/18 03:06 03:44 04:51 06:52 Temp 36.4 Pulse 78 78 Resp 30 B/P (MAP) 105/70 (82) Pulse Ox 95 O2 Delivery Room Air Room Air 12/18/18 12/18/18 12/18/18 08:00 08:00 09:00 Temp 36.7 Pulse 86 Resp 22 B/P (MAP) 140/83 (102) Pulse Ox 96 95 O2 Delivery Room Air Room Air Room Air 12/18/18 00:00 Intake Total 300 ml Output Total 700 ml Balance -400 ml Weight (Pounds): 205 Weight (Ounces): 0.0 Weight (Calculated Kilograms): 92.301089 Constitutional: appears stated age, AAO x 3; No apparent distress; well- developed, well-nourished Respiratory: chest is bilaterally symmetric, lungs clear to auscultation Cardiovascular: regular rate-rhythm, S1 and S2 Gastrointestional: soft, audible bowel sounds; No spleenomegaly Extremities: normal range of motion, non-tender, normal inspection; No clubbing, No cyanosis; no lower extremity edema bilateral; No significant edema Neurologic/Psychiatric: alert, normal mood/affect, oriented x 3, power is 5/5 both on sides Skin: No rash, No ulcerations Results/Procedures: Labs Laboratory Tests 12/17/18 11:10: Glucometer 188H 12/17/18 16:00: Glucometer 270H 12/17/18 20:16: Glucometer 129H 12/18/18 04:59: Glucometer 181H A/P: Assessment/Dx: Cryptogenic TIA, Chest pressure, History of CAD, Diabetes, Hypertension, Hyperlipidemia Plan: TIA, already on dual antiplatelet therapy. Telemetry 48 hours did not show any atrial fibrillation. Neck CTA did not reveal any hemodynamically significant carotid disease. Echocardiogram ruled out intracardiac shunting, normal LV function with no wall motion abnormalities. The working diagnosis is cryptogenic stroke and therefore an implantable loop recorder is recommended. T Chest pressure, troponin 2 is negative. EKG on admission did not show any acute ST-T wave abnormalities. Nuclear stress test done 12/17/2018 showed normal perfusion during rest and stress. History of CAD, recent PCI to mid RCA with drug-eluting stent in September 2018. Continue dual antiplatelet therapy. Diabetes, deferred to the primary team area Hypertension, continue outpatient medications. Hyperlipidemia, continue high-dose statin therapy. Thank you for your consultation. Please call me if you have any questions. Jose Stafford MD, FACP, FACC, FSCAI, FHRS, CCDS Interventional Cardiology Cardiac Electrophysiology Vascular Medicine and Endovascular Interventions Clinical Quality Measures Stroke: Date of last known well: Dec 16, 2018 Time of last known well: 20:30 Symptoms onset unknown: Jeramy Quan MD Dec 18, 2018 09:28 POS
[2018-12-18] MEDS ORDERED: PATIENT MAY USE OWN MEDS, ALL MC SCH (10:00)
--- NOTE | 2018-12-18 10:01 | NUR ---
provided prayer and Communion.
[2018-12-18] MEDS: ASPIRIN 81 MG CHEW (CHILDREN'S ASA) PO SCH (10:17)
[2018-12-18] MEDS: TICAGRELOR 90 MG TABLET (BRILINTA) PO SCH (10:17)
[2018-12-18] MEDS: DOCUSATE SODIUM 100 MG (COLACE) CAP PO SCH (10:17)
[2018-12-18] MEDS: PANTOPRAZOLE 40 MG (PROTONIX) TAB PO SCH (10:18)
[2018-12-18] MEDS: meTOprolol SUCCINATE 100 MG (TOPROL XL) TAB PO SCH (10:18)
[2018-12-18] MEDS: amLODIPine 5 MG (NORVASC) TAB PO SCH (10:18)
[2018-12-18] MEDS: lisINopril 20 MG (PRINIVIL) TABLET PO SCH (10:19)
--- NOTE | 2018-12-18 10:33 | Cardiology Stress Test Report ---
Stress Test Report Type of NM Stress Test: Test Type: LEXISCAN 0.4MG/5ML Date of Procedure/Referring: Date of Procedure: Dec 17, 2018 PCP Caterina Grant DO Admitting Physician Caterina Grant DO Indications: Chest pressure, recent PCI. Baseline Heart Rate: 77 Baseline Blood Pressure: Blood Pressure Systolic: 140 Blood Pressure Diastolic: 83 Baseline EKG: Baseline EKG: sinus rhythm Summary & Conclusion: Summary: The patient was brought to the stress lab after informed consent was taken. Stress test was performed according to the Lexiscan protocol. 0.4 mg of IV Lexiscan was given. Low-grade exercise was performed. Baseline EKG showed sinus rhythm at 77 BPM. Initial blood pressure was 148/75 mmHg. Maximum heart rate was 93 bpm and blood pressure 145/77 mmHg. Patient did not have any chest pain, arrhythmias or ST segment changes during the stress test. 11.0 mCi of Myoview were given for rest imaging and 33.0 mCi of Myoview given for stress imaging. Transient ischemic dilatation score 1.06, EF 50 percent. Normal wall motion. Normal myocardial perfusion imaging during rest and stress. Conclusion: Pharmacological stress test was negative for ischemia. Normal LV function with no wall motion abnormalities. Normal myocardial perfusion imaging during rest and stress. Jeramy OLIVARES MD Dec 18, 2018 10:33 POS
--- NOTE | 2018-12-18 11:48 | Occ Therapy Progress Note ---
Therapy Progress Note Attempted therapy at 1110. Pt sitting EOB with spouse present. Pt states he will have loop recorder implanted around noon and the plan is to d/c home this afternoon. Pt declined therapy, states he has no needs at this time. States he has been up in room without difficulty, RN confirmed. Denied questions or concerns. Pt with needs met and spouse present. 1, visit, CEDRIC MOCTEZUMA OT Dec 18, 2018 11:47 POS
[2018-12-18] MEDS ORDERED: LIDOCAINE 1% INJ 20 ML 20 ML VIAL ONE (11:49)
--- NOTE | 2018-12-18 12:00 | Physical Therapy Daily Note ---
PT Daily Note-Current Subjective Pt agreeable to PT session. states they are hoping he can go home this afternoon after procedure at 12:30. States he was having outpatient physical therapy and is planning on returning to that on Sunday Pain Numeric Pain Scale: 0-No Pain Appearance Pt sitting up in chair awake and alert upon arrival, pt's present. At end of session, pt sitting up in chair eating lunch with call light, phone and bedside table within reach. Mental Status Patient Orientation: Person, Place, Time, Eyes Open, Situation Transfers SCALE: Activities may be completed with or without assistive devices. 3-Fahkfbasff-rjsmvzj completes the activity by him/herself with no assistance from a helper. 5-Set-up or Clean-up Assistance-helper sets up or cleans up; patient completes activity. [place] assists only prior to or following the activity. 4-Supervision or Touching Assistance-helper provides verbal cues and/or touching/steadying and/or contact guard assistance as patient completes activity. Assistance may be provided throughout the activity or intermittently. 3-Partial/Moderate Assistance-helper does LESS THAN HALF the effort. [place] lifts, holds or supports trunk or limbs, but provides less than half the effort. 2-Substantial/Maximal Assistance-helper does MORE THAN HALF the effort. [place] lifts or holds trunk or limbs and provides more than half the effort. 2-Trbzjqpur-xiherq does ALL the effort. Patient does none of the effort to complete the activity. Or, the assistance of 2 or more helpers is required for the patient to complete the activity. If activity was not attempted, code reason: 7-Patient Refused. 9-Not Applicable-not attempted and the patient did not perform the activity before the current illness, exacerbation or injury. 10-Not Attempted due to Environmental Limitations-(lack of equipment, weather restraints, etc.). 88-Not Attempted due to Medical Conditions or Safety Concerns. Transfers (B, C, W/C): 6 Roll Left to Right (QC): 6 Sit to Lying (QC): 6 Sit to Stand (QC): 6 Chair/Snw-hj-Zfhgf Xfer(QC): 6 Pt demo safe I transfers with good technique Gait Training Does the Patient Walk?: Yes Distance: 400 Walk 10 feet (QC): 6 Walk 50 ft with 2 Turns(QC): 6 Walk 150 ft (QC): 6 Gait Persons Needed: 1 Gait Assistive Device: None No LOB or unsteadiness, slight path deviation, decreased hip and knee flexion, slight guarded posture, good pace, decreased step length and height, decreased arm swing Treatments safety, education, gait, activity tolerance, functional mobility, balance, bed mobility, strength Assessment Current Status: Good Progress PT Usp Goals Usp Goals PT Usp Goals Time Frame: Dec 24, 2018 Sit to Lying (QC): 6 Lying-Sitting on Side/Bed(QC): 6 Sit to Stand (QC): 6 Roll Left to Right (QC): 6 Chair/Lli-rd-Qbklc Xfer(QC): 6 Car Transfer (QC): 6 Does the Patient Walk: Yes Distance: 500' Walk 10 feet (QC): 6 Walk 10ft-Uneven Surface(QC): 6 Walk 50ft with 2 Turns (QC): 6 Walk 150 ft (QC): 6 Gait Assistive Device: FWW PT Plan Treatment/Plan Treatment Plan: Continue Plan of Care Treatment Plan: Bed Mobility, Education, Functional Activity [place], Functional Strength, Gait, Safety, Therapeutic Exercise, Transfers Frequency: 6 times per week Estimated Hrs Per Day: .25 hour per day Patient and/or Family Agrees t: Yes Safety Risks/Education Patient Education: Gait Training, Transfer Techniques, Safety Issues Teaching Recipient: Patient, Family Teaching Methods: Discussion Response to Teaching: Verbalize Understanding, Return Demonstration Discharge Recommendations Therapy Discharge Recommendati: Other, See Comments (continue outpatient PT ) Time/GCodes Time In: 1144 Time Out: 1155 Total Billed Treatment Time: 11 Total Billed Treatment 1 visit, GT x11 min MARLENI NAVARRO PTA Dec 18, 2018 12:00 POS
[2018-12-18] MEDS ORDERED: AMLO5TAB9 PO (13:03)
[2018-12-18] MEDS ORDERED: METF-399 PO (13:03)
--- NOTE | 2018-12-18 13:03 | Implantation of Loop Monitor ---
Implant of Loop Monitior PROCEDURE PHYSICIAN: Jose Stafford MD IMPLANTATION OF LOOP MONITOR REPORT DATE OF PROCEDURE: 12/18/18 PERFORMING PHYSICIAN: Dr. Nahun Stafford. INDICATION: Cryptogenic stroke PREOP DIAGNOSIS: Cryptogenic stroke POSTOP DIAGNOSIS: Cryptogenic stroke, s/p implantation of loop recorder. PROCEDURE DETAILS: The patient is a 78 male with admission for cryptogenic stroke. Therefore implantable loop recorder was discussed and agreed with the patient. Informed consent was taken. All risks and complications were discussed at length. The patient was draped and prepped in the usual sterile fashion. Local anesthesia was lidocaine, which was given in the substernal area close to the 4th intercostal space. Loop monitor was implanted according to the protocol. Steri- Strips were placed at the end of the procedure. There were no complications and the patient tolerated the procedure well. ANESTHESIA: Local anesthesia with lidocaine. COMPLICATIONS: None CONTRAST/FLUOROSCOPY: None CONCLUSION: 1. Successful implantation of loop monitor for cryptogenic stroke. 2. No complication and the patient tolerated the procedure well. Jose Stafford MD, [facility] Cardiac Electrophysiology Jeramy STAFFORD MD Dec 18, 2018 13:02 POS
--- NOTE | 2018-12-23 10:43 | Physician Query-Final Dx ---
Final Diagnosis Give Final Diagnosis Please give Final Diagnosis MIREILLE MCCLURE Dec 23, 2018 10:43 POS
== END 2018-12-18 13:01 | disposition home IV services (08) ==
LOC: EDUNIT# 21:27 → ER 21:28 → ICU 21:29 → UNDOADMOB 12-17 00:40 → UNDODISOB 12-18 13:50
PROVIDERS: ADMIT Family Medicine; ATTEND Family Medicine
DX: G45.9 Transient cerebral ischemic attack, unspecified (principal); I25.10 Atherosclerotic heart disease of native coronary artery without angina pectoris; I12.9 Hypertensive chronic kidney disease with stage 1 through stage 4 chronic kidney disease, or unspecified chronic kidney disease; E11.22 Type 2 diabetes mellitus with diabetic chronic kidney disease; N18.9 Chronic kidney disease, unspecified; N40.0 Benign prostatic hyperplasia without lower urinary tract symptoms; K21.9 Gastro-esophageal reflux disease without esophagitis; G89.29 Other chronic pain; M54.9 Dorsalgia, unspecified; F41.9 Anxiety disorder, unspecified; Z88.2 Allergy status to sulfonamides; Z79.82 Long term (current) use of aspirin; Z79.84 Long term (current) use of oral hypoglycemic drugs; Z79.899 Other long term (current) drug therapy; Z95.5 Presence of coronary angioplasty implant and graft; Z90.49 Acquired absence of other specified parts of digestive tract; Z85.528 Personal history of other malignant neoplasm of kidney; I08.0 Rheumatic disorders of both mitral and aortic valves
CPT/HCPCS: 33285; 36415; 70450; 70496; 70498; 70551; 71045; 78452; 80053; 80061; 81000; 82962; 84484; 85025; 85379; 85610; 85730; 93005; 93017; 93041; 93306; 94664; 96361; 96374

== ENCOUNTER 2019-02-21 08:30 | Outpatient (RCR) | payer MEDICARE, OTHER ==
[~2019-02-21 08:30] MED LIST changes: +AMLO5TAB9 PO; -GLIM4TAB PO; +GLIM4TAB3 PO; -METO-387 PO; +MTP100TCR PO; +MTP25TSR PO; +OMEP40CA27 PO; -TAMS0.4C98 PO; +TMSL.4C PO
== END 2019-02-23 | disposition home or self-care (01) ==
LOC: CR 08:30
PROVIDERS: ATTEND Family Medicine
DX: I25.10 Atherosclerotic heart disease of native coronary artery without angina pectoris (principal); I10 Essential (primary) hypertension; Z95.5 Presence of coronary angioplasty implant and graft
CPT/HCPCS: 93798

== ENCOUNTER → 2019-03-26 | Outpatient (RCR) | payer MEDICARE, OTHER | END | disposition home or self-care (01) | LOC: CR3 02-24 09:00 → CR 02-24 10:55 → CR3 02-26 09:02 | PROVIDERS: ATTEND Family Medicine | DX: I25.10 Atherosclerotic heart disease of native coronary artery without angina pectoris (principal); I10 Essential (primary) hypertension; Z95.5 Presence of coronary angioplasty implant and graft; Z29.8 Encounter for other specified prophylactic measures ==

== ENCOUNTER 2019-04-18 09:25 | Outpatient (RCR) | payer MEDICARE, OTHER ==
[~2019-04-18 09:25] MED LIST changes: -BUPR150T20 PO; +BUPR150T28 PO; -GLIM4TAB3 PO; +GLIM4TAB5 PO
== END 2019-04-27 | disposition home or self-care (01) ==
LOC: CR3 09:25
PROVIDERS: ATTEND Family Medicine
DX: I25.10 Atherosclerotic heart disease of native coronary artery without angina pectoris (principal); I10 Essential (primary) hypertension; Z95.5 Presence of coronary angioplasty implant and graft

== ENCOUNTER → 2020-05-19 | Outpatient (RCR) | payer MEDICARE, OTHER ==
[~2020-05-19] MED LIST changes: +AMLO-250 PO; -AMLO5TAB9 PO; +ASPI-1238 PO; -ASPI-983 PO; +BUPR150T24 PO; -BUPR150T7 PO; -LISI-552 PO; +LISI20TA26 PO; -PANT40TA3 PO; +PANT40TA52 PO
== END | disposition home or self-care (01) ==
LOC: CR3 04-19 16:54
PROVIDERS: ATTEND Family Medicine
DX: I25.10 Atherosclerotic heart disease of native coronary artery without angina pectoris (principal); I10 Essential (primary) hypertension; Z95.5 Presence of coronary angioplasty implant and graft; Z29.8 Encounter for other specified prophylactic measures

== ENCOUNTER → 2020-05-31 | Outpatient (CLI) | payer MEDICARE, OTHER | LOC: CARD 09:26 | PROVIDERS: ATTEND Internal Medicine Cardiovascular Disease | DX: R07.9 Chest pain, unspecified (principal); I10 Essential (primary) hypertension; I08.0 Rheumatic disorders of both mitral and aortic valves | CPT/HCPCS: 93306 ==

== ENCOUNTER 2020-06-18 16:55 | Outpatient (RCR) | payer MEDICARE, OTHER | END 2020-06-20 | disposition home or self-care (01) | LOC: CR3 16:55 | PROVIDERS: ATTEND Family Medicine | DX: I25.10 Atherosclerotic heart disease of native coronary artery without angina pectoris (principal); I10 Essential (primary) hypertension; Z95.5 Presence of coronary angioplasty implant and graft ==

== ENCOUNTER → 2020-07-21 | Outpatient (RCR) | payer MEDICARE, OTHER | END | disposition home or self-care (01) | LOC: CR3 06-21 14:58 | PROVIDERS: ATTEND Family Medicine | DX: I25.10 Atherosclerotic heart disease of native coronary artery without angina pectoris (principal); I10 Essential (primary) hypertension; Z95.5 Presence of coronary angioplasty implant and graft; Z29.8 Encounter for other specified prophylactic measures ==

== ENCOUNTER 2020-08-20 15:32 | Outpatient (RCR) | payer MEDICARE, OTHER ==
[~2020-08-20 15:32] MED LIST changes: -OMEP40CA27 PO; +OMEP40CA6 PO
== END 2020-08-22 | disposition home or self-care (01) ==
LOC: CR3 15:32
PROVIDERS: ATTEND Family Medicine
DX: I25.10 Atherosclerotic heart disease of native coronary artery without angina pectoris (principal); I10 Essential (primary) hypertension; Z95.5 Presence of coronary angioplasty implant and graft; Z29.8 Encounter for other specified prophylactic measures

== ENCOUNTER → 2020-09-20 | Outpatient (CLI) | payer MEDICARE, OTHER ==
[~2020-09-20] MED LIST changes: +CATHETER FLUSH 10 ML SYR IV PRN; +REGADENOSON 0.4 MG/5 ML SYR (LEXISCAN) IV ONE; +meTOprolol 5 MG/5 ML (LOPRESSOR) VIAL IV ONE; +meTOprolol 5 MG/5 ML (LOPRESSOR) VIAL ONE
[2020-09-20 09:30] VITALS: BP 175/89
--- NOTE | 2020-09-20 11:19 | Cardiology Stress Test Report ---
Stress Test Report Date of Procedure/Referring: Date of Procedure: Sep 20, 2020 PCP Vivi Bernabe MD Admitting Physician Caterina Grant DO Indications: CP Baseline Heart Rate: 99 Baseline Blood Pressure: Blood Pressure Systolic: 175 Blood Pressure Diastolic: 89 Baseline Vitals Vital Signs Date Time Temp Pulse Resp B/P (MAP) Pulse Ox O2 Delivery O2 Flow Rate FiO2 09/20/20 09:30 102 18 175/89 (117) 98 Room Air Baseline EKG: Baseline EKG: NSR Summary After explaining the procedure to the patient, he signed a consent and then brought to the stress nuclear laboratory. Patient received 0.4 mg Lexiscan for stress test, ECG, heart rate and blood pressure were monitored continuously. Resting and stress dose of radio tracer were injected, imaging was acquired and reviewed in short axis, horizontal long axis and vertical long axis views. TID: 1.19 SSS: 8 SDS: 2 EF: 44 1. Patient tolerated Lexiscan well 2. Diaphragmatic attenuation with decreased uptake involving the whole inferior wall and inferoapical wall with mild reversibility 3. Normal left ventricular size, mild hypokinesia of the inferior wall, ejection fraction 44% VIVI BERNABE MD Sep 20, 2020 11:19
== END ==
LOC: CARD 07:53
PROVIDERS: ATTEND Internal Medicine Cardiovascular Disease
DX: R07.9 Chest pain, unspecified (principal)
CPT/HCPCS: 78452; 93017; A9502

== ENCOUNTER → 2020-09-21 | Outpatient (CLI) | payer MEDICARE, OTHER ==
[~2020-09-21] MED LIST changes: -CATHETER FLUSH 10 ML SYR IV PRN; -REGADENOSON 0.4 MG/5 ML SYR (LEXISCAN) IV ONE; -meTOprolol 5 MG/5 ML (LOPRESSOR) VIAL IV ONE; -meTOprolol 5 MG/5 ML (LOPRESSOR) VIAL ONE
--- NOTE | 2020-09-21 15:34 | Diagnostic Imaging Report ---
PROCEDURE: US Renal Bilateral. INDICATION: RIGHT-SIDED RENAL CANCER TECHNIQUE: Multiple real-time grayscale sonographic images were obtained of the kidneys. CORRELATION: 08/29/2018, CT abdomen and pelvis of 07/24/2017. FINDINGS: RIGHT KIDNEY: 8.3 x 4.8 x 5.2 cm. Distortion about the mid superior pole, likely on a postoperative basis. More focal hypoechoic mass, compatible with probable cyst, at the inferior pole at 1.7 x 1.7 x 1.6 cm. LEFT KIDNEY: 10.9 x 5.4 x 5.0 cm. There is normal echotexture of the left renal parenchyma. No definitive calcification or hydronephrosis. URINARY BLADDER: There is presence of bilateral ureteral jets. Urinary bladder appearing unremarkable. Prevoid Volume: 120 mL. Postvoid Volume: 110 mL. IMPRESSION: 1. Likely postoperative distortion of the right kidney. 2. Hypoechoic mass in the inferior pole of the right kidney favors probable cyst. However, this appears changed from prior imaging. Therefore, short-term follow-up repeat ultrasound or preferably CT and/or MRI would be recommended for further evaluation. Dictated by: Dictated on workstation # [id number]
== END ==
LOC: RAD 14:00
PROVIDERS: ATTEND Specialist
DX: C64.1 Malignant neoplasm of right kidney, except renal pelvis (principal)
CPT/HCPCS: 76770

== ENCOUNTER → 2020-09-22 | Outpatient (RCR) | payer MEDICARE, OTHER | END | disposition home or self-care (01) | LOC: CR3 08-23 11:47 | PROVIDERS: ATTEND Family Medicine | DX: I25.10 Atherosclerotic heart disease of native coronary artery without angina pectoris (principal); I10 Essential (primary) hypertension; Z95.5 Presence of coronary angioplasty implant and graft; Z29.8 Encounter for other specified prophylactic measures ==

== ENCOUNTER 2020-09-29 09:00 | Day surgery (SDC) | payer MEDICARE, OTHER ==
[~2020-09-29] VITALS: Ht 177 cm; Wt 90.2 kg
[2020-09-29] VITALS (10 sets, daily range): BP systolic 131–166; BP diastolic 69–93
[2020-09-29 07:35] LABS: HEMATOCRIT 44 % (40-54); HEMOGLOBIN 14.5 g/dL (13.3-17.7); MEAN CORPUSCULAR HEMOGLOBIN 31 pg (25-34); MEAN CORPUSCULAR HGB CONC 33 g/dL (32-36); MEAN CORPUSCULAR VOLUME 92 fL (80-99); PLATELET COUNT 165 10^3/uL (130-400); WHITE BLOOD COUNT 6.6 10^3/uL (4.3-11.0)
[2020-09-29 07:35] LABS: BILIRUBIN,URINE NEGATIVE (NEGATIVE); CLARITY,URINE CLEAR; COLOR,URINE YELLOW; GLUCOSE, URINE (UA) NEGATIVE (NEGATIVE); KETONES,URINE NEGATIVE (NEGATIVE); LEUKOCYTE ESTERASE ,URINE NEGATIVE (NEGATIVE); NITRITE,URINE NEGATIVE (NEGATIVE); PH,URINE 5.5 (5-9); PROTEIN,URINE NEGATIVE (NEGATIVE)
[2020-09-29 07:42] LABS: BACTERIA,URINE NEGATIVE /HPF; SQUAMOUS EPITHELIAL CELL,UR RARE /HPF
--- NOTE | 2020-09-29 07:48 | Diagnostic Imaging Report ---
EXAMINATION: Chest 1 view HISTORY: ABN STRESS, CAD COMPARISON: 12/16/2018 FINDINGS: Heart size and pulmonary vasculature are normal. The lungs are clear without consolidation, pleural effusion, or pneumothorax. Degenerative changes of the thoracic spine. Osseous structures are otherwise intact. Cervical fusion hardware is unchanged. IMPRESSION: 1. No acute radiographic abnormality in the chest. Dictated by: Dictated on workstation # [id number]
[2020-09-29 07:50] LABS: PROTHROMBIN TIME PATIENT 13.4 SEC (12.2-14.7)
[2020-09-29 07:59] LABS: ALBUMIN 3.9 GM/DL (3.2-4.5); BILIRUBIN,TOTAL 0.6 MG/DL (0.1-1.0); CALCIUM 9.1 MG/DL (8.5-10.1); CREATININE SERUM 1.23 MG/DL (0.60-1.30); POTASSIUM 3.7 MMOL/L (3.6-5.0); TOTAL PROTEIN 6.7 GM/DL (6.4-8.2)
[~2020-09-29 09:00] MED LIST changes: +BUPR100T8 PO; +HEParin (CATH LAB) 2,000 ML IV ONE; +LIDOCAINE 1% INJ 20 ML 20 ML VIAL ONE; +NITR4.9S6 TL; +NS IV 1000 ML 1,000 ML IV SCH; +NS IV 1000 ML 1,000 ML ONE; +PEG15DRO9 OU
[2020-09-29] MEDS ORDERED: fentaNYL INJ 100 MCG/2 ML AMP ONE (09:35)
[2020-09-29] MEDS ORDERED: MIDAZOLAM 5 MG/5 ML (VERSED) VIAL ONE (09:36)
--- NOTE | 2020-09-29 09:44 | Conscious Sedation/ASA ---
Conscious Sedation Pre-Proced Time 09:43 ASA Score 3 For ASA 3 and 4: Consider anesthesia and medical clearance. Also, for patients with a history of failed moderate sedation consider anesthesia. Airway Lungs Heart ASA score ASA 1: a normal healthy patient ASA 2: a patient with a mild systemic disease (mid diabetes, controlled hypertension, obesity x ASA 3: a patient with a severe systemic disease that limits activity (angina, COPD, prior Myocardial infarction) ASA 4: a patient with an incapacitating disease that is a constant threat to life (CHF, renal failure) ASA 5: a moribund patient not expected to survive 24 hrs. (ruptured aneurysm) ASA 6: a declared brain- patient whose organs are being harvested. For emergent operations, add the letter E after the classification Mallampati Classification Grade 3 Sedation Plan Analgesia, Amnesia, Plan communicated to team members, Discussed options with patient/fam, Discussed risks with patient/fam The patient is an appropriate candidate to undergo the planned procedure, sedation, and anesthesia. The patient immediately re-assessed prior to indication. VIVI BUCIO MD Sep 29, 2020 09:44
[2020-09-29] MEDS ORDERED: NS IV 1000 ML 1,000 ML IV SCH ×2 (10:15→10:30)
[2020-09-29] MEDS ORDERED: METF-399 PO (10:19)
--- NOTE | 2020-09-29 10:20 | Discharge Inst-Post CATH ---
Discharge Inst-CATH/EP Problems Reviewed?: Yes Post Cardiac Cath/EP D/C Inst Follow Up/Plan Hold Metformin for [address] Bernabe in 2 to 4 weeks <b>CARDIAC CATH/EP PROCEDURE DISCHARGE INSTRUCTIONS</b> ACTIVITY * Go Home directly and rest. * Limit activity of the leg (or wrist if it was used) for 7 days including aerobics, swimming, jogging, bicycling, etc. * Restrict stair-climbing for 7 days if possible, if not, climb up with your non-cath leg, then bring together on the same step. * Avoid lifting, pushing, pulling or excessive movement of the affected extremity for 7 days. * Customary sexual activity may be resumed after 2 days-use caution not to use a position that strains or causes pain to the affected extremity. * No driving for 24 hours. * NO SMOKING. * Avoid straining for bowel movements for 7 days. * Gentle walking on level ground is allowed. * Returning to work will depend on the type of procedure and the results. Your doctor will discuss this with you. CALL YOUR DOCTOR FOR ANY OF THE FOLLOWING: *If bleeding from the puncture site occurs- Apply gentle pressure to site with clean cloth and call your doctor or EMS. * If a knot or lump forms under the skin, increases in size, or causes pain. * If bruising appears to be worsening or moving further down your leg instead of disappearing. * Temperature above 101 F. CARE OF YOUR GROIN INCISION; * Bruising or purple discoloration of the skin near the puncture site is common. * You may shower only, no bathtub bathing for 5 days. Be careful to avoid slipping as your leg may feel stiff. * If a closure device was used on your femoral artery, please see the attached guide regarding care of the device and your leg. * Leave dressing on FOR 24 hours. CARE OF YOUR WRIST INCISION; * Bruising or purple discoloration of the skin near the puncture site is common. * You may shower. * DO NOT submerge wrist. * Leave dressing on FOR 24 hours. VIVI BERNABE MD Sep 29, 2020 10:20
--- NOTE | 2020-09-29 10:25 | Cardiac Cath Report ---
Cardiac Cath Report Physician (s)/Planer Stone (s) Physician VIVI BUCIO MD Pre-Procedure Diagnosis Pre-Procedure Diagnosis: Coronary artery disease Post-Procedure Note Procedure Start Date: Sep 29, 2020 Name of Procedure: Left heart catheterization Findings/Procedure Note PROCEDURE NOTE: 80-year-old gentleman with history of coronary artery disease, multiple intervention, had an abnormal stress test with inferior wall ischemia. After explaining the procedure to the patient, all pros and cons were explained, all questions were answered. The patient signed the consent and then he was placed on the cardiac catheterization laboratory. Groin was prepped SL fashion local anesthesia was used. Sheath placed in the right femoral artery. Gia right and left catheter were used to access the coronary system. Pigtail was used to access the left ventricular cavity. Left ventriculogram was not done, pressure was measured At the end of the procedure the sheath was removed. Closure device was deployed FINDINGS: Hemodynamics LV 145/15, end-diastolic pressure of 15 Aorta 155/73 mean of 106 ANATOMY: Left Main is free of obstructive disease Left Anterior Descending has heavy calcification with patent stent in the proximal and mid LAD, mild in stent restenosis nonobstructive disease Left Circumflex is calcified artery with patent stent in the proximal circumflex artery, mild in-stent restenosis Right Coronary Artery has multiple stent extending from the proximal to the distal right coronary artery, mild in-stent restenosis, small vessel disease distally LV Gram was not done, pressure was measured CONCLUSION: 1. Multiple stents in the right coronary artery with mild in-stent restenosis, small vessel disease distally nonobstructive disease 2. Multiple stents in the LAD and circumflex artery with mild in-stent restenosis, mild to moderate disease nonobstructive disease 3. Normal left ventricular end-diastolic pressure DISCUSSION AND RECOMMENDATION: Medical therapy is recommended, abnormal stress test is probably due to small vessel disease Anesthesia Type: Conscious Sedation Estimated blood loss (mL): 15 ml` Contrast Amount: 33 ml Total Radiation Dose: 337 mGy Post-Procedure Diagnosis Post-operative diagnosis: Chest pain Coronary artery disease Hypertension Hyperlipidemia VIVI BUCIO MD Sep 29, 2020 10:25
[2020-09-29] MEDS ORDERED: PATIENT MAY USE OWN MEDS, ALL PO SCH (10:30)
== END 2020-09-29 14:40 | disposition home or self-care (01) ==
LOC: CATH 09:00 → SDC 10:26 → CATH 14:40
PROVIDERS: ATTEND Internal Medicine Cardiovascular Disease
DX: I25.10 Atherosclerotic heart disease of native coronary artery without angina pectoris (principal); I10 Essential (primary) hypertension; I65.29 Occlusion and stenosis of unspecified carotid artery; E11.9 Type 2 diabetes mellitus without complications; E78.5 Hyperlipidemia, unspecified; Z79.82 Long term (current) use of aspirin; Z79.899 Other long term (current) drug therapy; Z79.02 Long term (current) use of antithrombotics/antiplatelets; Z86.73 Personal history of transient ischemic attack (TIA), and cerebral infarction without residual deficits; Z79.891 Long term (current) use of opiate analgesic; Z79.84 Long term (current) use of oral hypoglycemic drugs; Z83.3 Family history of diabetes mellitus
CPT/HCPCS: 71045; 80053; 80061; 81000; 85027; 85610; 85730; 87081; 93458; C1760; C1894; 36415

== ENCOUNTER 2020-10-22 14:44 | Outpatient (RCR) | payer MEDICARE, OTHER ==
[~2020-10-22 14:44] MED LIST changes: -HEParin (CATH LAB) 2,000 ML IV ONE; -LIDOCAINE 1% INJ 20 ML 20 ML VIAL ONE; -NS IV 1000 ML 1,000 ML IV SCH; -NS IV 1000 ML 1,000 ML ONE
== END 2020-10-24 | disposition home or self-care (01) ==
LOC: CR3 14:44
PROVIDERS: ATTEND Family Medicine
DX: I25.10 Atherosclerotic heart disease of native coronary artery without angina pectoris (principal); I10 Essential (primary) hypertension; Z95.5 Presence of coronary angioplasty implant and graft; Z29.8 Encounter for other specified prophylactic measures

== ENCOUNTER → 2020-11-24 | Outpatient (RCR) | payer MEDICARE, OTHER | END | disposition home or self-care (01) | LOC: CR3 10-25 15:03 | PROVIDERS: ATTEND Family Medicine | DX: I25.10 Atherosclerotic heart disease of native coronary artery without angina pectoris (principal); I10 Essential (primary) hypertension; Z95.5 Presence of coronary angioplasty implant and graft; Z29.8 Encounter for other specified prophylactic measures ==

== ENCOUNTER 2020-12-24 15:11 | Outpatient (RCR) | payer MEDICARE, OTHER | END 2020-12-26 | disposition home or self-care (01) | LOC: CR3 15:11 | PROVIDERS: ATTEND Family Medicine | DX: I25.10 Atherosclerotic heart disease of native coronary artery without angina pectoris (principal); I10 Essential (primary) hypertension; Z95.5 Presence of coronary angioplasty implant and graft; Z29.8 Encounter for other specified prophylactic measures ==

== ENCOUNTER → 2021-01-26 | Outpatient (RCR) | payer MEDICARE, OTHER | LOC: CR3 12-27 15:26 | PROVIDERS: ATTEND Family Medicine | DX: Z29.8 Encounter for other specified prophylactic measures (principal); I25.10 Atherosclerotic heart disease of native coronary artery without angina pectoris; I10 Essential (primary) hypertension; Z95.5 Presence of coronary angioplasty implant and graft ==

== ENCOUNTER 2021-03-04 15:13 | Outpatient (RCR) | payer MEDICARE, OTHER | END 2021-03-06 | disposition home or self-care (01) | LOC: CR3 15:13 | PROVIDERS: ATTEND Family Medicine | DX: I25.10 Atherosclerotic heart disease of native coronary artery without angina pectoris (principal); I10 Essential (primary) hypertension; Z95.5 Presence of coronary angioplasty implant and graft; Z29.8 Encounter for other specified prophylactic measures ==

== ENCOUNTER 2021-04-04 16:08 | Outpatient (RCR) | payer MEDICARE, OTHER | END 2021-04-06 | disposition home or self-care (01) | LOC: CR3 16:08 | PROVIDERS: ATTEND Family Medicine | DX: I25.10 Atherosclerotic heart disease of native coronary artery without angina pectoris (principal); I10 Essential (primary) hypertension; Z95.5 Presence of coronary angioplasty implant and graft; Z29.8 Encounter for other specified prophylactic measures ==

== ENCOUNTER 2021-06-03 15:39 | Outpatient (RCR) | payer MEDICARE, OTHER ==
[~2021-06-03 15:39] MED LIST changes: +BUPR-104 PO; -BUPR100T8 PO
== END 2021-06-04 | disposition home or self-care (01) ==
LOC: CR3 15:39
PROVIDERS: ATTEND Family Medicine
DX: I25.10 Atherosclerotic heart disease of native coronary artery without angina pectoris (principal); I10 Essential (primary) hypertension; Z95.5 Presence of coronary angioplasty implant and graft; Z29.8 Encounter for other specified prophylactic measures

== ENCOUNTER 2021-08-03 14:56 | Outpatient (RCR) | payer MEDICARE, OTHER | END 2021-08-04 | disposition home or self-care (01) | LOC: CR3 14:56 | PROVIDERS: ATTEND Family Medicine | DX: I25.10 Atherosclerotic heart disease of native coronary artery without angina pectoris (principal); I10 Essential (primary) hypertension; Z95.5 Presence of coronary angioplasty implant and graft; Z29.8 Encounter for other specified prophylactic measures ==

== ENCOUNTER 2021-10-03 15:18 | Outpatient (RCR) | payer MEDICARE, OTHER | END 2021-10-04 | disposition home or self-care (01) | LOC: CR3 15:18 | PROVIDERS: ATTEND Family Medicine | DX: I25.10 Atherosclerotic heart disease of native coronary artery without angina pectoris (principal); I10 Essential (primary) hypertension; Z95.5 Presence of coronary angioplasty implant and graft ==

== ENCOUNTER 2021-11-23 15:32 | Outpatient (RCR) | payer MEDICARE, OTHER | END 2021-12-04 | disposition home or self-care (01) | LOC: CR3 15:32 | PROVIDERS: ATTEND Family Medicine | DX: I25.10 Atherosclerotic heart disease of native coronary artery without angina pectoris (principal); I10 Essential (primary) hypertension; Z95.5 Presence of coronary angioplasty implant and graft ==

== ENCOUNTER 2022-01-23 15:12 | Outpatient (RCR) | payer MEDICARE, OTHER ==
[~2022-01-23 15:12] MED LIST changes: +CLOP-31 PO; -CLOP75TA69 PO
== END 2022-02-03 | disposition home or self-care (01) ==
LOC: CR3 15:12
PROVIDERS: ATTEND Family Medicine
DX: I25.10 Atherosclerotic heart disease of native coronary artery without angina pectoris (principal); I10 Essential (primary) hypertension; Z95.5 Presence of coronary angioplasty implant and graft

== ENCOUNTER → 2022-01-25 | Outpatient (CLI) | payer MEDICARE, OTHER ==
--- NOTE | 2022-01-25 16:55 | Diagnostic Imaging Report ---
PROCEDURE: US right lower extremity venous. TECHNIQUE: Multiple real-time grayscale images were obtained over the right lower extremity in various projections. Additional spectral analysis and color Doppler duplex images were also obtained. INDICATION: Right lower extremity swelling EXAMINATION: Grayscale and color Doppler evaluation of the deep veins of the right lower extremity were performed with waveform analysis. FINDINGS: Continuous venous flow is present. No intraluminal filling defect is identified. There is normal compressibility and response to augmentation. No abnormal perivascular fluid collection is identified. IMPRESSION: No ultrasound evidence of right lower extremity deep venous thrombosis. Dictated by: Dictated on workstation # [id number]
== END ==
LOC: RAD 16:15
PROVIDERS: ATTEND Family Medicine
DX: M79.89 Other specified soft tissue disorders (principal)

== ENCOUNTER 2022-04-05 15:00 | Outpatient (RCR) | payer MEDICARE, OTHER | END 2022-04-06 | disposition home or self-care (01) | LOC: CR3 15:00 | PROVIDERS: ATTEND Family Medicine | DX: I25.10 Atherosclerotic heart disease of native coronary artery without angina pectoris (principal); I10 Essential (primary) hypertension; Z95.5 Presence of coronary angioplasty implant and graft; Z29.8 Encounter for other specified prophylactic measures ==

== ENCOUNTER 2022-06-02 15:39 | Outpatient (RCR) | payer MEDICARE, OTHER | END 2022-06-04 | disposition home or self-care (01) | LOC: CR3 15:39 | PROVIDERS: ATTEND Family Medicine | DX: I25.10 Atherosclerotic heart disease of native coronary artery without angina pectoris (principal); I10 Essential (primary) hypertension; Z95.5 Presence of coronary angioplasty implant and graft ==

== ENCOUNTER → 2022-08-04 | Outpatient (RCR) | payer MEDICARE, OTHER | END | disposition home or self-care (01) | LOC: CR3 06-05 11:25 | PROVIDERS: ATTEND Family Medicine | DX: I25.10 Atherosclerotic heart disease of native coronary artery without angina pectoris (principal); I10 Essential (primary) hypertension; Z95.5 Presence of coronary angioplasty implant and graft; Z29.8 Encounter for other specified prophylactic measures ==

== ENCOUNTER → 2022-09-07 | Outpatient (CLI) | payer MEDICARE, OTHER ==
--- NOTE | 2022-09-07 14:36 | Diagnostic Imaging Report ---
CLINICAL INDICATION: Patient with history of stroke. Patient states TIA x 4-5 weeks ago and having issues. Patient is with left-sided weakness. EXAM: MRI of the brain performed without IV contrast. Sequences include axial DWI, ADC map, axial T1, axial T2, sagittal FLAIR, axial FLAIR, axial gradient echo, and sagittal T1. COMPARISON: Head CT without contrast dated 08/28/2022. MRI of the brain without contrast dated 12/17/2018. FINDINGS: There is no evidence of acute cerebral infarct, intracranial hemorrhage, or gross mass effect. There is a small area of T2 shine through involving the posterior limb of the right internal capsule/stock radiata region with associated high T2 signal. There are diffuse focal, patchy, and confluent areas of high T2 signal white matter changes seen throughout both cerebral hemispheres and periventricular regions as well as bienvenido, likely representing chronic small vessel ischemic disease and leukoaraiosis. There is diffuse brain parenchymal volume loss seen. There is normal esteban-white matter distinction. There is no significant midline shift or herniation. The visualized [place] vascular structures are unremarkable. The sellar and suprasellar regions are unremarkable as visualized. There is no evidence of hydrocephalus. The basal cisterns are unremarkable. There are postoperative changes to both globes which may be related to lens implants. Otherwise, both globes are unremarkable. Skull and extracranial soft tissue are unremarkable. There are moderate to large amounts of mucosal thickening and consolidation involving the right sphenoid sinus region. There is minimal mucosal thickening involving the left maxillary sinus. Temporal bones show no significant abnormality. IMPRESSION: 1: There is no evidence of an acute intracranial process. 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 3: There is significant sphenoid sinus disease. Dictated by: Dictated on workstation # [id number]
== END ==
LOC: RAD 13:27
PROVIDERS: ATTEND Nurse Practitioner Family
DX: G45.9 Transient cerebral ischemic attack, unspecified (principal); I67.81 Acute cerebrovascular insufficiency; J32.9 Chronic sinusitis, unspecified; I67.82 Cerebral ischemia
CPT/HCPCS: 70551

== ENCOUNTER → 2022-09-28 | Outpatient (CLI) | payer MEDICARE, OTHER | LOC: CARD 12:25 | PROVIDERS: ATTEND Internal Medicine Cardiovascular Disease | DX: I11.9 Hypertensive heart disease without heart failure (principal); I08.0 Rheumatic disorders of both mitral and aortic valves | CPT/HCPCS: 93306 ==

== ENCOUNTER → 2022-10-04 | Outpatient (RCR) | payer MEDICARE, OTHER | END | disposition home or self-care (01) | LOC: CR3 08-07 15:04 | PROVIDERS: ATTEND Family Medicine | DX: I25.10 Atherosclerotic heart disease of native coronary artery without angina pectoris (principal); I10 Essential (primary) hypertension; Z95.5 Presence of coronary angioplasty implant and graft ==

== ENCOUNTER → 2022-12-04 | Outpatient (RCR) | payer MEDICARE, OTHER | END | disposition home or self-care (01) | LOC: CR3 10-06 14:58 | PROVIDERS: ATTEND Family Medicine | DX: I25.10 Atherosclerotic heart disease of native coronary artery without angina pectoris (principal); I10 Essential (primary) hypertension; Z95.5 Presence of coronary angioplasty implant and graft ==